=== PATIENT | female | born 1960 | race Caucasian/White ===

== ENCOUNTER 2022-03-27 15:31 | Outpatient (REF) | payer BC, SELFPAY ==
--- NOTE | ~2022-03-27 | XR_ITS ---
EXAMINATION: XR CHEST CLINICAL INFORMATION: Acute bronchitis. COMPARISON: None TECHNIQUE: 2 views of the chest were obtained. FINDINGS: Patchy and dense consolidation suggestive of pneumonia at the right lower lobe. Left lung is normally aerated. There is probably a right pleural effusion. No significant left pleural effusion. No pulmonary vascular congestion. XR/XR chest 2V IMPRESSION: Right lower lobe pneumonia. Probable small right pleural effusion.
== END 2022-03-27 15:32 | disposition home or self-care (01) ==
LOC: HO.HMGCX 15:31
PROVIDERS: PCP Internal Medicine; Visit Provider Internal Medicine
DX: J20.9 Acute bronchitis, unspecified (principal)
CPT/HCPCS: 71046

== ENCOUNTER 2022-03-27 18:14 | Inpatient (IN) | payer BC, SELFPAY ==
--- NOTE | ~2022-03-27 | XR_ITS ---
EXAMINATION: XR CHEST CLINICAL INFORMATION: Chest tube COMPARISON: 03/28/2022 TECHNIQUE: Frontal view of the chest was obtained. FINDINGS: Right-sided chest tube is unchanged. Small right pleural effusion. Similar appearance of the mid to lower lung airspace opacity on the right. The left lung is clear. No pneumothorax. The cardiomediastinal silhouette is unchanged. XR/XR chest 1V IMPRESSION: Right-sided chest tube remains in place with small right pleural effusion. Similar right mid to lower lung airspace opacity.
--- NOTE | ~2022-03-27 | XR_ITS ---
EXAMINATION: XR CHEST CLINICAL INFORMATION: Chest tube insertion. COMPARISON: 03/27/2022 chest radiographs and chest CT scan from today. TECHNIQUE: Frontal view of the chest was obtained. FINDINGS: Support devices: Right chest tube with tip terminating overlying the right upper lobe. Persistent opacification at the right lung base. No overt pneumothorax. The left lung is clear. The heart and mediastinal structures are unremarkable. XR/XR chest 1V IMPRESSION: Persistent right pleural effusion appears similar if not mildly decreased with right chest tube in place. No overt pneumothorax.
--- NOTE | ~2022-03-27 | XR_ITS ---
EXAMINATION: XR CHEST CLINICAL INFORMATION: Hypoxia COMPARISON: 03/29/2022 TECHNIQUE: Frontal view of the chest was obtained. FINDINGS: Right-sided chest tube in place. The lungs are well expanded. Streaky basilar opacities bilaterally. No pleural effusion or pneumothorax. The cardiomediastinal silhouette is within normal limits. XR/XR chest 1V IMPRESSION: Streaky basilar opacities favor atelectasis. No dense consolidation. No pleural effusion or pneumothorax.
--- NOTE | ~2022-03-27 | XR_ITS ---
EXAMINATION: XR CHEST CLINICAL INFORMATION: Postop day 2 status post right VATS pleural decortication COMPARISON: 03/31/2022 TECHNIQUE: Frontal view of the chest was obtained. FINDINGS: Right-sided chest tube extends toward the apex. Decreasing opacification at the right base compared to prior. Persistent left basilar opacity. No definite pneumothorax seen. The cardiomediastinal silhouette is unchanged. XR/XR chest 1V IMPRESSION: Right-sided chest tube in place with no definite pneumothorax seen. Decreasing right basilar opacity. Similar opacity at the left base.
--- NOTE | ~2022-03-27 | XR_ITS ---
EXAMINATION: XR CHEST CLINICAL INFORMATION: Pneumonia. Follow-up. COMPARISON: Chest radiographs 04/02/2022, 04/01/2022, 03/31/2022, 03/30/2022 TECHNIQUE: Portable upright AP view of the chest was obtained. FINDINGS: Patchy airspace opacity right base is stable to decreased when compared with prior exam 04/02/2022. There is resolution airspace opacities left base since 03/30/2022. The vascularity is normal. The visualized cardiac and mediastinal contours and bony structures are stable. XR/XR chest 1V IMPRESSION: -Patchy airspace opacity right base stable to decreased when compared with 04/02/2022. -Resolution left base opacities since 03/30/2022.
--- NOTE | ~2022-03-27 | CT_ITS ---
EXAMINATION: CT CHEST WITHOUT CONTRAST CLINICAL INFORMATION: Pneumonia/sepsis COMPARISON: None TECHNIQUE: Multidetector volumetric CT imaging of the chest was done. Axial MIP volume rendering provided. Sagittal and coronal reformatted images were obtained. This CT examination was performed using dose optimization techniques as appropriate, variously including the following: *Automated exposure control *Adjustment of mA and/or kV according to patient size (this includes techniques or standardized protocols for targeted exams where dose is matched to indication/reason for exam; i.e. extremities or head) *Use of iterative reconstruction technique DLP: 220 mGy-cm FINDINGS: PMP: Inflated lungs with moderate opacity in the right lower lung. LUNGS: There is right lower lobe collapse secondary to large loculated right pleural effusion. The left lung is expanded is platelike atelectasis of the left lung base. Patchy peripheral-based groundglass opacity seen in the lingula left upper lobe, suspicious for infiltrates. There are small pulmonary cysts and bilateral lung apices.. MEDIASTINUM: The thyroid lobes are symmetrical and normal. The central trachea and the bronchi widely patent. Heart size and the great vessels are normal caliber. No pericardial effusion seen. No abnormal size mediastinal or hilar lymph nodes seen. CORONARY ARTERY CALCIFICATION: No calcification seen in the coronary arteries. PLEURA: There is a loculated large right pleural effusion. No pleural calcification or thickening seen. AXILLA: No abnormal size axillary lymph nodes seen. The chest wall is unremarkable. UPPER ABDOMEN: Visualized liver, spleen, pancreas and bilateral adrenal glands unremarkable. OSSEOUS STRUCTURES: No aggressive lytic or sclerotic process seen. There is mild ventral spondylosis mid dorsal spine. CT/CT chest wo IV con IMPRESSION: 1. Large loculated right pleural effusion with right lower lobe collapse. 2. There is platelike atelectasis left lung base. 3. There are patchy peripheral-based groundglass opacity in the lingula and left upper lobe, suspicious for developing infiltrates. 4. No abnormal mediastinal or axillary lymph nodes seen. Fleischner guidelines were followed.
--- NOTE | ~2022-03-27 | XR_ITS ---
EXAMINATION: XR chest 1V CLINICAL INFORMATION: Reason for Exam s/p R VATS decortication. in PACU COMPARISON: Chest radiograph 03/30/2022 TECHNIQUE: One view of the chest FINDINGS: Right-sided thoracostomy tube in place with interval development of a new trace right lateral pneumothorax and new right chest wall subcutaneous emphysema. Slightly increased bibasilar opacities which may reflect worsening atelectasis, aspiration or infection. No pleural effusion. Unchanged cardiomediastinal silhouette. XR/XR chest 1V IMPRESSION: * Right-sided thoracostomy tube in place with interval development of a new trace right lateral pneumothorax and new right chest wall subcutaneous emphysema. * Slightly increased bibasilar opacities which may reflect worsening atelectasis, aspiration or infection. These critical results were discussed with Dr. Kulkarni by telephone at 03/30/2022 10:21 PM and it was ascertained that the content and urgency of the report was understood at the time of direct communication.
--- NOTE | ~2022-03-27 | XR_ITS ---
EXAMINATION: XR CHEST CLINICAL INFORMATION: Postop day 3 status post R VATS decortication. COMPARISON: 04/01/2022 TECHNIQUE: Frontal view of the chest was obtained. FINDINGS: Cardiac leads overlie the chest. Right-sided chest tube in place. Elevated right hemidiaphragm. Airspace opacity of the right base appears increased from prior. No pleural effusion or pneumothorax. The cardiomediastinal silhouette is unchanged. XR/XR chest 1V IMPRESSION: Increased right basilar airspace opacity which could represent atelectasis or pneumonia. Elevated right hemidiaphragm. No pneumothorax.
--- NOTE | ~2022-03-27 | XR_ITS ---
EXAMINATION: XR CHEST CLINICAL INFORMATION: Postop day 1 status post R VATS decortication. COMPARISON: 03/30/2022 TECHNIQUE: Frontal view of the chest was obtained. FINDINGS: Right-sided chest tube remains extending toward the apex. Subcutaneous emphysema of the right chest wall again noted. Cardiac leads overlie the chest. The lungs are well expanded. Improving aeration in the retrocardiac region. Increased small right pleural effusion. Trace right apical pneumothorax is again suspected. The cardiomediastinal silhouette is unchanged. XR/XR chest 1V IMPRESSION: 1. Right-sided chest tube remains in place. Trace right apical pneumothorax is again suspected. 2. Increased small right pleural effusion. 3. Improving aeration at the left base.
--- NOTE | 2022-03-27 18:31 | ED.URI ---
HPI - URI/Sore Throat General Chief Complaint: Dyspnea <TYRA Hinson - Last Filed: 03/27/22 18:41> Stated Complaint: dr sent her in/ pneumonia? <TYRA Hinson - Last Filed: 03/27/22 18:41> Time Seen by Provider: 03/27/22 19:40 <TYRA Hinson - Last Filed: 03/27/22 18:41> Source: patient <Elen Soto MD - Last Filed: 03/27/22 20:47> Mode of arrival: ambulatory <Elen Soto MD - Last Filed: 03/27/22 20:47> Limitations: no limitations <Elen Soto MD - Last Filed: 03/27/22 20:47> History of Present Illness HPI Narrative: Patient comes to the emergency room complaining of shortness of breath for 3 days. Patient states that around [place] time, patient was diagnosed with a URI, slowly started getting better. However, over last 3 days, symptoms got actually worse. Patient states she went to see her primary care physician, a chest x-ray was taken today, patient was diagnosed with pneumonia, patient's oxygen saturation is 91% on room air and drops to the high 80s with minimal exertion. Patient has not been formally diagnosed with COPD, but patient has been a long-time smoker, quit smoking approximately a month ago. Patient is not oxygen dependent. Patient denies nausea vomiting diarrhea abdominal pain. No UTI symptoms. No lower extremity pain or swelling. <Elen Soto MD - Last Filed: 03/27/22 20:47> Related Data Home Medications: Home Medications Medication Instructions Recorded Confirmed flu vac qs 2019(4 yr up)CD(PF) 60 ml IM 02/17/20 02/17/20 mcg(15 mcgx4)/0.5 mL IM syringe pneumococcal 23-juan ps vaccine 25 ml IM 02/17/20 02/17/20 mcg/0.5 mL injection syringe varicella-zoster glycoE [id number] IM 02/17/20 02/17/20 adj(PF) 50 mcg/0.5 mL IM susp, kit Previous Rx's Medication Instructions Recorded buspirone 5 mg tablet 5 mg PO BID #180 tabs 03/18/20 fluoxetine 20 mg tablet 20 mg PO DAILY #90 tabs 06/10/21 <TYRA Hinson - Last Filed: 03/27/22 18:41> Allergies/Adverse Reactions: Allergies Allergy/AdvReac Type Severity Reaction Status Date / Time sulfamethoxazole Allergy Unknown unknown Verified 03/27/22 14:42 <TYRA Hinson - Last Filed: 03/27/22 18:41> Review of Systems Review of Systems: Constitutional : No Weight loss, No Fever, No Chills, No Night Sweats, No Fatigue, No Malaise ENT/Mouth : No Hearing loss, No Ear Pain, No Nasal Congestion, No Sinus Pain, No Hoarseness, No sore throat, No Rhinorrhea, No Swallowing Difficulty Eyes: No Eye Pain, No Swelling, No Redness, No Foreign Body, No Discharge, No Vision Changes Cardiovascular : No Chest Pain, no orthopnea, no edema or palpitations Respiratory : Complaining of cough, a bit of wheezing and shortness of breath worse with exertion. Gastrointestinal : No Nausea, No Vomiting, No Diarrhea, No Constipation, No abdominal Pain, No Hematochezia, No Melena Genitourinary : no irregular bleeding, No Dysuria, No Urinary Frequency, No Hematuria, No Urinary Incontinence, No Urgency, No Flank Pain, No Urinary Flow Changes, No Hesitancy Musculoskeletal : No joint pain, No Myalgias, No Joint Swelling Skin : No Skin Lesions, No rash Neuro : No Weakness, No Numbness, No Paresthesias, No Loss of Consciousness, No Dizziness, No Headache Psych : No Anxiety/Panic, No Depression, No SI/HI/AH/VH, No Social Issues, Heme/Lymph: No Bruising, No Bleeding,No Lymphadenopathy Endocrine : No Polyuria, No Polydipsia, No Temperature Intolerance <Elen Soto MD - Last Filed: 03/27/22 20:47> [facility] Past Medical History Medical History: Medical History Anxiety Basal cell carcinoma Depression DJD (degenerative joint disease) <TYRA Hinson - Last Filed: 03/27/22 18:41> Family History Family History: Family History (Updated 02/11/20 @ 11:06 by Sharon Strange, RMA, [employer]) Father Cancer Mother HTN (hypertension) <TYRA Hinson Last Filed: 03/27/22 18:41> Social History Social History: Social History Advance Directives: No Advance Directives Information Provided: No <TYRA Hinson - Last Filed: 03/27/22 18:41> Physical Exam Vital Signs: Vital Signs: Last Vital Signs Temp 99.4 F 03/27/22 19:42 Pulse 91 03/27/22 19:42 Resp 21 H 03/27/22 19:42 BP 124/68 03/27/22 19:42 Pulse Ox 94 03/27/22 19:42 O2 Del Method 03/27/22 19:42 O2 Flow Rate 3 03/27/22 19:42 BMI result Body Mass Index 25.0 <TYRA Hinson - Last Filed: 03/27/22 18:41> Vital Signs: Last Vital Signs Temp 99.4 F 03/27/22 19:42 Pulse 91 03/27/22 19:42 Resp 21 H 03/27/22 19:42 BP 124/68 03/27/22 19:42 Pulse Ox 94 03/27/22 19:42 O2 Del Method 03/27/22 19:42 O2 Flow Rate 3 03/27/22 19:42 BMI result Body Mass Index 25.0 <Elen Soto MD - Last Filed: 03/27/22 20:47> Const: Other: Appearance: Alert. Oriented X3. No acute distress. Eyes: Pupils equal, round and reactive to light. ENT: Pharynx normal. Neck: Normal inspection. Neck supple. No lymph nodes noted. No crepitus CVS: Normal heart rate and rhythm. Pulses normal. Normal S1 and S2 Respiratory: No respiratory distress. Oxygen saturation drops to 87 % on 2 L while talking or minimal exertion. Patient's oxygen saturation in the mid 90s on 2 L. Abdomen: Soft and nontender. No rigidity. No distention. Skin: Skin warm and dry. Normal skin color. Normal skin turgor. Extremities: No lower extremity edema. No Lacerations. No Rash Neuro: Oriented X 3. No motor deficit. No sensory deficit. Moving all extremities. No slurred speech. CN 2 through 12 grossly intact Psych: calm, cooperative, normal affect <Elen Soto MD - Last Filed: 03/27/22 20:47> Course Course Course Narrative: RUTHIE--62-year-old female with a past medical history of anxiety, basal cell carcinoma, depression, DJD, sent in from Urgent Care for pneumonia appreciated on outpatient x-ray. Patient reports increasing SOB since Sunday. Tachycardic, hypoxic to 91% on RA, diminished lung sounds throughout with expiratory wheeze EKG, labs, lactic/blood cultures, IVF, DuoNeb, Azithromax & Rocephin ordered in triage <TYRA Hinson - Last Filed: 03/27/22 18:41> Medications Administered Discontinued Medications Generic Name Dose Route Start Last Admin Trade Name Freq PRN Reason Stop Dose Admin Albuterol Sulfate 7.5 mg/ 0 mg 03/27/22 18:35 03/27/22 19:18 Ipratropium [place] 0.5 mg INHALE 03/27/22 18:36 7.5 each ONCE ONE Administration Ceftriaxone Sodium 1 gm/ 50 mls @ 100 mls/hr 03/27/22 18:33 03/27/22 20:17 Sodium Chloride IV 03/27/22 19:02 Infused ONCE ONE Infusion Azithromycin 500 mg/ Sodium 250 mls @ 125 mls/hr 03/27/22 18:33 03/27/22 20:17 Chloride IV 03/27/22 20:32 125 mls/hr ONCE ONE Administration Sodium Chloride 500 mls @ 999 mls/hr 03/27/22 18:45 03/27/22 20:17 Ns IV 03/27/22 19:15 Infused .Q31M MARTÍN Infusion <TYRA Hinson - Last Filed: 03/27/22 18:41> Medications Administered Discontinued Medications Generic Name Dose Route Start Last Admin Trade Name Freq PRN Reason Stop Dose Admin Albuterol Sulfate 7.5 mg/ 0 mg 03/27/22 18:35 03/27/22 19:18 Ipratropium [place] 0.5 mg INHALE 03/27/22 18:36 7.5 each ONCE ONE Administration Ceftriaxone Sodium 1 gm/ 50 mls @ 100 mls/hr 03/27/22 18:33 03/27/22 20:17 Sodium Chloride IV 03/27/22 19:02 Infused ONCE ONE Infusion Azithromycin 500 mg/ Sodium 250 mls @ 125 mls/hr 03/27/22 18:33 03/27/22 20:17 Chloride IV 03/27/22 20:32 125 mls/hr ONCE ONE Administration Sodium Chloride 500 mls @ 999 mls/hr 03/27/22 18:45 03/27/22 20:17 Ns IV 03/27/22 19:15 Infused .Q31M MARTÍN Infusion <Elen Soto MD - Last Filed: 03/27/22 20:47> Medical Decision Making Medical Decision Making [facility] Narrative: Patient has a very high white blood cell count, 35.7. Lactic acid within normal limits, normal blood pressure. Sepsis not suspected. Patient has already been started on antibiotics, ceftriaxone azithromycin and IV fluids. Chest x-ray shows pneumonia <Elen Soto MD - Last Filed: 03/27/22 20:47> Differential Diagnosis Differential Diagnoses: The differential diagnosis associated with the presentation includes (Pneumonia, CHF, URI, COVID, influenza) <Elen Soto MD - Last Filed: 03/27/22 20:47> Admission/Observation Consideration of admission/observation: Escalation of care including admission/observation considered (Patient's oxygen saturation dropped to the high 80s even on 2 L of oxygen, patient is not oxygen dependent.) <Elen Soto MD - Last Filed: 03/27/22 20:47> Consult Healthcare Provider Management of the patient was discussed with: Hospitalist (Dr. Kulkarni will admit pt to the inpatient service.) <Elen Soto MD - Last Filed: 03/27/22 20:47> Lab Data [facility] Lab Attestation statement: I reviewed the patient's lab results. <Elen Soto MD - Last Filed: 03/27/22 20:47> Result Diagrams: 03/27/22 18:54 03/27/22 18:54 <TYRA Hinson - Last Filed: 03/27/22 18:41> Labs: Lab Results 03/27/22 03/27/22 03/27/22 Range/Units 18:54 18:54 18:54 WBC 35.7 H* (4.8-10.8) X10*3/uL RBC 4.35 (4.20-5.50) X10*6/uL Hgb 12.1 (12.0-16.0) g/dl Hct 37.4 (37.0-47.0) % MCV 86.0 (80.0-98.0) fL MCH 27.8 (27.0-33.0) pg MCHC 32.4 (31.0-35.0) g/dl RDW 13.1 (11.0-16.0) % Plt Count 653 H (160-400) X10*3/uL MPV 8.9 L (9.4-12.3) fL Immature Gran % (Auto) 0.9 H (0.0-0.4) % Neut % (Auto) 91.3 H (45-73) % Lymph % (Auto) 3.6 L (20-40) % [place] % (Auto) 4.0 (2-11) % Eos % (Auto) 0.0 (0-4) % Baso % (Auto) 0.2 (0-2) % Lymph # (Auto) 1.3 (1.2-4.9) X10*3/uL [place] # (Auto) 1.4 H (0.1-1.2) X10*3/uL Eos # (Auto) 0.0 (0.0-0.4) X10*3/uL Baso # (Auto) 0.1 (0.0-0.2) X10*3/uL Abs Immat Gran (auto) 0.31 H (0.00-0.03) X10*3/uL Absolute Neuts (auto) 32.6 H (2.0-8.3) x10*3/uL Absolute Nucleated RBC 0.000 (0.0-0.012) X10*3/uL Nucleated RBC % (auto) 0.0 (0.0-0.2) /100WBC Smear Tech's Comments VERIFIED PT (10.0-13.1) SEC INR (0.9-1.1) Sodium 133 L (135-145) mmol/L Potassium 3.8 (3.3-5.1) mmol/L Chloride 98 (96-108) mmol/L Carbon Dioxide 22 (22-29) mmol/L Anion Gap 17 (12-20) BUN 17 H (9-16) mg/dL Creatinine 0.69 (0.5-1.4) mg/dL Estim Creat Clear Calc 86.4 Estimated GFR > 60 Random Glucose 188 H (60-115) mg/dL Lactic Acid 1.5 (0.5-2.0) mmol/L Calcium 9.0 (8.4-10.2) mg/dL Magnesium 1.9 (1.6-2.6) mg/dL Total Bilirubin 0.3 (0.0-1.0) mg/dL Direct Bilirubin 0.2 (0.0-0.5) mg/dL AST 7 (5-31) U/L ALT 7 (0-31) U/L Alkaline Phosphatase 132 H (39-117) U/L Troponin I High Sens (<3.5-17.0) ng/L B-Natriuretic Peptide (<100) pg/mL Total Protein 6.7 (6.5-8.0) g/dL Albumin 4.0 (3.5-5.0) g/dL Influenza Type A (PCR) (Negative) Influenza Type B (PCR) (Negative) RSV RNA Qual (PCR) (Negative) SARS-CoV-2 RNA (RT-PCR) (Negative) 03/27/22 03/27/22 03/27/22 Range/Units 18:54 18:54 18:54 WBC (4.8-10.8) X10*3/uL RBC (4.20-5.50) X10*6/uL Hgb (12.0-16.0) g/dl Hct (37.0-47.0) % MCV (80.0-98.0) fL MCH (27.0-33.0) pg MCHC (31.0-35.0) g/dl RDW (11.0-16.0) % Plt Count (160-400) X10*3/uL MPV (9.4-12.3) fL Immature Gran % (Auto) (0.0-0.4) % Neut % (Auto) (45-73) % Lymph % (Auto) (20-40) % [place] % (Auto) (2-11) % Eos % (Auto) (0-4) % Baso % (Auto) (0-2) % Lymph # (Auto) (1.2-4.9) X10*3/uL [place] # (Auto) (0.1-1.2) X10*3/uL Eos # (Auto) (0.0-0.4) X10*3/uL Baso # (Auto) (0.0-0.2) X10*3/uL Abs Immat Gran (auto) (0.00-0.03) X10*3/uL Absolute Neuts (auto) (2.0-8.3) x10*3/uL Absolute Nucleated RBC (0.0-0.012) X10*3/uL Nucleated RBC % (auto) (0.0-0.2) /100WBC Smear Tech's Comments PT 15.9 H (10.0-13.1) SEC INR 1.4 H (0.9-1.1) Sodium (135-145) mmol/L Potassium (3.3-5.1) mmol/L Chloride (96-108) mmol/L Carbon Dioxide (22-29) mmol/L Anion Gap (12-20) BUN (9-16) mg/dL Creatinine (0.5-1.4) mg/dL Estim Creat Clear Calc Estimated GFR Random Glucose (60-115) mg/dL Lactic Acid (0.5-2.0) mmol/L Calcium (8.4-10.2) mg/dL Magnesium (1.6-2.6) mg/dL Total Bilirubin (0.0-1.0) mg/dL Direct Bilirubin (0.0-0.5) mg/dL AST (5-31) U/L ALT (0-31) U/L Alkaline Phosphatase (39-117) U/L Troponin I High Sens < 3.5 (<3.5-17.0) ng/L B-Natriuretic Peptide (<100) pg/mL Total Protein (6.5-8.0) g/dL Albumin (3.5-5.0) g/dL Influenza Type A (PCR) NEGATIVE (Negative) Influenza Type B (PCR) NEGATIVE (Negative) RSV RNA Qual (PCR) NEGATIVE (Negative) SARS-CoV-2 RNA (RT-PCR) NEGATIVE (Negative) 03/27/22 Range/Units 18:54 WBC (4.8-10.8) X10*3/uL RBC (4.20-5.50) X10*6/uL Hgb (12.0-16.0) g/dl Hct (37.0-47.0) % MCV (80.0-98.0) fL MCH (27.0-33.0) pg MCHC (31.0-35.0) g/dl RDW (11.0-16.0) % Plt Count (160-400) X10*3/uL MPV (9.4-12.3) fL Immature Gran % (Auto) (0.0-0.4) % Neut % (Auto) (45-73) % Lymph % (Auto) (20-40) % [place] % (Auto) (2-11) % Eos % (Auto) (0-4) % Baso % (Auto) (0-2) % Lymph # (Auto) (1.2-4.9) X10*3/uL [place] # (Auto) (0.1-1.2) X10*3/uL Eos # (Auto) (0.0-0.4) X10*3/uL Baso # (Auto) (0.0-0.2) X10*3/uL Abs Immat Gran (auto) (0.00-0.03) X10*3/uL Absolute Neuts (auto) (2.0-8.3) x10*3/uL Absolute Nucleated RBC (0.0-0.012) X10*3/uL Nucleated RBC % (auto) (0.0-0.2) /100WBC Smear Tech's Comments PT (10.0-13.1) SEC INR (0.9-1.1) Sodium (135-145) mmol/L Potassium (3.3-5.1) mmol/L Chloride (96-108) mmol/L Carbon Dioxide (22-29) mmol/L Anion Gap (12-20) BUN (9-16) mg/dL Creatinine (0.5-1.4) mg/dL Estim Creat Clear Calc Estimated GFR Random Glucose (60-115) mg/dL Lactic Acid (0.5-2.0) mmol/L Calcium (8.4-10.2) mg/dL Magnesium (1.6-2.6) mg/dL Total Bilirubin (0.0-1.0) mg/dL Direct Bilirubin (0.0-0.5) mg/dL AST (5-31) U/L ALT (0-31) U/L Alkaline Phosphatase (39-117) U/L Troponin I High Sens (<3.5-17.0) ng/L B-Natriuretic Peptide 30 (<100) pg/mL Total Protein (6.5-8.0) g/dL Albumin (3.5-5.0) g/dL Influenza Type A (PCR) (Negative) Influenza Type B (PCR) (Negative) RSV RNA Qual (PCR) (Negative) SARS-CoV-2 RNA (RT-PCR) (Negative) <TYRA Hinson - Last Filed: 03/27/22 18:41> Lab Results 03/27/22 03/27/22 03/27/22 Range/Units 18:54 18:54 18:54 WBC 35.7 H* (4.8-10.8) X10*3/uL RBC 4.35 (4.20-5.50) X10*6/uL Hgb 12.1 (12.0-16.0) g/dl Hct 37.4 (37.0-47.0) % MCV 86.0 (80.0-98.0) fL MCH 27.8 (27.0-33.0) pg MCHC 32.4 (31.0-35.0) g/dl RDW 13.1 (11.0-16.0) % Plt Count 653 H (160-400) X10*3/uL MPV 8.9 L (9.4-12.3) fL Immature Gran % (Auto) 0.9 H (0.0-0.4) % Neut % (Auto) 91.3 H (45-73) % Lymph % (Auto) 3.6 L (20-40) % [place] % (Auto) 4.0 (2-11) % Eos % (Auto) 0.0 (0-4) % Baso % (Auto) 0.2 (0-2) % Lymph # (Auto) 1.3 (1.2-4.9) X10*3/uL [place] # (Auto) 1.4 H (0.1-1.2) X10*3/uL Eos # (Auto) 0.0 (0.0-0.4) X10*3/uL Baso # (Auto) 0.1 (0.0-0.2) X10*3/uL Abs Immat Gran (auto) 0.31 H (0.00-0.03) X10*3/uL Absolute Neuts (auto) 32.6 H (2.0-8.3) x10*3/uL Absolute Nucleated RBC 0.000 (0.0-0.012) X10*3/uL Nucleated RBC % (auto) 0.0 (0.0-0.2) /100WBC Smear Tech's Comments VERIFIED PT (10.0-13.1) SEC INR (0.9-1.1) Sodium 133 L (135-145) mmol/L Potassium 3.8 (3.3-5.1) mmol/L Chloride 98 (96-108) mmol/L Carbon Dioxide 22 (22-29) mmol/L Anion Gap 17 (12-20) BUN 17 H (9-16) mg/dL Creatinine 0.69 (0.5-1.4) mg/dL Estim Creat Clear Calc 86.4 Estimated GFR > 60 Random Glucose 188 H (60-115) mg/dL Lactic Acid 1.5 (0.5-2.0) mmol/L Calcium 9.0 (8.4-10.2) mg/dL Magnesium 1.9 (1.6-2.6) mg/dL Total Bilirubin 0.3 (0.0-1.0) mg/dL Direct Bilirubin 0.2 (0.0-0.5) mg/dL AST 7 (5-31) U/L ALT 7 (0-31) U/L Alkaline Phosphatase 132 H (39-117) U/L Troponin I High Sens (<3.5-17.0) ng/L B-Natriuretic Peptide (<100) pg/mL Total Protein 6.7 (6.5-8.0) g/dL Albumin 4.0 (3.5-5.0) g/dL Influenza Type A (PCR) (Negative) Influenza Type B (PCR) (Negative) RSV RNA Qual (PCR) (Negative) SARS-CoV-2 RNA (RT-PCR) (Negative) 03/27/22 03/27/22 03/27/22 Range/Units 18:54 18:54 18:54 WBC (4.8-10.8) X10*3/uL RBC (4.20-5.50) X10*6/uL Hgb (12.0-16.0) g/dl Hct (37.0-47.0) % MCV (80.0-98.0) fL MCH (27.0-33.0) pg MCHC (31.0-35.0) g/dl RDW (11.0-16.0) % Plt Count (160-400) X10*3/uL MPV (9.4-12.3) fL Immature Gran % (Auto) (0.0-0.4) % Neut % (Auto) (45-73) % Lymph % (Auto) (20-40) % [place] % (Auto) (2-11) % Eos % (Auto) (0-4) % Baso % (Auto) (0-2) % Lymph # (Auto) (1.2-4.9) X10*3/uL [place] # (Auto) (0.1-1.2) X10*3/uL Eos # (Auto) (0.0-0.4) X10*3/uL Baso # (Auto) (0.0-0.2) X10*3/uL Abs Immat Gran (auto) (0.00-0.03) X10*3/uL Absolute Neuts (auto) (2.0-8.3) x10*3/uL Absolute Nucleated RBC (0.0-0.012) X10*3/uL Nucleated RBC % (auto) (0.0-0.2) /100WBC Smear Tech's Comments PT 15.9 H (10.0-13.1) SEC INR 1.4 H (0.9-1.1) Sodium (135-145) mmol/L Potassium (3.3-5.1) mmol/L Chloride (96-108) mmol/L Carbon Dioxide (22-29) mmol/L Anion Gap (12-20) BUN (9-16) mg/dL Creatinine (0.5-1.4) mg/dL Estim Creat Clear Calc Estimated GFR Random Glucose (60-115) mg/dL Lactic Acid (0.5-2.0) mmol/L Calcium (8.4-10.2) mg/dL Magnesium (1.6-2.6) mg/dL Total Bilirubin (0.0-1.0) mg/dL Direct Bilirubin (0.0-0.5) mg/dL AST (5-31) U/L ALT (0-31) U/L Alkaline Phosphatase (39-117) U/L Troponin I High Sens < 3.5 (<3.5-17.0) ng/L B-Natriuretic Peptide (<100) pg/mL Total Protein (6.5-8.0) g/dL Albumin (3.5-5.0) g/dL Influenza Type A (PCR) NEGATIVE (Negative) Influenza Type B (PCR) NEGATIVE (Negative) RSV RNA Qual (PCR) NEGATIVE (Negative) SARS-CoV-2 RNA (RT-PCR) NEGATIVE (Negative) 03/27/22 Range/Units 18:54 WBC (4.8-10.8) X10*3/uL RBC (4.20-5.50) X10*6/uL Hgb (12.0-16.0) g/dl Hct (37.0-47.0) % MCV (80.0-98.0) fL MCH (27.0-33.0) pg MCHC (31.0-35.0) g/dl RDW (11.0-16.0) % Plt Count (160-400) X10*3/uL MPV (9.4-12.3) fL Immature Gran % (Auto) (0.0-0.4) % Neut % (Auto) (45-73) % Lymph % (Auto) (20-40) % [place] % (Auto) (2-11) % Eos % (Auto) (0-4) % Baso % (Auto) (0-2) % Lymph # (Auto) (1.2-4.9) X10*3/uL [place] # (Auto) (0.1-1.2) X10*3/uL Eos # (Auto) (0.0-0.4) X10*3/uL Baso # (Auto) (0.0-0.2) X10*3/uL Abs Immat Gran (auto) (0.00-0.03) X10*3/uL Absolute Neuts (auto) (2.0-8.3) x10*3/uL Absolute Nucleated RBC (0.0-0.012) X10*3/uL Nucleated RBC % (auto) (0.0-0.2) /100WBC Smear Tech's Comments PT (10.0-13.1) SEC INR (0.9-1.1) Sodium (135-145) mmol/L Potassium (3.3-5.1) mmol/L Chloride (96-108) mmol/L Carbon Dioxide (22-29) mmol/L Anion Gap (12-20) BUN (9-16) mg/dL Creatinine (0.5-1.4) mg/dL Estim Creat Clear Calc Estimated GFR Random Glucose (60-115) mg/dL Lactic Acid (0.5-2.0) mmol/L Calcium (8.4-10.2) mg/dL Magnesium (1.6-2.6) mg/dL Total Bilirubin (0.0-1.0) mg/dL Direct Bilirubin (0.0-0.5) mg/dL AST (5-31) U/L ALT (0-31) U/L Alkaline Phosphatase (39-117) U/L Troponin I High Sens (<3.5-17.0) ng/L B-Natriuretic Peptide 30 (<100) pg/mL Total Protein (6.5-8.0) g/dL Albumin (3.5-5.0) g/dL Influenza Type A (PCR) (Negative) Influenza Type B (PCR) (Negative) RSV RNA Qual (PCR) (Negative) SARS-CoV-2 RNA (RT-PCR) (Negative) <Elen Soto MD - Last Filed: 03/27/22 20:47> Independent Interpretation I performed an independent interpretation of an: EKG (EKG my interpretation, sinus rhythm, heart rate 106, nonspecific T-wave inversions in lead 3 and AVF, QTC 425) and Plain X-Ray (My interpretation of chest x-ray: Right pleural effusion versus pneumonia) <Elen Soto MD - Last Filed: 03/27/22 20:47> Radiology Impression Discussion of test interpretation with radiology: I have reviewed the radiologist's reading. <Elen Soto MD - Last Filed: 03/27/22 20:47> Radiologist Impression: FINDINGS: Patchy and dense consolidation suggestive of pneumonia at the right lower lobe. Left lung is normally aerated. There is probably a right pleural effusion. No significant left pleural effusion. No pulmonary vascular congestion. XR/XR chest 2V IMPRESSION: Right lower lobe pneumonia. Probable small right pleural effusion. <Elen Soto MD - Last Filed: 03/27/22 20:47> Critical Care Time Critical Care Time Critical Care Time: Yes <Elen Soto MD - Last Filed: 03/27/22 20:47> Total Critical Care Time: 60 <Elen Soto MD - Last Filed: 03/27/22 20:47> Attestation: I have personally provided critical care time. Time includes review of lab data, radiology results, discussion with consultants, and monitoring for potential decompensation. Intervention performed as documented. <Elen Soto MD - Last Filed: 03/27/22 20:47> Discharge Plan Discharge Clinical Impression: Pneumonia <TYRA Hinson - Last Filed: 03/27/22 18:41> Patient Disposition: Admitted As Inpatient <TYRA Hinson - Last Filed: 03/27/22 18:41> Prescriptions: No Action buspirone 5 mg tablet 5 mg PO BID Qty: 180 6RF fluoxetine 20 mg tablet 20 mg PO DAILY Qty: 90 4RF Flucelvax Quad [id number] (PF) 60 mcg (15 mcg x 4)/0.5 mL syringe IM Shingrix (PF) 50 mcg/0.5 mL suspension for reconstitution IM Pneumovax-23 25 mcg/0.5 mL syringe IM <TYRA Hinson - Last Filed: 03/27/22 18:41>
[2022-03-27 18:32] VITALS: BP 184/86; PULSE 112; RESP 24; TEMP 36.9; O2SAT 91; BMI 25.0
--- NOTE | 2022-03-27 18:33 | ECG_ITS ---
Test Reason : SOB Blood Pressure : / mmHG Vent. Rate : 106 BPM Atrial Rate : 106 BPM P-R Int : 176 ms QRS Dur : 086 ms QT Int : 320 ms P-R-T Axes : 029 000 -24 degrees QTc Int : 425 ms Sinus tachycardia Possible Left atrial enlargement ST & T wave abnormality, consider inferior ischemia Abnormal ECG No previous ECGs available Referred By: Kalani Samuels Electronically Signed By:Dallas Scott
[2022-03-27 19:04] LABS: Basophils Absolute Auto 0.1 X10*3/uL (0.0-0.2); Basophils Percent Auto 0.2 % (0-2); Hematocrit 37.4 % (37.0-47.0); Hemoglobin 12.1 g/dl (12.0-16.0); Imm Gran Abs Auto 0.31 X10*3/uL (0.00-0.03); Imm Gran Pct Auto 0.9 % (0.0-0.4); Lymphocytes Absolute Auto 1.3 X10*3/uL (1.2-4.9); Lymphocytes Percent Auto 3.6 % (20-40); MANUAL DIFF FLAG SCAN; Mean Corpuscular HGB Conc 32.4 g/dl (31.0-35.0); Mean Corpuscular Hemoglobin 27.8 pg (27.0-33.0); Mean Platelet Volume 8.9 fL (9.4-12.3); Monocytes Absolute Auto 1.4 X10*3/uL (0.1-1.2); Neutrophils Absolute Auto 32.6 x10*3/uL (2.0-8.3); Neutrophils Percent Auto 91.3 % (45-73); Platelet Count 653 X10*3/uL (160-400); Red Blood Count 4.35 X10*6/uL (4.20-5.50); Red Cell Distribution Width 13.1 % (11.0-16.0); SCAN SMEAR FLAG 1
[2022-03-27 19:08] LABS: White Blood Count 35.7 X10*3/uL (4.8-10.8)
[2022-03-27 19:10] LABS: INTERNATIONAL NORM RATIO 1.4 (0.9-1.1); Prothrombin Time 15.9 SEC (10.0-13.1)
[2022-03-27 19:16] LABS: Lactic Acid 1.5 mmol/L (0.5-2.0)
[2022-03-27 19:21] VITALS: PULSE 98; RESP 27; O2SAT 96
[2022-03-27 19:21] LABS: Alanine Aminotransferase 7 U/L (0-31); Alkaline Phosphatase 132 U/L (39-117); Anion Gap 17 (12-20); Aspartate Amino Transferase 7 U/L (5-31); Bilirubin Direct 0.2 mg/dL (0.0-0.5); Bilirubin Total 0.3 mg/dL (0.0-1.0); Blood Urea Nitrogen 17 mg/dL (9-16); Carbon Dioxide 22 mmol/L (22-29); Chloride 98 mmol/L (96-108); Creatinine Clr Calc Pharmacy 86.4; Estimated Glomerular Filt Rate > 60; Glucose Random 188 mg/dL (60-115); Magnesium 1.9 mg/dL (1.6-2.6); Potassium 3.8 mmol/L (3.3-5.1); Sodium 133 mmol/L (135-145); Total Protein 6.7 g/dL (6.5-8.0)
[2022-03-27] MEDS: cefTRIAXone sodium 1 GM in 0.9 % Sodium Chloride 50 ML IV (19:25)
[2022-03-27 19:26] LABS: B Type Natriuretic Peptide 30 pg/mL (<100)
[2022-03-27] MEDS: 0.9 % Sodium Chloride 500 ML 999 ML IV (19:26)
[2022-03-27 19:28] LABS: Troponin-I High Sensitivity < 3.5 ng/L (<3.5-17.0)
--- NOTE | 2022-03-27 19:29 | PC.NURSE ---
this rn assumed care of pt at 0. remaining lab work obtained iv placed. pt medicated according to may. RT at bedside. pt resting comfortably on stretcher at this time
[2022-03-27 19:42] VITALS: BP 124/68; PULSE 91; RESP 21; TEMP 37.4; O2SAT 94
[2022-03-27 19:44] LABS: SLIDE REVIEW VERIFIED
[2022-03-27 19:45] LABS: Influenza A PCR NEGATIVE (Negative); Influenza B PCR NEGATIVE (Negative); Resp Syncy Virus RNA Qual PCR NEGATIVE (Negative); SARS COV2 PCR INHOUSE NEGATIVE (Negative)
[2022-03-27] MEDS: Azithromycin 500 MG in 0.9 % Sodium Chloride 250 ML 125 MG IV (20:17)
[2022-03-27 20:30] VITALS: BP 124/75; PULSE 87
[2022-03-27 20:48] VITALS: BP 129/76; PULSE 89; RESP 28; O2SAT 93
--- NOTE | 2022-03-27 20:56 | PHA.MEDREC ---
Pharmacy Consult ? Medication Reconciliation Pharmacy has completed the medication reconciliation. Spoke with patient who knew all home meds. patient did not take any medications today.
--- NOTE | 2022-03-27 21:35 | PC.NURSE ---
this rn asssisted pt in using bedside commode. pt daughter at bedside at this time. pt repositioned back to bed hospitalist at bedside at this time for assessment
[2022-03-27 21:53] VITALS: BP 136/80; PULSE 87; RESP 29; TEMP 36.7; O2SAT 92
--- NOTE | 2022-03-27 22:37 | P.HPHOSP_ITS ---
History of Present Illness Date of Service: 03/27/22 Chief Complaint: fatigue 62-year-old female with past medical history of basal cell carcinoma, depression, anxiety presents to the hospital with complaints of shortness of breath, significant fatigue, cough. Patient reports that her symptoms started in February, slightly improved at the end of the month but reoccurred about 3 days ago. patient reports no fever or chills, reports significant fatigue or she is sleeping most of the time, has cough, significant shortness of breath. patient otherwise denies any chest pain, no abdominal pain nausea or vomiting, she has poor appetite and low oral intake. Denies any urinary symptoms and no lower extremity edema. On arrival to the ED patient found to be hypoxic with minimal movement dropping to 91% at rest. Labs are significant for WBC count of 35.7, viral serology negative Chest x-ray shows right lower lobe pneumonia Review of Systems Review of Systems: Yes all other systems are reviewed and are negative [facility] Medical History Anxiety Basal cell carcinoma Depression DJD (degenerative joint disease) Family History Father Cancer Mother HTN (hypertension) Social History Smoked in Last 30 Days: No Use of substances other than those prescribed or required for medical reasons: No Advance Directives: No Advance Directives Information Provided: No Patient : No Meds Allergies Allergy/AdvReac Type Severity Reaction Status Date / Time sulfamethoxazole Allergy Unknown unknown Verified 03/27/22 14:42 Active Medications: Current Medications Pharmacy Consult (Consult Rx Perform Med Rec) 1 each MISCELLANE ONCE PRN PRN Reason: Consult order Home Medications Medication Instructions Recorded Confirmed Last Taken Type apple cider vinegar 300 mg tablet 300 mg PO DAILY 03/27/22 03/27/22 Unknown History claudia (Zingiber officinalis) 250 250 mg PO DAILY 03/27/22 03/27/22 Unknown History mg capsule (claudia extract) multivitamin 1 tab PO DAILY 03/27/22 03/27/22 Unknown History oxycodone 15 mg tablet 1 tab PO Q6H PRN severe pain 03/27/22 03/27/22 Unknown History pregabalin 225 mg capsule 1 cap PO BID 03/27/22 03/27/22 Unknown History turmeric root extract 500 mg 500 mg PO DAILY 03/27/22 03/27/22 Unknown History capsule Physical Exam Vital Signs and Narrative: Vital Signs: Last Vital Signs Temp 98.1 F 03/27/22 21:53 Pulse 87 03/27/22 21:53 Resp 29 H 03/27/22 21:53 BP 136/80 03/27/22 21:53 Pulse Ox 92 03/27/22 21:53 O2 Del Method 03/27/22 21:53 O2 Flow Rate 2 03/27/22 21:53 BMI result Body Mass Index 25.0 Const: General: cooperative and no acute distress Mauricio entation/consciousness: patient oriented x3 Eyes: General: appearance normal, both eyes and all related structures Resp: Other: right lower lobe crackles Effort & Inspection: normal respiratory effort Cardio: Rate: regular rate Rhythm: regular rhythm GI: Palpation (GI): Soft to palpation Auscultation: normal bowel sounds Skin: General skin exam: no rashes or lesions noted Neuro: General: patient oriented x3 Cognition (Neuro): normal cognition Extrem: General: Yes normal to inspection and Yes no pedal edema Results Labs 03/27/22 18:54 03/27/22 18:54 Labs: Laboratory Results - last 24 hr 03/27/22 03/27/22 03/27/22 18:54 18:54 18:54 MCV 86.0 MCH 27.8 MCHC 32.4 RDW 13.1 Plt Count 653 H MPV 8.9 L Immature Gran % (Auto) 0.9 H Neut % (Auto) 91.3 H Lymph % (Auto) 3.6 L [place] % (Auto) 4.0 Eos % (Auto) 0.0 Baso % (Auto) 0.2 Lymph # (Auto) 1.3 [place] # (Auto) 1.4 H Eos # (Auto) 0.0 Baso # (Auto) 0.1 Abs Immat Gran (auto) 0.31 H Absolute Neuts (auto) 32.6 H Absolute Nucleated RBC 0.000 Nucleated RBC % (auto) 0.0 Smear Tech's Comments VERIFIED PT INR Anion Gap 17 Estim Creat Clear Calc 86.4 Estimated GFR > 60 Random Glucose 188 H Lactic Acid 1.5 Calcium 9.0 Magnesium 1.9 Total Bilirubin 0.3 Direct Bilirubin 0.2 AST 7 ALT 7 Alkaline Phosphatase 132 H Troponin I High Sens B-Natriuretic Peptide Total Protein 6.7 Albumin 4.0 Influenza Type A (PCR) Influenza Type B (PCR) RSV RNA Qual (PCR) SARS-CoV-2 RNA (RT-PCR) 03/27/22 03/27/22 03/27/22 18:54 18:54 18:54 MCV MCH MCHC RDW Plt Count MPV Immature Gran % (Auto) Neut % (Auto) Lymph % (Auto) [place] % (Auto) Eos % (Auto) Baso % (Auto) Lymph # (Auto) Dod[place] # (Auto) Eos # (Auto) Baso # (Auto) Abs Immat Gran (auto) Absolute Neuts (auto) Absolute Nucleated RBC Nucleated RBC % (auto) Smear Tech's Comments PT 15.9 H INR 1.4 H Anion Gap Estim Creat Clear Calc Estimated GFR Random Glucose Lactic Acid Calcium Magnesium Total Bilirubin Direct Bilirubin AST ALT Alkaline Phosphatase Troponin I High Sens < 3.5 B-Natriuretic Peptide Total Protein Albumin Influenza Type A (PCR) NEGATIVE Influenza Type B (PCR) NEGATIVE RSV RNA Qual (PCR) NEGATIVE SARS-CoV-2 RNA (RT-PCR) NEGATIVE 03/27/22 18:54 MCV MCH MCHC RDW Plt Count MPV Immature Gran % (Auto) Neut % (Auto) Lymph % (Auto) [place] % (Auto) Eos % (Auto) Baso % (Auto) Lymph # (Auto) [place] # (Auto) Eos # (Auto) Baso # (Auto) Abs Immat Gran (auto) Absolute Neuts (auto) Absolute Nucleated RBC Nucleated RBC % (auto) Smear Tech's Comments PT INR Anion Gap Estim Creat Clear Calc Estimated GFR Random Glucose Lactic Acid Calcium Magnesium Total Bilirubin Direct Bilirubin AST ALT Alkaline Phosphatase Troponin I High Sens B-Natriuretic Peptide 30 Total Protein Albumin Influenza Type A (PCR) Influenza Type B (PCR) RSV RNA Qual (PCR) SARS-CoV-2 RNA (RT-PCR) Assessment and Plan (1) Pneumonia: Status: Acute (2) Acute bronchitis: Status: Acute (3) Acute respiratory failure with hypoxia: Status: Acute Plan 62-year-old female with past medical history of depression anxiety presents the hospital with acute respiratory failure found to have pneumonia # acute hypoxic respiratory failure - oxygen dropping to 90 at rest, becoming dyspneic on minimal of her knee even when talking - likely secondary to acute pneumonia - which she with IV antibiotics - continue O2, , wean off as tolerated # community-acquired pneumonia - likely superimposed given recent viral infection - with she with IV antibiotics - follow cultures DVT prophylaxis: Lovenox given hypoxia and requirement for oxygen as well as IV antibiotics for pneumonia patient required minimum 2 night inpatient stay for further management Time Spent With Patient Time: Total time managing care of this patient today ____ minutes. Quality Stroke Does the patient have a stroke diagnosis?: No VTE Prior VTE?: No VTE Risk Level:: Medical - moderate - high VTE Device Contraindication: Treatment Not Indicated VTE Drug Contraindication: N/A - Med Ordered
[2022-03-27] MEDS: Pregabalin 75 MG CAPSULE 225 MG PO (23:00)
[2022-03-27] MEDS: Enoxaparin Sodium 40 MG/0.4 ML SYRINGE SUBCUT (23:00)
[2022-03-28] VITALS (16 sets, daily range): BP systolic 124–155; BP diastolic 69–86; PULSE 91–106; RESP 17–31; TEMP 36.6–37.7; O2SAT 90–96
[2022-03-28] MEDS: 0.9 % Sodium Chloride Flush 3 ML SYRINGE IVFLUSH ×4 (00:34→23:59)
[2022-03-28] MEDS: methylPREDNISolone Sod Succ 40 MG/ML VIAL IVPUSH ×2 (00:34→09:01)
[2022-03-28 06:55] LABS: Basophils Absolute Auto 0.1 X10*3/uL (0.0-0.2); Basophils Percent Auto 0.3 % (0-2); Eosinophils Absolute Auto 0.1 X10*3/uL (0.0-0.4); Eosinophils Percent Auto 0.2 % (0-4); Hematocrit 35.8 % (37.0-47.0); Imm Gran Abs Auto 0.71 X10*3/uL (0.00-0.03); Imm Gran Pct Auto 1.8 % (0.0-0.4); Lymphocytes Absolute Auto 0.9 X10*3/uL (1.2-4.9); Lymphocytes Percent Auto 2.3 % (20-40); MANUAL DIFF FLAG SCAN; Mean Corpuscular HGB Conc 33.5 g/dl (31.0-35.0); Mean Corpuscular Volume 86.5 fL (80.0-98.0); Monocytes Percent Auto 2.4 % (2-11); Neutrophils Absolute Auto 36.2 x10*3/uL (2.0-8.3); Platelet Count 596 X10*3/uL (160-400); Red Blood Count 4.14 X10*6/uL (4.20-5.50); Red Cell Distribution Width 13.3 % (11.0-16.0); SCAN SMEAR FLAG 1
[2022-03-28 07:01] LABS: White Blood Count 38.9 X10*3/uL (4.8-10.8)
[2022-03-28 07:20] LABS: SLIDE REVIEW VERIFIED
[2022-03-28 07:22] LABS: Anion Gap 16 (12-20); Blood Urea Nitrogen 13 mg/dL (9-16); Calcium 9.1 mg/dL (8.4-10.2); Carbon Dioxide 25 mmol/L (22-29); Chloride 100 mmol/L (96-108); Creatinine Clr Calc Pharmacy 90.3; Estimated Glomerular Filt Rate > 60; Glucose Random 174 mg/dL (60-115); Potassium 4.5 mmol/L (3.3-5.1); Sodium 136 mmol/L (135-145)
[2022-03-28] MEDS: Pregabalin 75 MG CAPSULE 225 MG PO ×2 (09:01→20:58)
[2022-03-28] MEDS: FLUoxetine HCl 20 MG CAPSULE PO (09:01)
[2022-03-28] MEDS: Multivitamin TABLET 1 TAB PO (09:01)
[2022-03-28] MEDS: oxyCODONE HCl Immed Release 15 MG TABLET PO (09:04)
--- NOTE | 2022-03-28 13:04 | PM.CNPUL ---
History of Present Illness History of Present Illness Consult date: 03/28/22 Chief complaint: Hypoxic resp failure, PNA Narrative: 62-year-old lady, recent approximately 20 pack-year smoker, with underlying history of basal cell carcinoma under dermatology care, anxiety, and depression admitted on 03/27/2022 with approximately 2 week history of dyspnea and fevers that initially started with what appears to have been an upper respiratory viral infection around [place] 2022. Patient with vaccine an waning symptom over the last four days with progressively worsening dyspnea and development of productive cough. On ER evaluation significantly hypoxic now requiring 4 to 6 L of supplemental oxygen to maintain normal oximetry. Started on coverage for or community-acquired pneumonia. CT chest with demonstration of large right-sided loculated pleural effusion. Review of Systems Constitutional: Constitutional: Denies daytime sleepiness, Denies excessive sweating, Denies fatigue, Denies fever(s), Denies lethargy, Reports malaise, Denies night sweats, Denies snoring and Denies weight loss Eyes: Eyes: Denies blurry vision and Denies itchy eyes ENT: Denies nasal congestion, Denies post nasal drip, Denies sinus pain, Denies sinus pressure and Denies other ( Thrush) Cardiovascular: Cardiovascular: Denies chest pain, Denies pedal edema, Reports dyspnea, Denies orthopnea, Denies paroxysmal nocturnal dyspnea and Reports other ( Right-sided chest discomfort) Respiratory: Respiratory: Reports cough, Denies hemoptysis, Reports excessive phlegm production, Reports dyspnea, Denies snoring and Denies wheezing Gastrointestinal: Gastrointestinal: Denies abdominal pain and Denies heartburn Musculoskeletal: Musculoskeletal: Denies myalgias, Denies arthralgias and Denies joint swelling Integumentary/Breasts: Skin/Breast: Denies rash Neurologic: Denies memory loss and Denies seizure-like activity Psychiatric: Psychiatric: Denies abnormal sleep pattern, Denies anxiety and Denies memory loss Endocrine: Endocrine: Denies excessive sweating, Denies fatigue and Denies heat intolerance Hematologic/Lymphatic: Hematologic/Lymphatic: Denies easy bruising Allergic/Immunologic: Allergic/Immunologic: Denies itchy eyes, Denies seasonal rhinorrhea and Denies wheezing PMFSH Past Medical History Medical History Anxiety Basal cell carcinoma Depression DJD (degenerative joint disease) Family History Family History Father Cancer Mother HTN (hypertension) Social History Social History Smoked in Last 30 Days: No Use of substances other than those prescribed or required for medical reasons: No Advance Directives: No Advance Directives Information Provided: No Patient : No Meds Allergies Allergy/AdvReac Type Severity Reaction Status Date / Time sulfamethoxazole Allergy Unknown unknown Verified 03/27/22 14:42 Active Medications: Current Medications Acetaminophen (Acetaminophen 325 Mg Tablet) 650 mg PO Q6H PRN PRN Reason: Pain, Mild (Pain Scale 1-3) Azithromycin (Azithromycin 500 Mg Tablet) 500 mg PO Q24H [facility] Albuterol Sulfate 2.5 mg/ (Ipratropium [place] 0.5 mg) 0 mg INHALE RQ4H WHILE AWAKE [facility] Last Admin: 03/28/22 11:27 Dose: 1 each Albuterol Sulfate 2.5 mg/ (Ipratropium [place] 0.5 mg) 0 mg INHALE Q2H PRN PRN Reason: Shortness of Breath/Wheezing Last Admin: 03/28/22 03:47 Dose: 2.5 each Docusate Sodium (Docusate Sodium 100 Mg Capsule) 100 mg PO DAILY PRN PRN Reason: Constipation Enoxaparin Sodium (Enoxaparin Sodium 40 Mg/0.4 Ml Syringe) 40 mg SUBCUT Q24H [facility] Last Admin: 03/27/22 23:00 Dose: 40 mg Fluoxetine HCl (Fluoxetine Hcl 20 Mg Capsule) 20 mg PO DAILY [facility] Last Admin: 03/28/22 09:01 Dose: 20 mg Methylprednisolone Sodium Succinate (Methylprednisolone Sod Succ 40 Mg/Ml Vial) 40 mg IVPUSH BID [facility] Last Admin: 03/28/22 09:01 Dose: 40 mg Multivitamins/Vitamin C (Multivitamin Tablet) 1 tab PO DAILY [facility] Last Admin: 03/28/22 09:01 Dose: 1 tab Ondansetron HCl (Ondansetron Hcl 4 Mg/2 Ml Vial) 4 mg IVPUSH Q8H PRN PRN Reason: Nausea and Vomiting Oxycodone HCl (Oxycodone Hcl Immed Release 15 Mg Tablet) 15 mg PO Q6H PRN PRN Reason: severe pain Last Admin: 03/28/22 09:04 Dose: 15 mg Pharmacy Consult (Consult Rx Perform Med Rec) 1 each MISCELLANE ONCE PRN PRN Reason: Consult order Pharmacy Consult (Consult Rx Vancomycin Dosing) 1 each MISCELLANE DAILY PRN PRN Reason: Consult order Pregabalin (Pregabalin 75 Mg Capsule) 225 mg PO BID [facility] Last Admin: 03/28/22 09:01 Dose: 225 mg Sodium Chloride (0.9 % Sodium Chloride Flush 3 Ml Syringe) 3 ml IVFLUSH QSHIFT [facility] Last Admin: 03/28/22 08:00 Dose: 3 ml Home Medications Medication Instructions Recorded Confirmed Last Taken Type apple cider vinegar 300 mg tablet 300 mg PO DAILY 03/27/22 03/27/22 Unknown History claudia (Zingiber officinalis) 250 250 mg PO DAILY 03/27/22 03/27/22 Unknown History mg capsule (claudia extract) multivitamin 1 tab PO DAILY 03/27/22 03/27/22 Unknown History oxycodone 15 mg tablet 1 tab PO Q6H PRN severe pain 03/27/22 03/27/22 Unknown History pregabalin 225 mg capsule 1 cap PO BID 03/27/22 03/27/22 Unknown History turmeric root extract 500 mg 500 mg PO DAILY 03/27/22 03/27/22 Unknown History capsule Physical Exam Vital Signs: Vital Signs: Last Vital Signs Temp 97.9 F 03/28/22 09:07 Pulse 95 03/28/22 09:07 Resp 22 H 03/28/22 11:29 BP 124/69 03/28/22 09:07 Pulse Ox 96 03/28/22 09:07 O2 Del Method 03/28/22 09:07 O2 Flow Rate 5 03/28/22 09:07 BMI result Body Mass Index 25.0 Const: General: no acute distress and alert Nutritional Appearance: not obese Orientation/consciousness: Other orientation findings ( oriented) HEENT: Head: Yes atraumatic Mouth: no other ( thrush) Throat: No postnasal drainage Eyes: General: appearance normal, both eyes and all related structures Sclerae: sclerae normal EOM: EOMs intact bilaterally Neck: Neck: Yes supple Lymphatic: no lymphadenopathy noted Resp: Effort & Inspection: normal respiratory effort and no use of accessory muscles Auscultation: other ( crackles and poor air movement on the right) Cardio: Rate: regular rate Rhythm: regular rhythm Heart sounds: no gallops, no murmurs and no rubs GI: Palpation (GI): Soft to palpation and Other GI palpation findings present ( nontender) Skin: General skin exam: other ( warm) Rashes: no rashes Extrem: General: No clubbing, No cyanosis and No edema Results Laboratory Findings 03/28/22 06:30 03/28/22 06:30 ABG, PT/INR, D-dimer: PT/INR, D-dimer PT 15.9 SEC (10.0-13.1) H 03/27/22 18:54 INR 1.4 (0.9-1.1) H 03/27/22 18:54 Abnormal lab findings: Abnormal Labs 03/27/22 03/27/22 03/27/22 18:54 18:54 18:54 WBC 35.7 H* RBC Hct Plt Count 653 H MPV 8.9 L Immature Gran % (Auto) 0.9 H Neut % (Auto) 91.3 H Lymph % (Auto) 3.6 L Lymph # (Auto) Riley # (Auto) 1.4 H Abs Immat Gran (auto) 0.31 H Absolute Neuts (auto) 32.6 H PT 15.9 H INR 1.4 H Sodium 133 L BUN 17 H Random Glucose 188 H Alkaline Phosphatase 132 H 03/28/22 03/28/22 06:30 06:30 WBC 38.9 H* RBC 4.14 L Hct 35.8 L Plt Count 596 H MPV 9.0 L Immature Gran % (Auto) 1.8 H Neut % (Auto) 93.0 H Lymph % (Auto) 2.3 L Lymph # (Auto) 0.9 L Riley # (Auto) Abs Immat Gran (auto) 0.71 H Absolute Neuts (auto) 36.2 H PT INR Sodium BUN Random Glucose 174 H Alkaline Phosphatase Assessment and Plan (1) Loculated pleural effusion: Status: Acute (2) Bacterial pneumonia: Status: Acute Plan Impression: Likely bacterial superinfection of initial viral pneumonia with formation of right-sided loculated pleural effusion. Suspicion for staphylococcal pneumonia. Recommendation: Add vancomycin until cultures are pending, continue ceftriaxone. CT surgery evaluation for decortication (mechanical versus chemical), if unavailable today, placement of right-sided chest tube for chemical decortication by Interventional Radiology. Recommendations discussed with Dr. Goodwin. Time Spent With Patient Time: Total time managing care of this patient today ____ minutes. Procedures Date of Service Date of Service: 03/28/22
--- NOTE | 2022-03-28 13:46 | P.CONGS_ITS ---
History of Present Illness Consult details Consult date: 03/28/22 Reason for consult: other (right pleural effusion) Narrative: Patient is a 62 year old female who presented to the Emergency Department today with complaints of shortness of breath, right sided chest pain, cough, and significant fatigue. Patient states she has also felt feverish and has had soaking sweats at night recently. States she has felt sick for several weeks now beginning towards the end of February which she figured was due to a head cold characterized by cough and congestion. States the she was unable to do much because of her symptoms. Her symptoms continued but did not get worse until this past weekend. States this when she got home from work Sunday night she was extremely fatigued and when she woke up Sunday she was barely able to get out of bed. She experienced increasing shortness of breath and then right sided posterior chest wall pain which led her to seek help at the ER. While in the ER the patient had bloodwork done that showed a leukocytosis of 38 and a thrombocytosis. She has a CT chest done which shows a large loculated r ight pleural effusion with associated atelectasis, as well as some opacities in the left lung indicating an inflammatory condition. Due to these findings Thoracic Surgery was consulted for management. Review of Systems Constitutional: Constitutional: Denies body ache(s), Denies chills, Reports daytime sleepiness, Reports fatigue, Reports fever(s), Reports headache(s), Reports night sweats and Reports weakness Eyes: Eyes: Reports blurry vision and Denies loss of vision ENT: Denies dizziness, Reports headache(s), Reports hoarseness, Reports nasal congestion, Denies neck pain, Denies odynophagia, Denies sore throat, Denies throat swelling and Denies tongue swelling Cardiovascular: Cardiovascular: Denies chest pain, Denies edema, Denies irregular heart rhythm, Denies lightheadedness, Reports palpitations, Reports dyspnea and Reports dyspnea on exertion Respiratory: Respiratory: Reports chest congestion, Reports cough, Denies hemoptysis, Reports pain on inspiration, Reports pain with cough, Reports dyspnea, Reports dyspnea on exertion and Denies wheezing Gastrointestinal: Gastrointestinal: Reports melena, Reports hematochezia, Denies change in bowel habits and Denies odynophagia Genitourinary: Genitourinary: Denies urinary incontinence Musculoskeletal: Musculoskeletal: Reports back pain (chronic low back pain sciatica ), Reports muscle cramps and Denies neck pain Neurologic: Denies dizziness, Reports headache(s), Denies loss of vision and Reports weakness Endocrine: Endocrine: Reports fatigue and Reports palpitations Hematologic/Lymphatic: Hematologic/Lymphatic: Denies easy bleeding and Denies easy bruising Allergic/Immunologic: Allergic/Immunologic: Denies throat swelling, Denies tongue swelling and Denies wheezing PMFSH Past Medical History Medical History (Updated 03/28/22 @ 14:51 by Gen Goodwin MD) Anxiety Basal cell carcinoma Depression DJD (degenerative joint disease) Family History Family History Father Cancer Mother HTN (hypertension) Surgical History Surgical History (Updated 03/28/22 @ 13:47 by Marley Le PA-C) History of basal cell carcinoma excision Social History Social History service: No Current occupational status: employed Narrative Narrative: Quit smoking cigarettes in February 2022, prior to that she averaged 1ppd since age 22 (although started socially smoking age 15). Denies any daily alcohol use, but does have a glass of wine occasionally. Denies illicit drug use - patient states she has a pain contract for chronic opiates with [facility]. Meds Allergies Allergy/AdvReac Type Severity Reaction Status Date / Time sulfamethoxazole Allergy Intermediate Rash Verified 03/28/22 16:52 Active Medications: Current Medications Acetaminophen (Acetaminophen 325 Mg Tablet) 650 mg PO Q6H PRN PRN Reason: Pain, Mild (Pain Scale 1-3) Azithromycin (Azithromycin 500 Mg Tablet) 500 mg PO Q24H [facility] Albuterol Sulfate 2.5 mg/ (Ipratropium [place] 0.5 mg) 0 mg INHALE RQ4H WHILE AWAKE [facility] Last Admin: 03/28/22 11:27 Dose: 1 each Albuterol Sulfate 2.5 mg/ (Ipratropium [place] 0.5 mg) 0 mg INHALE Q2H PRN PRN Reason: Shortness of Breath/Wheezing Last Admin: 03/28/22 03:47 Dose: 2.5 each Docusate Sodium (Docusate Sodium 100 Mg Capsule) 100 mg PO DAILY PRN PRN Reason: Constipation Enoxaparin Sodium (Enoxaparin Sodium 40 Mg/0.4 Ml Syringe) 40 mg SUBCUT Q24H [facility] Last Admin: 03/27/22 23:00 Dose: 40 mg Fluoxetine HCl (Fluoxetine Hcl 20 Mg Capsule) 20 mg PO DAILY [facility] Last Admin: 03/28/22 09:01 Dose: 20 mg Vancomycin HCl 2,000 mg/ (Sodium Chloride) 540 mls @ 270 mls/hr IV ONCE ONE Stop: 03/28/22 15:02 Last Admin: 03/28/22 13:35 Dose: 270 mls/hr Methylprednisolone Sodium Succinate (Methylprednisolone Sod Succ 40 Mg/Ml Vial) 40 mg IVPUSH BID [facility] Last Admin: 03/28/22 09:01 Dose: 40 mg Multivitamins/Vitamin C (Multivitamin Tablet) 1 tab PO DAILY [facility] Last Admin: 03/28/22 09:01 Dose: 1 tab Ondansetron HCl (Ondansetron Hcl 4 Mg/2 Ml Vial) 4 mg IVPUSH Q8H PRN PRN Reason: Nausea and Vomiting Oxycodone HCl (Oxycodone Hcl Immed Release 15 Mg Tablet) 15 mg PO Q6H PRN PRN Reason: severe pain Last Admin: 03/28/22 09:04 Dose: 15 mg Pharmacy Consult (Consult Rx Perform Med Rec) 1 each MISCELLANE ONCE PRN PRN Reason: Consult order Pharmacy Consult (Consult Rx Vancomycin Dosing) 1 each MISCELLANE DAILY PRN PRN Reason: Consult order Pregabalin (Pregabalin 75 Mg Capsule) 225 mg PO BID [facility] Last Admin: 03/28/22 09:01 Dose: 225 mg Sodium Chloride (0.9 % Sodium Chloride Flush 3 Ml Syringe) 3 ml IVFLUSH QSHIFT [facility] Last Admin: 03/28/22 08:00 Dose: 3 ml Home Medications Medication Instructions Recorded Confirmed Last Taken Type apple cider vinegar 300 mg tablet 300 mg PO DAILY 03/27/22 03/27/22 Unknown History claudia (Zingiber officinalis) 250 250 mg PO DAILY 03/27/22 03/27/22 Unknown History mg capsule (claudia extract) multivitamin 1 tab PO DAILY 03/27/22 03/27/22 Unknown History oxycodone 15 mg tablet 1 tab PO Q6H PRN severe pain 03/27/22 03/27/22 Unknown History pregabalin 225 mg capsule 1 cap PO BID 03/27/22 03/27/22 Unknown History turmeric root extract 500 mg 500 mg PO DAILY 03/27/22 03/27/22 Unknown History capsule Physical Exam Vital Signs: Vital Signs: Last Vital Signs Temp 97.9 F 03/28/22 09:07 Pulse 95 03/28/22 09:07 Resp 22 H 03/28/22 11:29 BP 124/69 03/28/22 09:07 Pulse Ox 96 03/28/22 09:07 O2 Del Method 03/28/22 09:07 O2 Flow Rate 5 03/28/22 09:07 BMI result Body Mass Index 25.0 General: No acute distress, resting comfortably in bed, well developed Head: Normocephalic, atraumatic, symmetric Eyes: Sclera anicteric, eyelids without edema or erythema, +EOMS intact ENT: Oral mucosa and tongue are moist Neck: Soft, supple, symmetric, trachea midline, no crepitus, no mass visualized or palpated Cardiovascular: Regular rate and rhythm, no murmur/rubs/gallops, BUE and BLE without edema, no calf tenderness bilaterally Respiratory: Left lung CTA. Right BS absent at base to about mid-chest, then diminished to the apex. Breathing nonlabored, speaking in full sentences, on oxygen via nasal cannula. No use of accessory muscles. No obvious chest wall trauma. Gastrointestinal: Soft, non-tender, non-distended, +normoactive bowel sounds. Skin: Warm and dry throughout, no rashes Lymphatic: no cervical, supraclavicular, infraclavicular lymphadenopathy noted Neurological: Alert and oriented x 3, no focal neurological deficit noted Psychiatric: No agitation, appropriate affect Results Labs 03/28/22 06:30 03/28/22 06:30 Labs: Abnormal lab results 03/27/22 03/27/22 03/27/22 Range/Units 18:54 18:54 18:54 WBC 35.7 H* (4.8-10.8) X10*3/uL RBC (4.20-5.50) X10*6/uL Hct (37.0-47.0) % Plt Count 653 H (160-400) X10*3/uL MPV 8.9 L (9.4-12.3) fL Immature Gran % (Auto) 0.9 H (0.0-0.4) % Neut % (Auto) 91.3 H (45-73) % Lymph % (Auto) 3.6 L (20-40) % Lymph # (Auto) (1.2-4.9) X10*3/uL [place] # (Auto) 1.4 H (0.1-1.2) X10*3/uL Abs Immat Gran (auto) 0.31 H (0.00-0.03) X10*3/uL Absolute Neuts (auto) 32.6 H (2.0-8.3) x10*3/uL PT 15.9 H (10.0-13.1) SEC INR 1.4 H (0.9-1.1) Sodium 133 L (135-145) mmol/L BUN 17 H (9-16) mg/dL Random Glucose 188 H (60-115) mg/dL Alkaline Phosphatase 132 H (39-117) U/L 03/28/22 03/28/22 Range/Units 06:30 06:30 WBC 38.9 H* (4.8-10.8) X10*3/uL RBC 4.14 L (4.20-5.50) X10*6/uL Hct 35.8 L (37.0-47.0) % Plt Count 596 H (160-400) X10*3/uL MPV 9.0 L (9.4-12.3) fL Immature Gran % (Auto) 1.8 H (0.0-0.4) % Neut % (Auto) 93.0 H (45-73) % Lymph % (Auto) 2.3 L (20-40) % Lymph # (Auto) 0.9 L (1.2-4.9) X10*3/uL [place] # (Auto) (0.1-1.2) X10*3/uL Abs Immat Gran (auto) 0.71 H (0.00-0.03) X10*3/uL Absolute Neuts (auto) 36.2 H (2.0-8.3) x10*3/uL PT (10.0-13.1) SEC INR (0.9-1.1) Sodium (135-145) mmol/L BUN (9-16) mg/dL Random Glucose 174 H (60-115) mg/dL Alkaline Phosphatase (39-117) U/L Short CBC 03/27/22 03/28/22 Range/Units 18:54 06:30 WBC 35.7 H* 38.9 H* (4.8-10.8) X10*3/uL Hgb 12.1 12.0 (12.0-16.0) g/dl Hct 37.4 35.8 L (37.0-47.0) % Plt Count 653 H 596 H (160-400) X10*3/uL BMP 03/27/22 03/28/22 18:54 06:30 Sodium 133 L 136 Potassium 3.8 4.5 Chloride 98 100 Carbon Dioxide 22 25 BUN 17 H 13 Creatinine 0.69 0.66 Calcium 9.0 9.1 Liver Function 03/27/22 Range/Units 18:54 Total Bilirubin 0.3 (0.0-1.0) mg/dL Direct Bilirubin 0.2 (0.0-0.5) mg/dL AST 7 (5-31) U/L ALT 7 (0-31) U/L Alkaline Phosphatase 132 H (39-117) U/L Albumin 4.0 (3.5-5.0) g/dL Impressions Chest CT 03/28/22 11:02 IMPRESSION: 1. Large loculated right pleural effusion with right lower lobe collapse. 2. There is platelike atelectasis left lung base. 3. There are patchy peripheral-based groundglass opacity in the lingula and left upper lobe, suspicious for developing infiltrates. 4. No abnormal mediastinal or axillary lymph nodes seen. Fleischner guidelines were followed. Imaging CT scan - chest: report reviewed and image reviewed Assessment and Plan (1) Loculated pleural effusion: Status: Acute Ms. Hyde is a 62 year old female who has had progressively worsening shortness of breath, fatigue, and cough as well as new right posterior chest wall pain after feeling sick for several weeks. CT chest shows large loculated right pleural effusion. * Loculated right pleural effusion in association with her leukocytosis and history is concerning for empyema or complex parapneumonic effusion. * Recommend IR placement of pigtail chest tube today (as large of a tube that they have to facilitate drainage, 14Fr ideal). Once chest tube placed recommend it stay to -20 continuous suction and monitor fluid output overnight. * Send pleural fluid studies for routine studies + culture. * Will reassess patient with CXR tomorrow morning. If no significant improvement after chest tube placement, will plan for surgical decortication. * Patient on OR schedule for tomorrow @ 2:30pm. * Patient should be OOB ambulating at least 3-4 times daily. * Should be OOB to chair for all meals. * Pulmonary toilet: IS, flutter valve, ambulation. * Antibiotics per primary team. Currently on azithromycin and vanco IV. Cultures to be taken and cater to specific organism if possible. Preop checklist: * NPO except meds after MN * Labs as above. INR done. PTT ordered for the morning. * Type and screen ordered for tomorrow morning. * Abx: patient on azithromycin and vanco IV ATC. Will add Ancef 2g IV x 1 OCTOR[address] Case discussed with Dr. Monterroso. Thank you for the consultation. (2) Acute respiratory failure with hypoxia: Status: Acute (3) Pneumonia: Status: Acute (4) Sepsis: Status: Acute Time Spent With Patient Time: Total time managing care of this patient today ____ minutes. Procedures Date of Service Date of Service: 03/28/22
--- NOTE | 2022-03-28 14:24 | MHC.CM.PN ---
Met with patient and daughter, Diana in regards to discharge planning. Patient lives alone, ambulates independently and had no services prior to coming to the hospital. Patient is currently on oxygen at [facility] but not at baseline. PCP verified as Dr Keene. Patient received 4 Pfizer vaccines. Patient denies having a HCP. Information provided. Patient not interested in completing one at this time. No services anticipated to be needed at d/c because patient is not homebound. Diana will transport patient home when medically stable. Continue to monitor for d/c needs.
--- NOTE | 2022-03-28 14:27 | HO.PM.IMPN ---
Subjective Subjective Date of Service: 03/28/22 Interval History: Follow-up for acute hypoxemic respiratory failure secondary to pneumonia, sepsis, loculated pleural effusion. Review of Systems Patient is significantly short of breath with minimal exertion, talking in short sentences Has cough dry mostly. has tachycardia/tachypnea. Denies any nausea vomiting or abdominal pain , low-grade fever. Physical Exam Vital Signs: Vital Signs: Last Vital Signs Temp 98.6 F 03/28/22 14:02 Pulse 99 03/28/22 14:02 Resp 28 H 03/28/22 14:02 BP 155/86 H 03/28/22 14:02 Pulse Ox 93 03/28/22 14:02 O2 Del Method 03/28/22 14:02 O2 Flow Rate 5 03/28/22 14:02 BMI result Body Mass Index 25.0 Appearance: Alert.? Oriented X3.?sob at rest cvs: rrr, [id number] res: air entry diminshed righT>left , few rhonchii abd: no rebound or guarding ,nt, bs present. ext pulses present , no cyanosis. neuro: axo3 , nonfocal. Objective Data Active Medications Acetaminophen (Acetaminophen 325 Mg Tablet) 650 mg PO Q6H PRN PRN Reason: Pain, Mild (Pain Scale 1-3) Azithromycin (Azithromycin 500 Mg Tablet) 500 mg PO Q24H [facility] Albuterol Sulfate 2.5 mg/ (Ipratropium [place] 0.5 mg) 0 mg INHALE RQ4H WHILE AWAKE [facility] Last Admin: 03/28/22 11:27 Dose: 1 each Documented By: NANCIE Albuterol Sulfate 2.5 mg/ (Ipratropium [place] 0.5 mg) 0 mg INHALE Q2H PRN PRN Reason: Shortness of Breath/Wheezing Last Admin: 03/28/22 03:47 Dose: 2.5 each Documented By: ELOINA Docusate Sodium (Docusate Sodium 100 Mg Capsule) 100 mg PO DAILY PRN PRN Reason: Constipation Enoxaparin Sodium (Enoxaparin Sodium 40 Mg/0.4 Ml Syringe) 40 mg SUBCUT Q24H [facility] Last Admin: 03/27/22 23:00 Dose: 40 mg Documented By: CORINNE Fluoxetine HCl (Fluoxetine Hcl 20 Mg Capsule) 20 mg PO DAILY [facility] Last Admin: 03/28/22 09:01 Dose: 20 mg Documented By: ANDREY Vancomycin HCl 2,000 mg/ (Sodium Chloride) 540 mls @ 270 mls/hr IV ONCE ONE Stop: 03/28/22 15:02 Last Admin: 03/28/22 13:35 Dose: 270 mls/hr Documented By: ANDREY Methylprednisolone Sodium Succinate (Methylprednisolone Sod Succ 40 Mg/Ml Vial) 40 mg IVPUSH BID [facility] Last Admin: 03/28/22 09:01 Dose: 40 mg Documented By: ANDREY Multivitamins/Vitamin C (Multivitamin Tablet) 1 tab PO DAILY [facility] Last Admin: 03/28/22 09:01 Dose: 1 tab Documented By: ANDREY Ondansetron HCl (Ondansetron Hcl 4 Mg/2 Ml Vial) 4 mg IVPUSH Q8H PRN PRN Reason: Nausea and Vomiting Oxycodone HCl (Oxycodone Hcl Immed Release 15 Mg Tablet) 15 mg PO Q6H PRN PRN Reason: severe pain Last Admin: 03/28/22 09:04 Dose: 15 mg Documented By: ANDREY Pharmacy Consult (Consult Rx Perform Med Rec) 1 each MISCELLANE ONCE PRN PRN Reason: Consult order Pharmacy Consult (Consult Rx Vancomycin Dosing) 1 each MISCELLANE DAILY PRN PRN Reason: Consult order Pregabalin (Pregabalin 75 Mg Capsule) 225 mg PO BID [facility] Last Admin: 03/28/22 09:01 Dose: 225 mg Documented By: ANDREY Sodium Chloride (0.9 % Sodium Chloride Flush 3 Ml Syringe) 3 ml IVFLUSH QSHIFT [facility] Last Admin: 03/28/22 08:00 Dose: 3 ml Documented By: ANDREY Labs 03/28/22 06:30 03/28/22 06:30 Labs: Laboratory Results - last 24 hr 03/27/22 03/27/22 03/27/22 18:54 18:54 18:54 MCV 86.0 MCH 27.8 MCHC 32.4 RDW 13.1 Plt Count 653 H MPV 8.9 L Immature Gran % (Auto) 0.9 H Neut % (Auto) 91.3 H Lymph % (Auto) 3.6 L [place] % (Auto) 4.0 Eos % (Auto) 0.0 Baso % (Auto) 0.2 Lymph # (Auto) 1.3 [place] # (Auto) 1.4 H Eos # (Auto) 0.0 Baso # (Auto) 0.1 Abs Immat Gran (auto) 0.31 H Absolute Neuts (auto) 32.6 H Absolute Nucleated RBC 0.000 Nucleated RBC % (auto) 0.0 Smear Tech's Comments VERIFIED Smear Path Review SEE NOTE PT INR Anion Gap 17 Estim Creat Clear Calc 86.4 Estimated GFR > 60 Random Glucose 188 H Lactic Acid 1.5 Calcium 9.0 Magnesium 1.9 Total Bilirubin 0.3 Direct Bilirubin 0.2 AST 7 ALT 7 Alkaline Phosphatase 132 H Troponin I High Sens B-Natriuretic Peptide Total Protein 6.7 Albumin 4.0 Influenza Type A (PCR) Influenza Type B (PCR) RSV RNA Qual (PCR) SARS-CoV-2 RNA (RT-PCR) 03/27/22 03/27/22 03/27/22 18:54 18:54 18:54 MCV MCH MCHC RDW Plt Count MPV Immature Gran % (Auto) Neut % (Auto) Lymph % (Auto) [place] % (Auto) Eos % (Auto) Baso % (Auto) Lymph # (Auto) [place] # (Auto) Eos # (Auto) Baso # (Auto) Abs Immat Gran (auto) Absolute Neuts (auto) Absolute Nucleated RBC Nucleated RBC % (auto) Smear Tech's Comments Smear Path Review PT 15.9 H INR 1.4 H Anion Gap Estim Creat Clear Calc Estimated GFR Random Glucose Lactic Acid Calcium Magnesium Total Bilirubin Direct Bilirubin AST ALT Alkaline Phosphatase Troponin I High Sens < 3.5 B-Natriuretic Peptide Total Protein Albumin Influenza Type A (PCR) NEGATIVE Influenza Type B (PCR) NEGATIVE RSV RNA Qual (PCR) NEGATIVE SARS-CoV-2 RNA (RT-PCR) NEGATIVE 03/27/22 03/28/22 03/28/22 18:54 06:30 06:30 MCV 86.5 MCH 29.0 MCHC 33.5 RDW 13.3 Plt Count 596 H MPV 9.0 L Immature Gran % (Auto) 1.8 H Neut % (Auto) 93.0 H Lymph % (Auto) 2.3 L [place] % (Auto) 2.4 Eos % (Auto) 0.2 Baso % (Auto) 0.3 Lymph # (Auto) 0.9 L [place] # (Auto) 1.0 Eos # (Auto) 0.1 Baso # (Auto) 0.1 Abs Immat Gran (auto) 0.71 H Absolute Neuts (auto) 36.2 H Absolute Nucleated RBC 0.000 Nucleated RBC % (auto) 0.0 Smear Tech's Comments VERIFIED Smear Path Review PT INR Anion Gap 16 Estim Creat Clear Calc 90.3 Estimated GFR > 60 Random Glucose 174 H Lactic Acid Calcium 9.1 Magnesium Total Bilirubin Direct Bilirubin AST ALT Alkaline Phosphatase Troponin I High Sens B-Natriuretic Peptide 30 Total Protein Albumin Influenza Type A (PCR) Influenza Type B (PCR) RSV RNA Qual (PCR) SARS-CoV-2 RNA (RT-PCR) Assessment and Plan (1) Loculated pleural effusion: Status: Acute (2) Bacterial pneumonia: Status: Acute (3) Acute respiratory failure with hypoxia: Status: Acute (4) Pneumonia: Status: Acute (5) Personal history of nicotine dependence: Status: Acute (6) Sepsis: Status: Acute Plan 62-year-old female with past medical history of depression anxiety presents the hospital with acute respiratory failure found to have pneumonia # acute? hypoxic respiratory failure sce to sepsis(POA),pneumonia .ct hsows -loculated pleural effusion -? oxygen dropping to 90? at rest, becoming dyspneic on minimal execerion ,even at rest Lactic acid is normal, sepsis exam completed . continue vancomycin,? continue O2, pulm -recommended drainage and chest tube placement Discussed with the says thoracic surgery: Recommended the same through IR guided drainage and chest tube placement. npo #? community-acquired pneumonia -? likely superimposed given recent viral infection -? with she with IV antibiotics -? follow cultures ?DVT prophylaxis: hold Lovenox Inpatient need: Acute hypoxemic respiratory failure secondary to sepsis/pneumonia, loculated effusion need drainage and IV antibiotics, vanco trough monitoring as well as renal function and electrolytes monitoring. ? Time Spent With Patient Time: Total time managing care of this patient today ____ minutes. Quality Stroke Does the patient have a stroke diagnosis?: No VTE Prior VTE?: No VTE Risk Level:: Medical - moderate - high VTE Device Contraindication: Treatment Not Indicated VTE Drug Contraindication: N/A - Med Ordered
--- NOTE | 2022-03-28 14:32 | PHA.PROG ---
Admission Date/Time: March 27, 2022 22:23 Indication: Respiratory Weight in k.843 kg Adjusted body weight in Kg: [place] body weight in Kg: Obesity Dosing Indication % IBW: Serum Creatinine - Last 168 Hours 03/27/22 03/28/22 18:54 06:30 Creatinine 0.69 0.66 Estimated CrCl and GFR - Last 168 Hours 03/27/22 03/28/22 18:54 06:30 Estim Creat Clear Calc 86.4 90.3 Estimated GFR > 60 > 60 Vancomycin Loading Dose: 2000mg X 1 Current Vancomycin Dosing Regimen: 1000mg Q12H Vancomycin Monitoring using AUC goal of 400 - 600 range with trough as surrogate marker: 489mg/L Date and Time for next Vancomycin Level to be drawn: 03/29/22 @2100 Pharmacist Comments on Vancomycin Plan: Vancomycin dosing will take advantage of [employer] as a clinical decision support tool that uses Bayesian modeling to calculate individual patient's pharmacokinetic parameters and forecast the patient's drug concentration time course with the target goal AUC 24 range of 400 - 600 mg/L/hr.
[2022-03-28 14:34] LABS: Lactate Dehydrogenase 186 U/L (122-220); Total Protein 6.7 g/dL (6.5-8.0)
[2022-03-28] MEDS: fentaNYL citrate/PF 100 MCG/2 ML VIAL 25 MCG IVPUSH (16:30)
[2022-03-28] MEDS: fentaNYL citrate/PF 100 MCG/2 ML VIAL 50 MCG IVPUSH ×5 (16:30→23:56)
--- NOTE | 2022-03-28 17:05 | W.PM.CCHP ---
Procedures Date of Service Date of Service: 03/28/22 Chest Tube Chest Tube 1: Progress: After obtaining informed consent and performing time-out, position for the right mid-axillary chest tube was verified with bedside ultrasound and marked. Thereafter 28 Portuguese chest tube placed utilizing Seldinger technique with no immediate complications and with initial drainage of approximately 800 cc of straw-colored fluid. Fluid sample collected and sent for testing. Chest tube position verified with chest x-ray. Patient tolerated procedure well.
--- NOTE | 2022-03-28 17:10 | P.PNCC_ITS ---
Critical Care Event Note Summary Date of Service: 03/28/22 Code activated: No Narrative: Patient seen earlier today in pulmonary consultation and placement of large-bore chest tube for large loculated parapneumonic effusion was recommended. Thoracic surgery and interventional radiology unable to place large-bore chest tube at this time. Patient transferred to intensive care unit for placement of 28 [place] chest tube at the bedside. Patient tolerated procedure well. Fluid sample sent for testing. Patient will be monitored in the intensive care unit overnight. Critical Care Time (minutes): 0
[2022-03-28 18:16] LABS: Lactate Dehydrogenase 256 U/L (122-220); Total Protein 6.4 g/dL (6.5-8.0)
--- NOTE | 2022-03-28 18:47 | PC.NURSE ---
Patient arrived to ICU at 1416. Patient visibly SOB- abdominal breathing with RR 20s-30s, SPO2 88-95% on 6 L oxymask. Patient positioned sitting upright on edge of bed with arms on bedside table. Bedside chest tube placed by MD to right mid-axillary region. 75 mcg fentanyl given during procedure. SBP during procedure up to 190s. 975 cc of serosanguineous fluid removed immediately upon chest tube insertion. Chest tube placement verified by CXR- see report. Pleural fluid collected and sent to lab. Patient c/o pain at chest tube insertion site, but reports decrease in SOB. PRN fenatnyl administered per EMAR. Patient is currently resting quietly in bed. Current VS- BP 143/78, HR 99, Spo2 92% on 3L NC, RR 20.
[2022-03-28 18:56] LABS: MN% 17.7 %; PMN% 82.3 %; RBC Pleural Fluid 0.005 X10*3/uL; WBC Pleural Fluid 0.204 X10*3/uL
[2022-03-28 19:38] LABS: BF Shift QC OK YES; Lymphocytes Pleural Fluid 5 %; Monocytes Pleural Fluid 7 %; Neutrophils Pleural Fluid 86 %
[2022-03-28 19:39] LABS: Basophils Pleural Fluid 1 %; Other Cells Plerual Fl 1 %
[2022-03-28 20:29] LABS: pH Pleural Fluid 7.57
[2022-03-28] MEDS: Enoxaparin Sodium 40 MG/0.4 ML SYRINGE SUBCUT (20:57)
[2022-03-28] MEDS: Azithromycin 500 MG TABLET PO (20:58)
[2022-03-28 21:02] LABS: Albumin Pleural Fluid 3.2 GM/DL; Glucose Pleural Fluid 67 MG/DL; LDH Pleural Fluid 1559 U/L; Total Protein Pleural Fluid 5.4 GM/DL
[2022-03-29] VITALS (23 sets, daily range): BP systolic 97–141; BP diastolic 55–86; PULSE 85–107; RESP 18–31; TEMP 35.7–37.1; O2SAT 90–96; BMI 26.5
[2022-03-29] MEDS: vancomycin HCL 1,000 MG in 0.9 % Sodium Chloride 250 ML 270 MG IV ×2 (00:03→12:43)
[2022-03-29] MEDS: Albuterol Sulfate (0.083%) 2.5 MG/3 ML VIAL.NEB INHALE ×2 (00:11→18:25)
--- NOTE | 2022-03-29 03:53 | PC.NURSE ---
CARE ASSUMED 23;15...PATIENT AWAKE..ALERT..ORIENTED X3...O2 3 L/M...LUNGS WITH EXPIRATORY WHEEZES....HARSH COUGH...RIGHT LATERAL CHEST TUBE TO H20 SEAL/GRAVITY DRAINING SEROUS DRAINAGE....C/O CHEST TUBE SITE PAIN WITH COUGH/INSPIRATION...PRN FENTANYL GIVEN WITH IMPROVEMENT PER PATIENT..PRN UPDRAFTS ORDERED/GIVEN PER ICU FRUIT SHIPPER...OOB 1 ASSIST TO BEDSIDE COMMODE TO VOID....NPO AFTER 12AM FOR ?DECORTICATION IN AM...NSR/S.TACH HR 80'S-100'S..OCCASIONAL PAC'S..
[2022-03-29 04:15] LABS: VBG Base Excess 6.2 mmol/L; VBG HCO3 29 mmol/L (22-26); VBG pCO2 37 mmHg; VBG pO2 68 mmHg
[2022-03-29] MEDS: fentaNYL citrate/PF 100 MCG/2 ML VIAL 50 MCG IVPUSH ×5 (04:23→19:48)
[2022-03-29 04:43] LABS: Basophils Absolute Auto 0.1 X10*3/uL (0.0-0.2); Basophils Percent Auto 0.2 % (0-2); Eosinophils Percent Auto 0.1 % (0-4); Hemoglobin 11.3 g/dl (12.0-16.0); Imm Gran Pct Auto 1.7 % (0.0-0.4); Lymphocytes Absolute Auto 1.7 X10*3/uL (1.2-4.9); Lymphocytes Percent Auto 4.3 % (20-40); MANUAL DIFF FLAG SCAN; Mean Corpuscular HGB Conc 33.2 g/dl (31.0-35.0); Mean Corpuscular Hemoglobin 28.6 pg (27.0-33.0); Mean Corpuscular Volume 86.1 fL (80.0-98.0); Mean Platelet Volume 9.2 fL (9.4-12.3); Monocytes Absolute Auto 2.2 X10*3/uL (0.1-1.2); Monocytes Percent Auto 5.4 % (2-11); Neutrophils Absolute Auto 35.4 x10*3/uL (2.0-8.3); Neutrophils Percent Auto 88.3 % (45-73); Platelet Count 561 X10*3/uL (160-400); Red Blood Count 3.95 X10*6/uL (4.20-5.50); Red Cell Distribution Width 13.2 % (11.0-16.0); SCAN SMEAR FLAG 1
[2022-03-29 05:02] LABS: Albumin Level 3.5 g/dL (3.5-5.0); Anion Gap 15 (12-20); Blood Urea Nitrogen 13 mg/dL (9-16); Calcium 9.3 mg/dL (8.4-10.2); Carbon Dioxide 27 mmol/L (22-29); Chloride 98 mmol/L (96-108); Creatinine Clr Calc Pharmacy 112.5; Estimated Glomerular Filt Rate > 60; Glucose Random 139 mg/dL (60-115); Magnesium 2.2 mg/dL (1.6-2.6); Phosphorus 3.1 mg/dL (2.7-4.5); Potassium 4.1 mmol/L (3.3-5.1); Sodium 136 mmol/L (135-145)
[2022-03-29 05:10] LABS: SLIDE REVIEW VERIFIED
[2022-03-29 05:32] LABS: Partial Thromboplastin Time 29.9 SEC (26.0-36.4)
[2022-03-29] MEDS: cefTRIAXone sodium 1 GM in 0.9 % Sodium Chloride 50 ML IV (08:10)
[2022-03-29] MEDS: Multivitamin TABLET 1 TAB PO (08:11)
[2022-03-29] MEDS: Pregabalin 75 MG CAPSULE 225 MG PO ×2 (08:11→22:00)
[2022-03-29] MEDS: 0.9 % Sodium Chloride Flush 3 ML SYRINGE IVFLUSH ×2 (08:22→17:30)
--- NOTE | 2022-03-29 08:48 | P.PNTS_ITS ---
Subjective Subjective Date of Service: 03/29/22 Interval history: Last night a 28Fr chest tube was placed by Dr. Licea and patient has been in ICU on nasal cannula. Chest tube has put out about 900cc cloudy/serous fluid. Studies sent show an exudative effusion. This morning the patient feels ok, but continues to have a very congested cough that she is able to clear somewhat but not produce to visualize. Denies any increasing shortness of breath overnight. Has some pain around the chest tube insertion site. Denies any lightheadedness, dizziness, chills, abdominal pain/distention, LE swelling/pain. Diagnostics: Short CBC 03/29/22 Range/Units 04:13 WBC 40.0 H* (4.8-10.8) X10*3/uL Hgb 11.3 L (12.0-16.0) g/dl Hct 34.0 L (37.0-47.0) % Plt Count 561 H (160-400) X10*3/uL BMP 03/29/22 04:13 Sodium 136 Potassium 4.1 Chloride 98 Carbon Dioxide 27 BUN 13 Creatinine 0.58 Calcium 9.3 Liver Function 03/28/22 03/29/22 Range/Units 14:11 04:13 Albumin 4.0 3.5 (3.5-5.0) g/dL Impressions Chest CT 03/28/22 11:02 IMPRESSION: 1. Large loculated right pleural effusion with right lower lobe collapse. 2. There is platelike atelectasis left lung base. 3. There are patchy peripheral-based groundglass opacity in the lingula and left upper lobe, suspicious for developing infiltrates. 4. No abnormal mediastinal or axillary lymph nodes seen. Fleischner guidelines were followed. Chest X-Ray 03/28/22 17:04 IMPRESSION: Persistent right pleural effusion appears similar if not mildly decreased with right chest tube in place. No overt pneumothorax. Chest X-Ray 03/29/22 04:50 IMPRESSION: Right-sided chest tube remains in place with small right pleural effusion. Similar right mid to lower lung airspace opacity. Physical Exam Vital Signs: Vital Signs: Last Vital Signs Temp 96.2 F L 03/29/22 08:00 Pulse 86 03/29/22 08:00 Resp 22 H 03/29/22 08:00 BP 129/84 03/29/22 08:00 Pulse Ox 93 03/29/22 08:00 O2 Del Method 03/29/22 08:00 O2 Flow Rate 3 03/29/22 08:00 BMI result Body Mass Index 26.5 General: No acute distress, resting comfortably in bed, well developed Head: Normocephalic, atraumatic, symmetric Eyes: Sclera anicteric, eyelids without edema or erythema, +EOMS intact ENT: Oral mucosa and tongue are moist without lesions or exudates Neck: Soft, supple, symmetric, trachea midline, no crepitus Cardiovascular: Regular rate and rhythm, no murmur/rubs/gallops, BUE and BLE without edema, no calf tenderness bilaterally Respiratory: R lung CTA, L decreased at base. Breathing nonlabored, speaking in full sentences, on oxygen via nasal cannula. Congested cough and breathing on exam. No use of accessory muscles. Right chest tube x 1 to [facility] on -20 suction, 900cc serous/cloudy fluid in [facility], no air leak. Gastrointestinal: Soft, non-tender, non-distended, +normoactive bowel sounds. Skin: Warm and dry throughout, no rashes Neurological: Alert and oriented x 3, no focal neurological deficit noted Psychiatric: No agitation, appropriate affect Procedures Date of Service Date of Service: 03/29/22 Progress Note: A&P Assessment and plan (1) Loculated pleural effusion: Status: Acute Assessment and Plan: Ms. Hyde is a 62 year old female who has had progressively worsening shortness of breath, fatigue, and cough as well as new right posterior chest wall pain after feeling sick for several weeks.? CT chest shows large loculated right pleural effusion. s/p 28Fr chest tube placement by Dr. Licea 03/28/2022 Loculated pleural effusion * Pleural fluid studies indicate exudative process. Likely complicated parapneumonic effusion in setting of pneumonia. * Leukocytosis worsened today, now 40k. Hemodynamically stable and no worsening hypoxia overnight. * Continue chest tube to -20 suction and monitor outputs. * Antibiotics per primary team.? Currently on azithromycin, ceftriaxone, and vanco IV.? * Cultures from pleural fluid pending. Gram stain negative so far. * Unfortunately, an emergent case took her spot in the OR today. Patient may eat and then NPO after MN. OR rescheduled for tomorrow @ 1:30pm. * Patient will get a dose of tPA/DNAse today to aide with evacuation of fluid while waiting for OR. Activity/pulmonary toilet * Patient should be OOB ambulating at least 3-4 times daily. * Should be OOB to chair for all meals. * Pulmonary toilet: IS, flutter valve, ambulation. Pain management * Patient states she is on Oxycodone IR 15mg PO q6h (60mg total per day) at home for chronic low back pain/sciatica. * States she has a pain contract with a provider at [facility]. Preop checklist: * NPO except meds after MN * Labs as above.? Full coags done. * Type and screen done. * Abx: patient on azithromycin, ceftriaxone, and vanco IV ATC.? No additional preop abx needed. (2) Acute respiratory failure with hypoxia: Status: Acute (3) Pneumonia: Status: Acute (4) Sepsis: Status: Acute Time Spent With Patient Time: Total time managing care of this patient today ____ minutes. Quality Stroke Does the patient have a stroke diagnosis?: No VTE Prior VTE?: No VTE Risk Level:: Medical - moderate - high VTE Device Contraindication: Treatment Not Indicated VTE Drug Contraindication: N/A - Med Ordered
[2022-03-29 11:53] LABS: Venous Blood Gas Refer to POC result
[2022-03-29] MEDS: Alteplase Cath Clear 10 MG, Dornase Alfa 5 MG, Lidocaine HCl 2 % MPF 10 ML in 0.9 % Sod... 60 MG INTRAPLEUR ×2 (12:53→21:41)
[2022-03-29] MEDS: ceFAZolin Sodium/Dextrose,Iso 2 GM/50 ML PIGGYBACK IV (14:00)
[2022-03-29] MEDS: fentaNYL citrate/NS 1,000 MCG/100 ML PLAST..BAG 7.5 MCG IVCONT (14:36)
--- NOTE | 2022-03-29 15:43 | P.PNCC_ITS ---
Subjective Subjective Date of Service: 03/29/22 Interval History: 62-year-old lady, recent approximately 20 pack-year smoker, with underlying history of basal cell carcinoma under dermatology care, anxiety, and depression admitted on 03/27/2022 with approximately 2 week history of dyspnea and fevers that initially started with what appears to have been an upper respiratory viral infection around [place] 2021. Patient with vaccine an waning symptom over the last four days with progressively worsening dyspnea and development of productive cough. On ER evaluation significantly hypoxic now requiring 4 to 6 L of supplemental oxygen to maintain normal oximetry. Started on coverage for or community-acquired pneumonia. CT chest with demonstration of large right-sided loculated pleural effusion. Transferred to intensive care on 03/28/2022 for placement of 28 [place] over the wire chest tube with drainage of approximately 900 cc of straw-colored fluid and improvement in oxygenation. Evaluated by thoracic surgery and planned for possible decortication on 03/30/2022, started on intrapleural tPA/DNase. Critical Care Time (minutes): 0 Physical Exam Vital Signs: Vital Signs: Last Vital Signs Temp 98.1 F 03/29/22 12:00 Pulse 96 03/29/22 14:00 Resp 31 H 03/29/22 14:00 BP 129/78 03/29/22 14:00 Pulse Ox 93 03/29/22 14:00 O2 Del Method 03/29/22 14:00 O2 Flow Rate 3 03/29/22 14:00 BMI result Body Mass Index 26.5 Const: General: no acute distress, alert and awake Eyes: Sclerae: sclerae normal EOM: EOMs intact bilaterally Neck: Neck: Yes no lymphadenopathy, Yes trachea midline and Yes supple Resp: Effort & Inspection: normal respiratory effort, no respiratory distress and tachypneic Auscultation: other ( decreased air movement at the right base) Cardio: Rate: regular rate Rhythm: regular rhythm Heart sounds: no gallops, no murmurs and no rubs GI: Palpation (GI): Soft to palpation and Other GI palpation findings present ( Nontender) Auscultation: normal bowel sounds Extrem: General: Yes no pedal edema, No clubbing and No cyanosis Objective Data Labs 03/29/22 04:13 03/29/22 04:13 Labs: Laboratory Results - last 24 hr 03/28/22 03/28/22 03/28/22 17:41 18:29 18:30 WBC RBC Hgb Hct MCV MCH MCHC RDW Plt Count MPV Immature Gran % (Auto) Neut % (Auto) Lymph % (Auto) Dawes % (Auto) Eos % (Auto) Baso % (Auto) Lymph # (Auto) Dawes # (Auto) Eos # (Auto) Baso # (Auto) Abs Immat Gran (auto) Absolute Neuts (auto) Absolute Nucleated RBC Nucleated RBC % (auto) Smear Tech's Comments APTT VBG pH VBG pCO2 VBG pO2 VBG HCO3 VBG O2 Saturation VBG Base Excess Sodium Potassium Chloride Carbon Dioxide Anion Gap BUN Creatinine Estim Creat Clear Calc Estimated GFR Random Glucose Calcium Phosphorus Magnesium Lactate Dehydrogenase 256 H Total Protein 6.4 L Albumin Pleural pH Pleural WBC 0.204 Pleural RBC 0.005 Pleural Neutrophils 86 Pleural Lymphocytes 5 Pleural Monocytes 7 Pleural Basophils 1 Pleural Other Cells 1 Pleural Total Protein 5.4 Pleural Albumin 3.2 Pleural LDH 1559 Pleural Glucose 67 Blood Type Antibody Screen 03/28/22 03/29/22 03/29/22 18:30 04:08 04:13 WBC RBC Hgb Hct MCV MCH MCHC RDW Plt Count MPV Immature Gran % (Auto) Neut % (Auto) Lymph % (Auto) Dawes % (Auto) Eos % (Auto) Baso % (Auto) Lymph # (Auto) Dawes # (Auto) Eos # (Auto) Baso # (Auto) Abs Immat Gran (auto) Absolute Neuts (auto) Absolute Nucleated RBC Nucleated RBC % (auto) Smear Tech's Comments APTT VBG pH 7.50 H VBG pCO2 37 VBG pO2 68 VBG HCO3 29 H VBG O2 Saturation 92.0 VBG Base Excess 6.2 Sodium 136 Potassium 4.1 Chloride 98 Carbon Dioxide 27 Anion Gap 15 BUN 13 Creatinine 0.58 Estim Creat Clear Calc 112.5 Estimated GFR > 60 Random Glucose 139 H Calcium 9.3 Phosphorus 3.1 Magnesium 2.2 Lactate Dehydrogenase Total Protein Albumin 3.5 Pleural pH 7.57 Pleural WBC Pleural RBC Pleural Neutrophils Pleural Lymphocytes Pleural Monocytes Pleural Basophils Pleural Other Cells Pleural Total Protein Pleural Albumin Pleural LDH Pleural Glucose Blood Type Antibody Screen 03/29/22 03/29/22 03/29/22 04:13 04:13 04:13 WBC 40.0 H* RBC 3.95 L Hgb 11.3 L Hct 34.0 L MCV 86.1 MCH 28.6 MCHC 33.2 RDW 13.2 Plt Count 561 H MPV 9.2 L Immature Gran % (Auto) 1.7 H Neut % (Auto) 88.3 H Lymph % (Auto) 4.3 L Dawes % (Auto) 5.4 Eos % (Auto) 0.1 Baso % (Auto) 0.2 Lymph # (Auto) 1.7 Dawes # (Auto) 2.2 H Eos # (Auto) 0.0 Baso # (Auto) 0.1 Abs Immat Gran (auto) 0.70 H Absolute Neuts (auto) 35.4 H Absolute Nucleated RBC 0.000 Nucleated RBC % (auto) 0.0 Smear Tech's Comments VERIFIED APTT 29.9 VBG pH VBG pCO2 VBG pO2 VBG HCO3 VBG O2 Saturation VBG Base Excess Sodium Potassium Chloride Carbon Dioxide Anion Gap BUN Creatinine Estim Creat Clear Calc Estimated GFR Random Glucose Calcium Phosphorus Magnesium Lactate Dehydrogenase Total Protein Albumin Pleural pH Pleural WBC Pleural RBC Pleural Neutrophils Pleural Lymphocytes Pleural Monocytes Pleural Basophils Pleural Other Cells Pleural Total Protein Pleural Albumin Pleural LDH Pleural Glucose Blood Type O Positive Antibody Screen NEGATIVE Microbiology Microbiology Results: Microbiology 03/28/22 18:30 Pleural Fluid Gram Stain - Final 03/28/22 18:30 Pleural Fluid Routine Culture - Preliminary No growth to date. 03/28/22 18:30 Pleural Fluid Anaerobic Culture - Preliminary No growth to date. 03/27/22 19:23 Blood - Venous Blood Culture - Preliminary No growth after 24 hours. 03/27/22 18:54 Blood - Venous Blood Culture - Preliminary No growth after 24 hours. Progress Note: A&P Assessment and plan (1) Loculated pleural effusion: Status: Acute (2) Acute respiratory failure with hypoxia: Status: Acute (3) Bacterial pneumonia: Status: Acute Plan Assessment: 62-year-old lady admitted with acute hypoxic respiratory failure with large right-sided loculated pleural effusion and likely underlying bacterial pneumonia, now status post chest tube with improvement in respiratory status Plan: Neuro: No acute issues. Cardiac: No acute issues. Pulmonary: loculated right-sided pleural effusion, parapneumonic, status post large-bore chest tube or with drainage of approximately 1 L of pleural fluid, started on intrapleural tPA/DNase. Thoracic surgery service care appreciated. Planned for mechanical decortication on 03/30/2022. Renal: No acute issues. Endo: No acute issues. GI: No acute issues. ID: cultures are pending, empirically covered with vancomycin, ceftriaxone, and azithromycin. Heme/Onc: No acute issues. Psych: No acute issues. Miscellaneous: No acute issues. Prophylaxis: Lovenox Diet: regular, NPO at midnight Patient transferred to telemetry chowdhury. Transfer discussed with Dr. Goodwin. Quality Stroke Does the patient have a stroke diagnosis?: No VTE Prior VTE?: No VTE Risk Level:: Medical - moderate - high VTE Device Contraindication: Treatment Not Indicated VTE Drug Contraindication: N/A - Med Ordered
--- NOTE | 2022-03-29 16:15 | PM.EVENT ---
Event Note Date of Service: 03/30/22 Event Note: Patient was downgraded by ICU this afternoon: Patient came to the hospital because of acute hypoxemic respiratory failure secondary to complicated pneumonia with right-sided pleural effusion-requiring IV antibiotics and chest tube placement. Physical exam: Please see ICU note unchanged. Assessment and plan coordinated in ICU note: Blood culture and pleural fluid culture preliminary negative. Continue IV antibiotics, chest tube management and CT surgery following. Time Spent With Patient Time: Total time managing care of this patient today ____ minutes.
[2022-03-29 21:41] LABS: Vancomycin Trough 4.7 mcg/mL (10.0-20.0)
[2022-03-29] MEDS: Azithromycin 500 MG TABLET PO (21:59)
[2022-03-29] MEDS: Enoxaparin Sodium 40 MG/0.4 ML SYRINGE SUBCUT (22:03)
[2022-03-29] MEDS: Acetaminophen 325 MG TABLET 650 MG PO (22:03)
[2022-03-30] VITALS (17 sets, daily range): BP systolic 103–134; BP diastolic 63–84; PULSE 86–97; RESP 18–30; TEMP 36.2–37.5; O2SAT 91–97
[2022-03-30] MEDS: LORazepam 2 MG/ML VIAL 0.5 MG IVPUSH (00:02)
[2022-03-30] MEDS: fentaNYL citrate/PF 100 MCG/2 ML VIAL 50 MCG IVPUSH ×2 (01:28→07:49)
[2022-03-30] MEDS: vancomycin HCL 1,000 MG in 0.9 % Sodium Chloride 250 ML 270 MG IV ×2 (01:36→07:37)
[2022-03-30] MEDS: 0.9 % Sodium Chloride Flush 3 ML SYRINGE IVFLUSH ×2 (01:37→07:37)
[2022-03-30 05:59] LABS: Hematocrit 41.1 % (37.0-47.0); Hemoglobin 13.6 g/dl (12.0-16.0); Mean Corpuscular HGB Conc 33.1 g/dl (31.0-35.0); Mean Corpuscular Hemoglobin 27.8 pg (27.0-33.0); Mean Platelet Volume 9.1 fL (9.4-12.3); Platelet Count 624 X10*3/uL (160-400); Red Blood Count 4.89 X10*6/uL (4.20-5.50); Red Cell Distribution Width 13.2 % (11.0-16.0); Venous Blood Gas Refer to POC result; WBC ABN SCTR FOR CBC 1
[2022-03-30 05:59] LABS: VBG Base Excess 4.1 mmol/L; VBG HCO3 25 mmol/L (22-26); VBG pCO2 28 mmHg; VBG pH 7.55 (7.32-7.43); VBG pO2 166 mmHg
[2022-03-30 06:10] LABS: White Blood Count 37.6 X10*3/uL (4.8-10.8)
[2022-03-30 06:22] LABS: Band Neutrophils Percent 1 % (3-5); Lymphocytes Absolute Manual 1.1 X10*3/uL (1.2-4.9); Lymphocytes Percent Manual 3 % (20-40); Monocytes Absolute Manual 0.8 X10*3/uL (0.1-1.2); Monocytes Percent Manual 2 % (2-11); Neutrophils Absolute Manual 35.7 X10*3/uL (2.0-8.3); Neutrophils Percent Manual 94 % (45-73)
[2022-03-30 06:23] LABS: Platelet Estimate INCREASED (NORMAL); Platelet Morphology Comment NORMAL; RBC Morphology NORMAL
[2022-03-30 06:34] LABS: Anion Gap 14 (12-20); Blood Urea Nitrogen 18 mg/dL (9-16); Calcium 9.3 mg/dL (8.4-10.2); Carbon Dioxide 26 mmol/L (22-29); Chloride 97 mmol/L (96-108); Estimated Glomerular Filt Rate > 60; Glucose Random 174 mg/dL (60-115); Sodium 133 mmol/L (135-145)
[2022-03-30 06:36] LABS: Albumin Level 3.2 g/dL (3.5-5.0); Anion Gap 14 (12-20); Blood Urea Nitrogen 19 mg/dL (9-16); Calcium 9.4 mg/dL (8.4-10.2); Carbon Dioxide 26 mmol/L (22-29); Chloride 98 mmol/L (96-108); Creatinine Clr Calc Pharmacy 105.3; Estimated Glomerular Filt Rate > 60; Glucose Random 172 mg/dL (60-115); Phosphorus 4.7 mg/dL (2.7-4.5); Sodium 134 mmol/L (135-145)
--- NOTE | 2022-03-30 07:21 | PC.NURSE ---
19:28 Notified pt was on continous fentynl pump and pt feels it is not managing her pain , stated IV push was more effective. Md ordered 5 mcg q 1 hr Md stated don't give q 1 hr unless pt requests. orders d/c pump. 23:02 Notified pt suffering from anxiety, ordered IV push ativan. 00:22 Notified Uziel Calabrese Nurse practitioner of pt chest tube dressing saturated and fell off, Porvider changed dressing.
[2022-03-30] MEDS: cefTRIAXone sodium 1 GM in 0.9 % Sodium Chloride 50 ML IV (08:38)
[2022-03-30] MEDS: HYDROmorphone HCl 0.5 MG/0.5 ML SYRINGE IVPUSH ×3 (11:57→23:57)
--- NOTE | 2022-03-30 13:33 | HO.ANESPROP2 ---
HPI - Anesthesia Eval Consult details Narrative: 62 year old female for right VATS PMFSH Active Problems Active Problems: All Active Problems (Updated 03/30/22 @ 11:11 by Marley Le PA-C) Sepsis (Acute) Loculated pleural effusion (Acute) Bacterial pneumonia (Acute) Acute respiratory failure with hypoxia (Acute) Personal history of nicotine dependence (Acute) Anxiety (Acute) Depression (Acute) Past Medical History Medical History (Updated 03/30/22 @ 11:11 by Marley Le PA-C) Anxiety Basal cell carcinoma Depression DJD (degenerative joint disease) Functional capacity: independent ambulation Family History Family History Father Cancer Mother HTN (hypertension) Surgical History Surgical History (Updated 03/30/22 @ 11:09 by Marley eL PA-C) History of basal cell carcinoma excision History of chest tube placement Social History Social History Household Members: None Housing: Apartment Do you presently have visiting nurse or other home services: No Patient Tobacco Use Status: Never used Tobacco Tobacco use type: Cigarette Cigarette Packs Per Day: 1 Cigarettes Per Day: 20.0 e-Cigarette/Vaping Use: Former Use Second Hand Smoke Exposure: No service: No Current occupational status: employed Meds Allergies Allergy/AdvReac Type Severity Reaction Status Date / Time sulfamethoxazole Allergy Intermediate Rash Verified 03/28/22 16:52 Active Medications: Current Medications Acetaminophen (Acetaminophen 325 Mg Tablet) 650 mg PO Q6H PRN PRN Reason: Pain, Mild (Pain Scale 1-3) Last Admin: 03/29/22 22:03 Dose: 650 mg Albuterol Sulfate (Albuterol Sulfate (0.083%) 2.5 Mg/3 Ml Vial.Neb) 2.5 mg INHALE RQ6H PRN PRN Reason: Wheezing Last Admin: 03/29/22 18:25 Dose: 2.5 mg Azithromycin (Azithromycin 500 Mg Tablet) 500 mg PO Q24H MARTÍN Last Admin: 03/29/22 21:59 Dose: 500 mg Docusate Sodium (Docusate Sodium 100 Mg Capsule) 100 mg PO DAILY PRN PRN Reason: Constipation Enoxaparin Sodium (Enoxaparin Sodium 40 Mg/0.4 Ml Syringe) 40 mg SUBCUT Q24H [facility] Last Admin: 03/29/22 22:03 Dose: 40 mg Fentanyl (Fentanyl Citrate/Pf 100 Mcg/2 Ml Vial) 50 mcg IVPUSH Q1H PRN; Protocol PRN Reason: Pain, Moderate (Pain Scale 4-6 Last Admin: 03/30/22 07:49 Dose: 50 mcg Hydromorphone HCl (Hydromorphone Hcl 0.5 Mg/0.5 Ml Syringe) 0.5 mg IVPUSH Q4H PRN; Protocol PRN Reason: Pain, Mild (Pain Scale 1-3) Last Admin: 03/30/22 11:57 Dose: 0.5 mg Ceftriaxone Sodium 1 gm/ (Sodium Chloride) 50 mls @ 100 mls/hr IV Q24H [facility] Last Infusion: 03/30/22 10:23 Dose: Infused Vancomycin HCl 1,000 mg/ (Sodium Chloride) 270 mls @ 270 mls/hr IV Q8H [facility] Last Infusion: 03/30/22 10:23 Dose: Infused Multivitamins/Vitamin C (Multivitamin Tablet) 1 tab PO DAILY [facility] Last Admin: 03/29/22 08:11 Dose: 1 tab Naloxone HCl (Naloxone Hcl 0.4 Mg/Ml Vial) 0.2 mg IVPUSH Q2M PRN PRN Reason: Excessive sedation or RR < 8 Ondansetron HCl (Ondansetron Hcl 4 Mg/2 Ml Vial) 4 mg IVPUSH Q8H PRN PRN Reason: Nausea and Vomiting Pharmacy Consult (Consult Rx Perform Med Rec) 1 each MISCELLANE ONCE PRN PRN Reason: Consult order Pharmacy Consult (Consult Rx Vancomycin Dosing) 1 each MISCELLANE DAILY PRN PRN Reason: Consult order Pregabalin (Pregabalin 75 Mg Capsule) 225 mg PO BID [facility] Last Admin: 03/29/22 22:00 Dose: 225 mg Sodium Chloride (0.9 % Sodium Chloride Flush 3 Ml Syringe) 3 ml IVFLUSH QSHIFT [facility] Last Admin: 03/30/22 07:37 Dose: 3 ml Home Medications Medication Instructions Recorded Confirmed Last Taken Type apple cider vinegar 300 mg tablet 300 mg PO DAILY 03/27/22 03/27/22 Unknown History claudia (Zingiber officinalis) 250 250 mg PO DAILY 03/27/22 03/27/22 Unknown History mg capsule (claudia extract) multivitamin 1 tab PO DAILY 03/27/22 03/27/22 Unknown History oxycodone 15 mg tablet 1 tab PO Q6H PRN severe pain 03/27/22 03/27/22 Unknown History pregabalin 225 mg capsule 1 cap PO BID 03/27/22 03/27/22 Unknown History turmeric root extract 500 mg 500 mg PO DAILY 03/27/22 03/27/22 Unknown History capsule Exam Exam Date and Time: March 30, 2022 1333 Height,Weight and Vital Signs: Height 5 ft 8 in Weight 79.2 kg Last Vital Signs Temp 97.2 F 03/30/22 08:00 Pulse 93 03/30/22 08:00 Resp 23 H 03/30/22 08:00 BP 116/84 03/30/22 08:00 Pulse Ox 93 03/30/22 08:00 O2 Del Method 03/30/22 08:00 O2 Flow Rate 2 03/30/22 08:00 Pertinent Lab Results Pertinent Lab Results: Laboratory Tests 03/27/22 03/27/22 03/27/22 18:54 18:54 18:54 WBC 35.7 H* RBC 4.35 Hgb 12.1 Hct 37.4 MCV 86.0 MCH 27.8 MCHC 32.4 RDW 13.1 Plt Count 653 H MPV 8.9 L Immature Gran % (Auto) 0.9 H Neut % (Auto) 91.3 H Lymph % (Auto) 3.6 L Crowley % (Auto) 4.0 Eos % (Auto) 0.0 Baso % (Auto) 0.2 Lymph # (Auto) 1.3 Crowley # (Auto) 1.4 H Eos # (Auto) 0.0 Baso # (Auto) 0.1 Abs Immat Gran (auto) 0.31 H Absolute Neuts (auto) 32.6 H Absolute Nucleated RBC 0.000 Nucleated RBC % (auto) 0.0 Neutrophils % (Manual) Band Neutrophils % Lymphocytes % (Manual) Monocytes % (Manual) Abs Neuts (Manual) Lymphocytes # (Manual) Monocytes # (Manual) Platelet Estimate Plt Morphology Comment RBC Morphology Smear Tech's Comments VERIFIED Smear Path Review SEE NOTE PT INR APTT VBG pH VBG pCO2 VBG pO2 VBG HCO3 VBG O2 Saturation VBG Base Excess Sodium 133 L Potassium 3.8 Chloride 98 Carbon Dioxide 22 Anion Gap 17 BUN 17 H Creatinine 0.69 Estim Creat Clear Calc 86.4 Estimated GFR > 60 Random Glucose 188 H Lactic Acid 1.5 Calcium 9.0 Phosphorus Magnesium 1.9 Total Bilirubin 0.3 Direct Bilirubin 0.2 AST 7 ALT 7 Alkaline Phosphatase 132 H Lactate Dehydrogenase Troponin I High Sens B-Natriuretic Peptide Total Protein 6.7 Albumin 4.0 Pleural pH Pleural WBC Pleural RBC Pleural Neutrophils Pleural Lymphocytes Pleural Monocytes Pleural Basophils Pleural Other Cells Pleural Total Protein Pleural Albumin Pleural LDH Pleural Glucose Vancomycin Trough Influenza Type A (PCR) Influenza Type B (PCR) RSV RNA Qual (PCR) SARS-CoV-2 RNA (RT-PCR) Blood Type Antibody Screen 03/27/22 03/27/22 03/27/22 18:54 18:54 18:54 WBC RBC Hgb Hct MCV MCH MCHC RDW Plt Count MPV Immature Gran % (Auto) Neut % (Auto) Lymph % (Auto) Crowley % (Auto) Eos % (Auto) Baso % (Auto) Lymph # (Auto) Crowley # (Auto) Eos # (Auto) Baso # (Auto) Abs Immat Gran (auto) Absolute Neuts (auto) Absolute Nucleated RBC Nucleated RBC % (auto) Neutrophils % (Manual) Band Neutrophils % Lymphocytes % (Manual) Monocytes % (Manual) Abs Neuts (Manual) Lymphocytes # (Manual) Monocytes # (Manual) Platelet Estimate Plt Morphology Comment RBC Morphology Smear Tech's Comments Smear Path Review PT 15.9 H INR 1.4 H APTT VBG pH VBG pCO2 VBG pO2 VBG HCO3 VBG O2 Saturation VBG Base Excess Sodium Potassium Chloride Carbon Dioxide Anion Gap BUN Creatinine Estim Creat Clear Calc Estimated GFR Random Glucose Lactic Acid Calcium Phosphorus Magnesium Total Bilirubin Direct Bilirubin AST ALT Alkaline Phosphatase Lactate Dehydrogenase Troponin I High Sens < 3.5 B-Natriuretic Peptide Total Protein Albumin Pleural pH Pleural WBC Pleural RBC Pleural Neutrophils Pleural Lymphocytes Pleural Monocytes Pleural Basophils Pleural Other Cells Pleural Total Protein Pleural Albumin Pleural LDH Pleural Glucose Vancomycin Trough Influenza Type A (PCR) NEGATIVE Influenza Type B (PCR) NEGATIVE RSV RNA Qual (PCR) NEGATIVE SARS-CoV-2 RNA (RT-PCR) NEGATIVE Blood Type Antibody Screen 03/27/22 03/28/22 03/28/22 18:54 06:30 06:30 WBC 38.9 H* RBC 4.14 L Hgb 12.0 Hct 35.8 L MCV 86.5 MCH 29.0 MCHC 33.5 RDW 13.3 Plt Count 596 H MPV 9.0 L Immature Gran % (Auto) 1.8 H Neut % (Auto) 93.0 H Lymph % (Auto) 2.3 L Crowley % (Auto) 2.4 Eos % (Auto) 0.2 Baso % (Auto) 0.3 Lymph # (Auto) 0.9 L Crowley # (Auto) 1.0 Eos # (Auto) 0.1 Baso # (Auto) 0.1 Abs Immat Gran (auto) 0.71 H Absolute Neuts (auto) 36.2 H Absolute Nucleated RBC 0.000 Nucleated RBC % (auto) 0.0 Neutrophils % (Manual) Band Neutrophils % Lymphocytes % (Manual) Monocytes % (Manual) Abs Neuts (Manual) Lymphocytes # (Manual) Monocytes # (Manual) Platelet Estimate Plt Morphology Comment RBC Morphology Smear Tech's Comments VERIFIED Smear Path Review PT INR APTT VBG pH VBG pCO2 VBG pO2 VBG HCO3 VBG O2 Saturation VBG Base Excess Sodium 136 Potassium 4.5 Chloride 100 Carbon Dioxide 25 Anion Gap 16 BUN 13 Creatinine 0.66 Estim Creat Clear Calc 90.3 Estimated GFR > 60 Random Glucose 174 H Lactic Acid Calcium 9.1 Phosphorus Magnesium Total Bilirubin Direct Bilirubin AST ALT Alkaline Phosphatase Lactate Dehydrogenase Troponin I High Sens B-Natriuretic Peptide 30 Total Protein Albumin Pleural pH Pleural WBC Pleural RBC Pleural Neutrophils Pleural Lymphocytes Pleural Monocytes Pleural Basophils Pleural Other Cells Pleural Total Protein Pleural Albumin Pleural LDH Pleural Glucose Vancomycin Trough Influenza Type A (PCR) Influenza Type B (PCR) RSV RNA Qual (PCR) SARS-CoV-2 RNA (RT-PCR) Blood Type Antibody Screen 03/28/22 03/28/22 03/28/22 14:11 17:41 18:29 WBC RBC Hgb Hct MCV MCH MCHC RDW Plt Count MPV Immature Gran % (Auto) Neut % (Auto) Lymph % (Auto) Crowley % (Auto) Eos % (Auto) Baso % (Auto) Lymph # (Auto) Crowley # (Auto) Eos # (Auto) Baso # (Auto) Abs Immat Gran (auto) Absolute Neuts (auto) Absolute Nucleated RBC Nucleated RBC % (auto) Neutrophils % (Manual) Band Neutrophils % Lymphocytes % (Manual) Monocytes % (Manual) Abs Neuts (Manual) Lymphocytes # (Manual) Monocytes # (Manual) Platelet Estimate Plt Morphology Comment RBC Morphology Smear Tech's Comments Smear Path Review PT INR APTT VBG pH VBG pCO2 VBG pO2 VBG HCO3 VBG O2 Saturation VBG Base Excess Sodium Potassium Chloride Carbon Dioxide Anion Gap BUN Creatinine Estim Creat Clear Calc Estimated GFR Random Glucose Lactic Acid Calcium Phosphorus Magnesium Total Bilirubin Direct Bilirubin AST ALT Alkaline Phosphatase Lactate Dehydrogenase 186 256 H Troponin I High Sens B-Natriuretic Peptide Total Protein 6.7 6.4 L Albumin 4.0 Pleural pH Pleural WBC 0.204 Pleural RBC 0.005 Pleural Neutrophils 86 Pleural Lymphocytes 5 Pleural Monocytes 7 Pleural Basophils 1 Pleural Other Cells 1 Pleural Total Protein Pleural Albumin Pleural LDH Pleural Glucose Vancomycin Trough Influenza Type A (PCR) Influenza Type B (PCR) RSV RNA Qual (PCR) SARS-CoV-2 RNA (RT-PCR) Blood Type Antibody Screen 03/28/22 03/28/22 03/29/22 18:30 18:30 04:08 WBC RBC Hgb Hct MCV MCH MCHC RDW Plt Count MPV Immature Gran % (Auto) Neut % (Auto) Lymph % (Auto) Crowley % (Auto) Eos % (Auto) Baso % (Auto) Lymph # (Auto) Crowley # (Auto) Eos # (Auto) Baso # (Auto) Abs Immat Gran (auto) Absolute Neuts (auto) Absolute Nucleated RBC Nucleated RBC % (auto) Neutrophils % (Manual) Band Neutrophils % Lymphocytes % (Manual) Monocytes % (Manual) Abs Neuts (Manual) Lymphocytes # (Manual) Monocytes # (Manual) Platelet Estimate Plt Morphology Comment RBC Morphology Smear Tech's Comments Smear Path Review PT INR APTT VBG pH 7.50 H VBG pCO2 37 VBG pO2 68 VBG HCO3 29 H VBG O2 Saturation 92.0 VBG Base Excess 6.2 Sodium Potassium Chloride Carbon Dioxide Anion Gap BUN Creatinine Estim Creat Clear Calc Estimated GFR Random Glucose Lactic Acid Calcium Phosphorus Magnesium Total Bilirubin Direct Bilirubin AST ALT Alkaline Phosphatase Lactate Dehydrogenase Troponin I High Sens B-Natriuretic Peptide Total Protein Albumin Pleural pH 7.57 Pleural WBC Pleural RBC Pleural Neutrophils Pleural Lymphocytes Pleural Monocytes Pleural Basophils Pleural Other Cells Pleural Total Protein 5.4 Pleural Albumin 3.2 Pleural LDH 1559 Pleural Glucose 67 Vancomycin Trough Influenza Type A (PCR) Influenza Type B (PCR) RSV RNA Qual (PCR) SARS-CoV-2 RNA (RT-PCR) Blood Type Antibody Screen 03/29/22 03/29/22 03/29/22 04:13 04:13 04:13 WBC RBC Hgb Hct MCV MCH MCHC RDW Plt Count MPV Immature Gran % (Auto) Neut % (Auto) Lymph % (Auto) Crowley % (Auto) Eos % (Auto) Baso % (Auto) Lymph # (Auto) Crowley # (Auto) Eos # (Auto) Baso # (Auto) Abs Immat Gran (auto) Absolute Neuts (auto) Absolute Nucleated RBC Nucleated RBC % (auto) Neutrophils % (Manual) Band Neutrophils % Lymphocytes % (Manual) Monocytes % (Manual) Abs Neuts (Manual) Lymphocytes # (Manual) Monocytes # (Manual) Platelet Estimate Plt Morphology Comment RBC Morphology Smear Tech's Comments Smear Path Review PT INR APTT 29.9 VBG pH VBG pCO2 VBG pO2 VBG HCO3 VBG O2 Saturation VBG Base Excess Sodium 136 Potassium 4.1 Chloride 98 Carbon Dioxide 27 Anion Gap 15 BUN 13 Creatinine 0.58 Estim Creat Clear Calc 112.5 Estimated GFR > 60 Random Glucose 139 H Lactic Acid Calcium 9.3 Phosphorus 3.1 Magnesium 2.2 Total Bilirubin Direct Bilirubin AST ALT Alkaline Phosphatase Lactate Dehydrogenase Troponin I High Sens B-Natriuretic Peptide Total Protein Albumin 3.5 Pleural pH Pleural WBC Pleural RBC Pleural Neutrophils Pleural Lymphocytes Pleural Monocytes Pleural Basophils Pleural Other Cells Pleural Total Protein Pleural Albumin Pleural LDH Pleural Glucose Vancomycin Trough Influenza Type A (PCR) Influenza Type B (PCR) RSV RNA Qual (PCR) SARS-CoV-2 RNA (RT-PCR) Blood Type O Positive Antibody Screen NEGATIVE 03/29/22 03/29/22 03/30/22 04:13 21:14 05:46 WBC 40.0 H* 37.6 H* RBC 3.95 L 4.89 D Hgb 11.3 L 13.6 D Hct 34.0 L 41.1 D MCV 86.1 84.0 MCH 28.6 27.8 MCHC 33.2 33.1 RDW 13.2 13.2 Plt Count 561 H 624 H MPV 9.2 L 9.1 L Immature Gran % (Auto) 1.7 H Cancelled Neut % (Auto) 88.3 H Cancelled Lymph % (Auto) 4.3 L Cancelled Crowley % (Auto) 5.4 Cancelled Eos % (Auto) 0.1 Cancelled Baso % (Auto) 0.2 Cancelled Lymph # (Auto) 1.7 Cancelled Crowley # (Auto) 2.2 H Cancelled Eos # (Auto) 0.0 Cancelled Baso # (Auto) 0.1 Cancelled Abs Immat Gran (auto) 0.70 H Cancelled Absolute Neuts (auto) 35.4 H Cancelled Absolute Nucleated RBC 0.000 0.000 Nucleated RBC % (auto) 0.0 0.0 Neutrophils % (Manual) 94 H Band Neutrophils % 1 L Lymphocytes % (Manual) 3 L Monocytes % (Manual) 2 Abs Neuts (Manual) 35.7 H Lymphocytes # (Manual) 1.1 L Monocytes # (Manual) 0.8 Platelet Estimate INCREASED Plt Morphology Comment NORMAL RBC Morphology NORMAL Smear Tech's Comments VERIFIED Smear Path Review PT INR APTT VBG pH VBG pCO2 VBG pO2 VBG HCO3 VBG O2 Saturation VBG Base Excess Sodium Potassium Chloride Carbon Dioxide Anion Gap BUN Creatinine Estim Creat Clear Calc Estimated GFR Random Glucose Lactic Acid Calcium Phosphorus Magnesium Total Bilirubin Direct Bilirubin AST ALT Alkaline Phosphatase Lactate Dehydrogenase Troponin I High Sens B-Natriuretic Peptide Total Protein Albumin Pleural pH Pleural WBC Pleural RBC Pleural Neutrophils Pleural Lymphocytes Pleural Monocytes Pleural Basophils Pleural Other Cells Pleural Total Protein Pleural Albumin Pleural LDH Pleural Glucose Vancomycin Trough 4.7 L Influenza Type A (PCR) Influenza Type B (PCR) RSV RNA Qual (PCR) SARS-CoV-2 RNA (RT-PCR) Blood Type Antibody Screen 03/30/22 03/30/22 03/30/22 05:46 05:47 05:52 WBC RBC Hgb Hct MCV MCH MCHC RDW Plt Count MPV Immature Gran % (Auto) Neut % (Auto) Lymph % (Auto) Crowley % (Auto) Eos % (Auto) Baso % (Auto) Lymph # (Auto) Crowley # (Auto) Eos # (Auto) Baso # (Auto) Abs Immat Gran (auto) Absolute Neuts (auto) Absolute Nucleated RBC Nucleated RBC % (auto) Neutrophils % (Manual) Band Neutrophils % Lymphocytes % (Manual) Monocytes % (Manual) Abs Neuts (Manual) Lymphocytes # (Manual) Monocytes # (Manual) Platelet Estimate Plt Morphology Comment RBC Morphology Smear Tech's Comments Smear Path Review PT INR APTT VBG pH 7.55 H VBG pCO2 28 VBG pO2 166 VBG HCO3 25 VBG O2 Saturation 100.0 VBG Base Excess 4.1 Sodium 133 L 134 L Potassium 4.0 4.0 Chloride 97 98 Carbon Dioxide 26 26 Anion Gap 14 14 BUN 18 H 19 H Creatinine 0.61 0.62 Estim Creat Clear Calc 107.0 105.3 Estimated GFR > 60 > 60 Random Glucose 174 H 172 H Lactic Acid Calcium 9.3 9.4 Phosphorus 4.7 H Magnesium 2.0 Total Bilirubin Direct Bilirubin AST ALT Alkaline Phosphatase Lactate Dehydrogenase Troponin I High Sens B-Natriuretic Peptide Total Protein Albumin 3.2 L Pleural pH Pleural WBC Pleural RBC Pleural Neutrophils Pleural Lymphocytes Pleural Monocytes Pleural Basophils Pleural Other Cells Pleural Total Protein Pleural Albumin Pleural LDH Pleural Glucose Vancomycin Trough Influenza Type A (PCR) Influenza Type B (PCR) RSV RNA Qual (PCR) SARS-CoV-2 RNA (RT-PCR) Blood Type Antibody Screen Airway Mallampati Class: III Neck ROM: Full Partial: Upper and Lower Heart: rrr Lungs: diminished breath sds on right upper partial plate on airway exam Assessment and Plan Assessment Anesthesia Assessment: Anesthesia Plan Discussed and Chart Reviewed Final Anesthetic Review NPO: Yes ASA Class: IV Final Preanesthetic Review: No Changes in Pt Med Stat, Meds/Allgs Chart Reviewed, Consent Obtained/Reviewed and Anes Risks/Benef Reviewed Patient Risk: High Procedure Risk: High Anesthetic Plan Anesthetic Plan: GA and Agree w/ Assess. and Plan Disposition: Extended PACU
--- NOTE | 2022-03-30 13:47 | P.CONAN_ITS ---
FORM[facility]LY [facility], LATER [facility] Active Problems Active Problems: All Active Problems (Updated 03/30/22 @ 11:11 by Marley Le PA-C) Sepsis (Acute) Loculated pleural effusion (Acute) Bacterial pneumonia (Acute) Acute respiratory failure with hypoxia (Acute) Personal history of nicotine dependence (Acute) Anxiety (Acute) Depression (Acute) Past Medical History Medical History (Updated 03/30/22 @ 11:11 by Marley Le PA-C) Anxiety Basal cell carcinoma Depression DJD (degenerative joint disease) Functional capacity: independent ambulation Family History Family History Father Cancer Mother HTN (hypertension) Surgical History Surgical History (Updated 03/30/22 @ 11:09 by Marley Le PA-C) History of basal cell carcinoma excision History of chest tube placement Social History Social History Household Members: None Housing: Apartment Do you presently have visiting nurse or other home services: No Patient Tobacco Use Status: Never used Tobacco Tobacco use type: Cigarette Cigarette Packs Per Day: 1 Cigarettes Per Day: 20.0 e-Cigarette/Vaping Use: Former Use Second Hand Smoke Exposure: No service: No Current occupational status: employed Meds Allergies Allergy/AdvReac Type Severity Reaction Status Date / Time sulfamethoxazole Allergy Intermediate Rash Verified 03/28/22 16:52 Active Medications: Current Medications Acetaminophen (Acetaminophen 325 Mg Tablet) 650 mg PO Q6H PRN PRN Reason: Pain, Mild (Pain Scale 1-3) Last Admin: 03/29/22 22:03 Dose: 650 mg Albuterol Sulfate (Albuterol Sulfate (0.083%) 2.5 Mg/3 Ml Vial.Neb) 2.5 mg INHALE RQ6H PRN PRN Reason: Wheezing Last Admin: 03/29/22 18:25 Dose: 2.5 mg Azithromycin (Azithromycin 500 Mg Tablet) 500 mg PO Q24H MARTÍN Last Admin: 03/29/22 21:59 Dose: 500 mg Docusate Sodium (Docusate Sodium 100 Mg Capsule) 100 mg PO DAILY PRN PRN Reason: Constipation Enoxaparin Sodium (Enoxaparin Sodium 40 Mg/0.4 Ml Syringe) 40 mg SUBCUT Q24H MARTÍN Last Admin: 03/29/22 22:03 Dose: 40 mg Fentanyl (Fentanyl Citrate/Pf 100 Mcg/2 Ml Vial) 50 mcg IVPUSH Q1H PRN; Protocol PRN Reason: Pain, Moderate (Pain Scale 4-6 Last Admin: 03/30/22 07:49 Dose: 50 mcg Hydromorphone HCl (Hydromorphone Hcl 0.5 Mg/0.5 Ml Syringe) 0.5 mg IVPUSH Q4H PRN; Protocol PRN Reason: Pain, Mild (Pain Scale 1-3) Last Admin: 03/30/22 11:57 Dose: 0.5 mg Ceftriaxone Sodium 1 gm/ (Sodium Chloride) 50 mls @ 100 mls/hr IV Q24H [facility] Last Infusion: 03/30/22 10:23 Dose: Infused Vancomycin HCl 1,000 mg/ (Sodium Chloride) 270 mls @ 270 mls/hr IV Q8H [facility] Last Infusion: 03/30/22 10:23 Dose: Infused Multivitamins/Vitamin C (Multivitamin Tablet) 1 tab PO DAILY [facility] Last Admin: 03/29/22 08:11 Dose: 1 tab Naloxone HCl (Naloxone Hcl 0.4 Mg/Ml Vial) 0.2 mg IVPUSH Q2M PRN PRN Reason: Excessive sedation or RR < 8 Ondansetron HCl (Ondansetron Hcl 4 Mg/2 Ml Vial) 4 mg IVPUSH Q8H PRN PRN Reason: Nausea and Vomiting Pharmacy Consult (Consult Rx Perform Med Rec) 1 each MISCELLANE ONCE PRN PRN Reason: Consult order Pharmacy Consult (Consult Rx Vancomycin Dosing) 1 each MISCELLANE DAILY PRN PRN Reason: Consult order Pregabalin (Pregabalin 75 Mg Capsule) 225 mg PO BID [facility] Last Admin: 03/29/22 22:00 Dose: 225 mg Sodium Chloride (0.9 % Sodium Chloride Flush 3 Ml Syringe) 3 ml IVFLUSH QSHIFT [facility] Last Admin: 03/30/22 07:37 Dose: 3 ml Home Medications Medication Instructions Recorded Confirmed Last Taken Type apple cider vinegar 300 mg tablet 300 mg PO DAILY 03/27/22 03/27/22 Unknown History claudia (Zingiber officinalis) 250 250 mg PO DAILY 03/27/22 03/27/22 Unknown History mg capsule (claudia extract) multivitamin 1 tab PO DAILY 03/27/22 03/27/22 Unknown History oxycodone 15 mg tablet 1 tab PO Q6H PRN severe pain 03/27/22 03/27/22 Unknown History pregabalin 225 mg capsule 1 cap PO BID 03/27/22 03/27/22 Unknown History turmeric root extract 500 mg 500 mg PO DAILY 03/27/22 03/27/22 Unknown History capsule Exam Exam Date and Time: March 30, 2022 1347 Height,Weight and Vital Signs: Height 5 ft 8 in Weight 79.2 kg Last Vital Signs Temp 97.2 F 03/30/22 08:00 Pulse 93 03/30/22 08:00 Resp 23 H 03/30/22 08:00 BP 116/84 03/30/22 08:00 Pulse Ox 93 03/30/22 08:00 O2 Del Method 03/30/22 08:00 O2 Flow Rate 2 03/30/22 08:00 Pertinent Lab Results Pertinent Lab Results: Laboratory Tests 03/27/22 03/27/22 03/27/22 18:54 18:54 18:54 WBC 35.7 H* RBC 4.35 Hgb 12.1 Hct 37.4 MCV 86.0 MCH 27.8 MCHC 32.4 RDW 13.1 Plt Count 653 H MPV 8.9 L Immature Gran % (Auto) 0.9 H Neut % (Auto) 91.3 H Lymph % (Auto) 3.6 L Pettis % (Auto) 4.0 Eos % (Auto) 0.0 Baso % (Auto) 0.2 Lymph # (Auto) 1.3 Pettis # (Auto) 1.4 H Eos # (Auto) 0.0 Baso # (Auto) 0.1 Abs Immat Gran (auto) 0.31 H Absolute Neuts (auto) 32.6 H Absolute Nucleated RBC 0.000 Nucleated RBC % (auto) 0.0 Neutrophils % (Manual) Band Neutrophils % Lymphocytes % (Manual) Monocytes % (Manual) Abs Neuts (Manual) Lymphocytes # (Manual) Monocytes # (Manual) Platelet Estimate Plt Morphology Comment RBC Morphology Smear Tech's Comments VERIFIED Smear Path Review SEE NOTE PT INR APTT VBG pH VBG pCO2 VBG pO2 VBG HCO3 VBG O2 Saturation VBG Base Excess Sodium 133 L Potassium 3.8 Chloride 98 Carbon Dioxide 22 Anion Gap 17 BUN 17 H Creatinine 0.69 Estim Creat Clear Calc 86.4 Estimated GFR > 60 Random Glucose 188 H Lactic Acid 1.5 Calcium 9.0 Phosphorus Magnesium 1.9 Total Bilirubin 0.3 Direct Bilirubin 0.2 AST 7 ALT 7 Alkaline Phosphatase 132 H Lactate Dehydrogenase Troponin I High Sens B-Natriuretic Peptide Total Protein 6.7 Albumin 4.0 Pleural pH Pleural WBC Pleural RBC Pleural Neutrophils Pleural Lymphocytes Pleural Monocytes Pleural Basophils Pleural Other Cells Pleural Total Protein Pleural Albumin Pleural LDH Pleural Glucose Vancomycin Trough Influenza Type A (PCR) Influenza Type B (PCR) RSV RNA Qual (PCR) SARS-CoV-2 RNA (RT-PCR) Blood Type Antibody Screen 03/27/22 03/27/22 03/27/22 18:54 18:54 18:54 WBC RBC Hgb Hct MCV MCH MCHC RDW Plt Count MPV Immature Gran % (Auto) Neut % (Auto) Lymph % (Auto) Pettis % (Auto) Eos % (Auto) Baso % (Auto) Lymph # (Auto) Pettis # (Auto) Eos # (Auto) Baso # (Auto) Abs Immat Gran (auto) Absolute Neuts (auto) Absolute Nucleated RBC Nucleated RBC % (auto) Neutrophils % (Manual) Band Neutrophils % Lymphocytes % (Manual) Monocytes % (Manual) Abs Neuts (Manual) Lymphocytes # (Manual) Monocytes # (Manual) Platelet Estimate Plt Morphology Comment RBC Morphology Smear Tech's Comments Smear Path Review PT 15.9 H INR 1.4 H APTT VBG pH VBG pCO2 VBG pO2 VBG HCO3 VBG O2 Saturation VBG Base Excess Sodium Potassium Chloride Carbon Dioxide Anion Gap BUN Creatinine Estim Creat Clear Calc Estimated GFR Random Glucose Lactic Acid Calcium Phosphorus Magnesium Total Bilirubin Direct Bilirubin AST ALT Alkaline Phosphatase Lactate Dehydrogenase Troponin I High Sens < 3.5 B-Natriuretic Peptide Total Protein Albumin Pleural pH Pleural WBC Pleural RBC Pleural Neutrophils Pleural Lymphocytes Pleural Monocytes Pleural Basophils Pleural Other Cells Pleural Total Protein Pleural Albumin Pleural LDH Pleural Glucose Vancomycin Trough Influenza Type A (PCR) NEGATIVE Influenza Type B (PCR) NEGATIVE RSV RNA Qual (PCR) NEGATIVE SARS-CoV-2 RNA (RT-PCR) NEGATIVE Blood Type Antibody Screen 03/27/22 03/28/22 03/28/22 18:54 06:30 06:30 WBC 38.9 H* RBC 4.14 L Hgb 12.0 Hct 35.8 L MCV 86.5 MCH 29.0 MCHC 33.5 RDW 13.3 Plt Count 596 H MPV 9.0 L Immature Gran % (Auto) 1.8 H Neut % (Auto) 93.0 H Lymph % (Auto) 2.3 L Pettis % (Auto) 2.4 Eos % (Auto) 0.2 Baso % (Auto) 0.3 Lymph # (Auto) 0.9 L Pettis # (Auto) 1.0 Eos # (Auto) 0.1 Baso # (Auto) 0.1 Abs Immat Gran (auto) 0.71 H Absolute Neuts (auto) 36.2 H Absolute Nucleated RBC 0.000 Nucleated RBC % (auto) 0.0 Neutrophils % (Manual) Band Neutrophils % Lymphocytes % (Manual) Monocytes % (Manual) Abs Neuts (Manual) Lymphocytes # (Manual) Monocytes # (Manual) Platelet Estimate Plt Morphology Comment RBC Morphology Smear Tech's Comments VERIFIED Smear Path Review PT INR APTT VBG pH VBG pCO2 VBG pO2 VBG HCO3 VBG O2 Saturation VBG Base Excess Sodium 136 Potassium 4.5 Chloride 100 Carbon Dioxide 25 Anion Gap 16 BUN 13 Creatinine 0.66 Estim Creat Clear Calc 90.3 Estimated GFR > 60 Random Glucose 174 H Lactic Acid Calcium 9.1 Phosphorus Magnesium Total Bilirubin Direct Bilirubin AST ALT Alkaline Phosphatase Lactate Dehydrogenase Troponin I High Sens B-Natriuretic Peptide 30 Total Protein Albumin Pleural pH Pleural WBC Pleural RBC Pleural Neutrophils Pleural Lymphocytes Pleural Monocytes Pleural Basophils Pleural Other Cells Pleural Total Protein Pleural Albumin Pleural LDH Pleural Glucose Vancomycin Trough Influenza Type A (PCR) Influenza Type B (PCR) RSV RNA Qual (PCR) SARS-CoV-2 RNA (RT-PCR) Blood Type Antibody Screen 03/28/22 03/28/22 03/28/22 14:11 17:41 18:29 WBC RBC Hgb Hct MCV MCH MCHC RDW Plt Count MPV Immature Gran % (Auto) Neut % (Auto) Lymph % (Auto) Pettis % (Auto) Eos % (Auto) Baso % (Auto) Lymph # (Auto) Pettis # (Auto) Eos # (Auto) Baso # (Auto) Abs Immat Gran (auto) Absolute Neuts (auto) Absolute Nucleated RBC Nucleated RBC % (auto) Neutrophils % (Manual) Band Neutrophils % Lymphocytes % (Manual) Monocytes % (Manual) Abs Neuts (Manual) Lymphocytes # (Manual) Monocytes # (Manual) Platelet Estimate Plt Morphology Comment RBC Morphology Smear Tech's Comments Smear Path Review PT INR APTT VBG pH VBG pCO2 VBG pO2 VBG HCO3 VBG O2 Saturation VBG Base Excess Sodium Potassium Chloride Carbon Dioxide Anion Gap BUN Creatinine Estim Creat Clear Calc Estimated GFR Random Glucose Lactic Acid Calcium Phosphorus Magnesium Total Bilirubin Direct Bilirubin AST ALT Alkaline Phosphatase Lactate Dehydrogenase 186 256 H Troponin I High Sens B-Natriuretic Peptide Total Protein 6.7 6.4 L Albumin 4.0 Pleural pH Pleural WBC 0.204 Pleural RBC 0.005 Pleural Neutrophils 86 Pleural Lymphocytes 5 Pleural Monocytes 7 Pleural Basophils 1 Pleural Other Cells 1 Pleural Total Protein Pleural Albumin Pleural LDH Pleural Glucose Vancomycin Trough Influenza Type A (PCR) Influenza Type B (PCR) RSV RNA Qual (PCR) SARS-CoV-2 RNA (RT-PCR) Blood Type Antibody Screen 03/28/22 03/28/22 03/29/22 18:30 18:30 04:08 WBC RBC Hgb Hct MCV MCH MCHC RDW Plt Count MPV Immature Gran % (Auto) Neut % (Auto) Lymph % (Auto) Pettis % (Auto) Eos % (Auto) Baso % (Auto) Lymph # (Auto) Pettis # (Auto) Eos # (Auto) Baso # (Auto) Abs Immat Gran (auto) Absolute Neuts (auto) Absolute Nucleated RBC Nucleated RBC % (auto) Neutrophils % (Manual) Band Neutrophils % Lymphocytes % (Manual) Monocytes % (Manual) Abs Neuts (Manual) Lymphocytes # (Manual) Monocytes # (Manual) Platelet Estimate Plt Morphology Comment RBC Morphology Smear Tech's Comments Smear Path Review PT INR APTT VBG pH 7.50 H VBG pCO2 37 VBG pO2 68 VBG HCO3 29 H VBG O2 Saturation 92.0 VBG Base Excess 6.2 Sodium Potassium Chloride Carbon Dioxide Anion Gap BUN Creatinine Estim Creat Clear Calc Estimated GFR Random Glucose Lactic Acid Calcium Phosphorus Magnesium Total Bilirubin Direct Bilirubin AST ALT Alkaline Phosphatase Lactate Dehydrogenase Troponin I High Sens B-Natriuretic Peptide Total Protein Albumin Pleural pH 7.57 Pleural WBC Pleural RBC Pleural Neutrophils Pleural Lymphocytes Pleural Monocytes Pleural Basophils Pleural Other Cells Pleural Total Protein 5.4 Pleural Albumin 3.2 Pleural LDH 1559 Pleural Glucose 67 Vancomycin Trough Influenza Type A (PCR) Influenza Type B (PCR) RSV RNA Qual (PCR) SARS-CoV-2 RNA (RT-PCR) Blood Type Antibody Screen 03/29/22 03/29/22 03/29/22 04:13 04:13 04:13 WBC RBC Hgb Hct MCV MCH MCHC RDW Plt Count MPV Immature Gran % (Auto) Neut % (Auto) Lymph % (Auto) Pettis % (Auto) Eos % (Auto) Baso % (Auto) Lymph # (Auto) Pettis # (Auto) Eos # (Auto) Baso # (Auto) Abs Immat Gran (auto) Absolute Neuts (auto) Absolute Nucleated RBC Nucleated RBC % (auto) Neutrophils % (Manual) Band Neutrophils % Lymphocytes % (Manual) Monocytes % (Manual) Abs Neuts (Manual) Lymphocytes # (Manual) Monocytes # (Manual) Platelet Estimate Plt Morphology Comment RBC Morphology Smear Tech's Comments Smear Path Review PT INR APTT 29.9 VBG pH VBG pCO2 VBG pO2 VBG HCO3 VBG O2 Saturation VBG Base Excess Sodium 136 Potassium 4.1 Chloride 98 Carbon Dioxide 27 Anion Gap 15 BUN 13 Creatinine 0.58 Estim Creat Clear Calc 112.5 Estimated GFR > 60 Random Glucose 139 H Lactic Acid Calcium 9.3 Phosphorus 3.1 Magnesium 2.2 Total Bilirubin Direct Bilirubin AST ALT Alkaline Phosphatase Lactate Dehydrogenase Troponin I High Sens B-Natriuretic Peptide Total Protein Albumin 3.5 Pleural pH Pleural WBC Pleural RBC Pleural Neutrophils Pleural Lymphocytes Pleural Monocytes Pleural Basophils Pleural Other Cells Pleural Total Protein Pleural Albumin Pleural LDH Pleural Glucose Vancomycin Trough Influenza Type A (PCR) Influenza Type B (PCR) RSV RNA Qual (PCR) SARS-CoV-2 RNA (RT-PCR) Blood Type O Positive Antibody Screen NEGATIVE 03/29/22 03/29/22 03/30/22 04:13 21:14 05:46 WBC 40.0 H* 37.6 H* RBC 3.95 L 4.89 D Hgb 11.3 L 13.6 D Hct 34.0 L 41.1 D MCV 86.1 84.0 MCH 28.6 27.8 MCHC 33.2 33.1 RDW 13.2 13.2 Plt Count 561 H 624 H MPV 9.2 L 9.1 L Immature Gran % (Auto) 1.7 H Cancelled Neut % (Auto) 88.3 H Cancelled Lymph % (Auto) 4.3 L Cancelled Pettis % (Auto) 5.4 Cancelled Eos % (Auto) 0.1 Cancelled Baso % (Auto) 0.2 Cancelled Lymph # (Auto) 1.7 Cancelled Pettis # (Auto) 2.2 H Cancelled Eos # (Auto) 0.0 Cancelled Baso # (Auto) 0.1 Cancelled Abs Immat Gran (auto) 0.70 H Cancelled Absolute Neuts (auto) 35.4 H Cancelled Absolute Nucleated RBC 0.000 0.000 Nucleated RBC % (auto) 0.0 0.0 Neutrophils % (Manual) 94 H Band Neutrophils % 1 L Lymphocytes % (Manual) 3 L Monocytes % (Manual) 2 Abs Neuts (Manual) 35.7 H Lymphocytes # (Manual) 1.1 L Monocytes # (Manual) 0.8 Platelet Estimate INCREASED Plt Morphology Comment NORMAL RBC Morphology NORMAL Smear Tech's Comments VERIFIED Smear Path Review PT INR APTT VBG pH VBG pCO2 VBG pO2 VBG HCO3 VBG O2 Saturation VBG Base Excess Sodium Potassium Chloride Carbon Dioxide Anion Gap BUN Creatinine Estim Creat Clear Calc Estimated GFR Random Glucose Lactic Acid Calcium Phosphorus Magnesium Total Bilirubin Direct Bilirubin AST ALT Alkaline Phosphatase Lactate Dehydrogenase Troponin I High Sens B-Natriuretic Peptide Total Protein Albumin Pleural pH Pleural WBC Pleural RBC Pleural Neutrophils Pleural Lymphocytes Pleural Monocytes Pleural Basophils Pleural Other Cells Pleural Total Protein Pleural Albumin Pleural LDH Pleural Glucose Vancomycin Trough 4.7 L Influenza Type A (PCR) Influenza Type B (PCR) RSV RNA Qual (PCR) SARS-CoV-2 RNA (RT-PCR) Blood Type Antibody Screen 03/30/22 03/30/22 03/30/22 05:46 05:47 05:52 WBC RBC Hgb Hct MCV MCH MCHC RDW Plt Count MPV Immature Gran % (Auto) Neut % (Auto) Lymph % (Auto) Pettis % (Auto) Eos % (Auto) Baso % (Auto) Lymph # (Auto) Pettis # (Auto) Eos # (Auto) Baso # (Auto) Abs Immat Gran (auto) Absolute Neuts (auto) Absolute Nucleated RBC Nucleated RBC % (auto) Neutrophils % (Manual) Band Neutrophils % Lymphocytes % (Manual) Monocytes % (Manual) Abs Neuts (Manual) Lymphocytes # (Manual) Monocytes # (Manual) Platelet Estimate Plt Morphology Comment RBC Morphology Smear Tech's Comments Smear Path Review PT INR APTT VBG pH 7.55 H VBG pCO2 28 VBG pO2 166 VBG HCO3 25 VBG O2 Saturation 100.0 VBG Base Excess 4.1 Sodium 133 L 134 L Potassium 4.0 4.0 Chloride 97 98 Carbon Dioxide 26 26 Anion Gap 14 14 BUN 18 H 19 H Creatinine 0.61 0.62 Estim Creat Clear Calc 107.0 105.3 Estimated GFR > 60 > 60 Random Glucose 174 H 172 H Lactic Acid Calcium 9.3 9.4 Phosphorus 4.7 H Magnesium 2.0 Total Bilirubin Direct Bilirubin AST ALT Alkaline Phosphatase Lactate Dehydrogenase Troponin I High Sens B-Natriuretic Peptide Total Protein Albumin 3.2 L Pleural pH Pleural WBC Pleural RBC Pleural Neutrophils Pleural Lymphocytes Pleural Monocytes Pleural Basophils Pleural Other Cells Pleural Total Protein Pleural Albumin Pleural LDH Pleural Glucose Vancomycin Trough Influenza Type A (PCR) Influenza Type B (PCR) RSV RNA Qual (PCR) SARS-CoV-2 RNA (RT-PCR) Blood Type Antibody Screen Airway Heart: rrr Lungs: diminished breath sounds on right Other: [id number] 89 on 4 liters asa class 4 airway 2 high risk Assessment and Plan Assessment Anesthesia Assessment: Anesthesia Plan Discussed
--- NOTE | 2022-03-30 13:58 | MHC.SHP ---
Pre-Procedural Eval Section A Date of Service: 03/30/22 The patient is an INPATIENT: Yes Section B Chief Complaint: Hypoxic resp failure, PNA Allergies: Allergies Allergy/AdvReac Type Severity Reaction Status Date / Time sulfamethoxazole Allergy Intermediate Rash Verified 03/28/22 16:52 Plan I have reviewed the history and physical and performed a pertinent physical examination on my patient. No changes have occurred unless specified. Time Spent With Patient Time: Total time managing care of this patient today ____ minutes.
--- NOTE | 2022-03-30 15:36 | P.PNIM_ITS ---
Subjective Subjective Date of Service: 03/30/22 Interval History: Acute hypoxemic respiratory failure secondary to complicated pneumonia with right-sided pleural effusion status post chest tube, possible need of decortication. Review of Systems Patient says that breathing is somewhat better than yesterday but she is very sore at that due to chest tube. Chest tube is still draining. has few pvc's on tele. Denies any chest pain or abdominal pain or nausea or vomiting Physical Exam Vital Signs: Vital Signs: Last Vital Signs Temp 97.3 F 03/30/22 13:29 Pulse 97 03/30/22 13:29 Resp 30 H 03/30/22 13:29 BP 113/75 03/30/22 13:29 Pulse Ox 91 L 03/30/22 13:29 O2 Del Method 03/30/22 13:29 O2 Flow Rate 2 03/30/22 08:00 BMI result Body Mass Index 26.5 ?Appearance: Alert.? Oriented X3.?sob and has chest tube area soarness. cvs: [id number], [id number] res: air entry fair ,slightly diminshed at bases. abd: no rebound or guarding ,nt, bs present. ext pulses present , no cyanosis. neuro: axo3 , nonfocal. Objective Data Active Medications Acetaminophen (Acetaminophen 325 Mg Tablet) 650 mg PO Q6H PRN PRN Reason: Pain, Mild (Pain Scale 1-3) Last Admin: 03/29/22 22:03 Dose: 650 mg Documented By: ANTOINETTE Albuterol Sulfate (Albuterol Sulfate (0.083%) 2.5 Mg/3 Ml Vial.Neb) 2.5 mg INHALE RQ6H PRN PRN Reason: Wheezing Last Admin: 03/29/22 18:25 Dose: 2.5 mg Documented By: ANASTASIA Azithromycin (Azithromycin 500 Mg Tablet) 500 mg PO Q24H [facility] Last Admin: 03/29/22 21:59 Dose: 500 mg Documented By: ANTOINETTE Docusate Sodium (Docusate Sodium 100 Mg Capsule) 100 mg PO DAILY PRN PRN Reason: Constipation Enoxaparin Sodium (Enoxaparin Sodium 40 Mg/0.4 Ml Syringe) 40 mg SUBCUT Q24H [facility] Last Admin: 03/29/22 22:03 Dose: 40 mg Documented By: ANTOINETTE Fentanyl (Fentanyl Citrate/Pf 100 Mcg/2 Ml Vial) 50 mcg IVPUSH Q1H PRN; Protocol PRN Reason: Pain, Moderate (Pain Scale 4-6 Last Admin: 03/30/22 07:49 Dose: 50 mcg Documented By: CAITLYN Hydromorphone HCl (Hydromorphone Hcl 0.5 Mg/0.5 Ml Syringe) 0.5 mg IVPUSH Q4H PRN; Protocol PRN Reason: Pain, Mild (Pain Scale 1-3) Last Admin: 03/30/22 11:57 Dose: 0.5 mg Documented By: CAITLYN Ceftriaxone Sodium 1 gm/ (Sodium Chloride) 50 mls @ 100 mls/hr IV Q24H [facility] Last Infusion: 03/30/22 10:23 Dose: 0 mls/hr Documented By: CAITLYN Vancomycin HCl 1,000 mg/ (Sodium Chloride) 270 mls @ 270 mls/hr IV Q8H [facility] Last Infusion: 03/30/22 10:23 Dose: 0 mls/hr Documented By: CAITLYN Multivitamins/Vitamin C (Multivitamin Tablet) 1 tab PO DAILY [facility] Last Admin: 03/29/22 08:11 Dose: 1 tab Documented By: AIDEN Naloxone HCl (Naloxone Hcl 0.4 Mg/Ml Vial) 0.2 mg IVPUSH Q2M PRN PRN Reason: Excessive sedation or RR < 8 Ondansetron HCl (Ondansetron Hcl 4 Mg/2 Ml Vial) 4 mg IVPUSH Q8H PRN PRN Reason: Nausea and Vomiting Pharmacy Consult (Consult Rx Perform Med Rec) 1 each MISCELLANE ONCE PRN PRN Reason: Consult order Pharmacy Consult (Consult Rx Vancomycin Dosing) 1 each MISCELLANE DAILY PRN PRN Reason: Consult order Pregabalin (Pregabalin 75 Mg Capsule) 225 mg PO BID [facility] Last Admin: 03/29/22 22:00 Dose: 225 mg Documented By: ANTOINETTE Sodium Chloride (0.9 % Sodium Chloride Flush 3 Ml Syringe) 3 ml IVFLUSH QSHIFT [facility] Last Admin: 03/30/22 07:37 Dose: 3 ml Documented By: CAITLYN Labs 03/30/22 05:46 03/30/22 05:47 Labs: Laboratory Results - last 24 hr 03/29/22 03/30/22 03/30/22 21:14 05:46 05:46 MCV 84.0 MCH 27.8 MCHC 33.1 RDW 13.2 Plt Count 624 H MPV 9.1 L Immature Gran % (Auto) Cancelled Neut % (Auto) Cancelled Lymph % (Auto) Cancelled [place] % (Auto) Cancelled Eos % (Auto) Cancelled Baso % (Auto) Cancelled Lymph # (Auto) Cancelled [place] # (Auto) Cancelled Eos # (Auto) Cancelled Baso # (Auto) Cancelled Abs Immat Gran (auto) Cancelled Absolute Neuts (auto) Cancelled Absolute Nucleated RBC 0.000 Nucleated RBC % (auto) 0.0 Neutrophils % (Manual) 94 H Band Neutrophils % 1 L Lymphocytes % (Manual) 3 L Monocytes % (Manual) 2 Abs Neuts (Manual) 35.7 H Lymphocytes # (Manual) 1.1 L Monocytes # (Manual) 0.8 Platelet Estimate INCREASED Plt Morphology Comment NORMAL RBC Morphology NORMAL VBG pH VBG pCO2 VBG pO2 VBG HCO3 VBG O2 Saturation VBG Base Excess Anion Gap 14 Estim Creat Clear Calc 107.0 Estimated GFR > 60 Random Glucose 174 H Calcium 9.3 Phosphorus Magnesium Albumin Vancomycin Trough 4.7 L 03/30/22 03/30/22 05:47 05:52 MCV MCH MCHC RDW Plt Count MPV Immature Gran % (Auto) Neut % (Auto) Lymph % (Auto) [place] % (Auto) Eos % (Auto) Baso % (Auto) Lymph # (Auto) [place] # (Auto) Eos # (Auto) Baso # (Auto) Abs Immat Gran (auto) Absolute Neuts (auto) Absolute Nucleated RBC Nucleated RBC % (auto) Neutrophils % (Manual) Band Neutrophils % Lymphocytes % (Manual) Monocytes % (Manual) Abs Neuts (Manual) Lymphocytes # (Manual) Monocytes # (Manual) Platelet Estimate Plt Morphology Comment RBC Morphology VBG pH 7.55 H VBG pCO2 28 VBG pO2 166 VBG HCO3 25 VBG O2 Saturation 100.0 VBG Base Excess 4.1 Anion Gap 14 Estim Creat Clear Calc 105.3 Estimated GFR > 60 Random Glucose 172 H Calcium 9.4 Phosphorus 4.7 H Magnesium 2.0 Albumin 3.2 L Vancomycin Trough Microbiology Microbiology Results: Microbiology 01/10/23 18:30 Gram Stain - Final Pleural Fluid Routine Culture - Preliminary No growth to date. Anaerobic Culture - Preliminary No growth to date. 03/27/22 19:23 Blood Culture - Preliminary Blood - Venous No growth after 48 hours. 03/27/22 18:54 Blood Culture - Preliminary Blood - Venous No growth after 48 hours. Assessment and Plan (1) Sepsis: Status: Acute (2) Loculated pleural effusion: Status: Acute (3) Bacterial pneumonia: Status: Acute (4) Acute respiratory failure with hypoxia: Status: Acute Plan 62-year-old female with past medical history of depression anxiety presents the hospital with acute respiratory failure found to have pneumonia # acute? hypoxic respiratory failure sec to sepsis(POA),pneumonia complicated with loculated pleural effusion Cultures from pleural fluid pending.blood cultures neg@48hrs Patient was initially started on IV antibiotics-on vanco/ceftriaxone/azithro ,s/p chest tube placement (03/28 by pulm) drained aroun 1liter fluid,still draining, continue pain management with IV pain medications, oxygen support for supportive care. moniter vanco trough Ct surgery plan for possible decortication ?DVT prophylaxis: hold Lovenox going for surgery ,[facility] Inpatient need:? Acute hypoxemic respiratory failure secondary to sepsis/pneum onia, loculated effusion need drainage and IV antibiotics,iv pain meds , vanco trough monitoring as well as renal function and electrolytes monitoring. Time Spent With Patient Time: Total time managing care of this patient today ____ minutes. Quality Stroke Does the patient have a stroke diagnosis?: No VTE Prior VTE?: No VTE Risk Level:: Medical - moderate - high VTE Device Contraindication: Treatment Not Indicated VTE Drug Contraindication: N/A - Med Ordered
--- NOTE | 2022-03-30 16:05 | P.OP_ITS ---
Operative Note Operative Note Date of Service: 03/30/22 Narrative: Preoperative diagnosis: Empyema Postoperative diagnosis: Same Operation: RightVATS decortication Surgeon: Yeison Monterroso MD Telegraphic Typewriter Repairer: Tim Chang Specimens: Pleural rind and pleural fluid for pathology/cytology and microbiology EBL: 100 cc Anesthesia: General Operation in detail: The patient was brought to the operating room, placed supinethe operative table, anesthesia monitoring devices were placed, and the patient was intubated with a double-lumen endotracheal tube. The tube was confirmed with a pediatric bronchoscope and a bronchoscopy was done with no endobronchial lesions and minimal secretions. The patient was then turned with the right chest up And chest was prepped and draped in the standard sterile fashion. A time-out was performed confirming the correct patient, site, and procedure. After injection of local anesthetic, a 1 cm incision was made the 7th intercostal space posterior axillary line and the chest was entered. With blunt dissection we of the clear some space around this and there was clearly adhesions within the chest. A 2nd incision was then made more superiorly and anteriorly over the 5th intercostal space about 3 cm in size after injection of local anesthetic chest was entered. We then were able to connect these 2 spaces with blunt dissection and get a 5 mm 45 degree scope into the 1st incision to visualize the space. After sometime within had enough space where we could free up the diaphragmatic surface with blunt dissection, anterior surface, posterior surface, and apex. Once this was done, the rind on the lung was then removed with a combination of blunt and sharp dissection decorticating the entire lung. 3 L of Pulsavac saline with vancomycin and it was then used to irrigate and wash out the chest. Once this was done, a 28 Armenian chest tube was placed with extra holes in it to lie posteriorly and up towards the apex with the more inferior holes over the diaphragm. The chest tube was secured in place with an 0 Vicryl suture and the remaining incisions were closed with a deep 0 Vicryl suture followed by running 3-0 Vicryl suture and Dermabond glue. Patient tolerated the procedure well as brought to the cover room in stable condition.
[2022-03-30] MEDS: vancomycin HCL 1,000 MG in 0.9 % Sodium Chloride 250 ML 250 MG IV ×2 (17:41→22:48)
--- NOTE | 2022-03-30 17:59 | PM.CCN ---
Critical Care Event Note Summary Date of Service: 03/30/22 Code activated: No Narrative: Evaluated in PACU after decortication. Initially, briefly required BiPAP. Now comfortable on high-flow 30% with normal oximetry. Alert and oriented. Normal hemodynamics. At this time can return to telemetry chowdhury. Please notify for re-evaluation, if patient's condition changes. Critical Care Time (minutes): 0
[2022-03-30] MEDS: oxyCODONE HCl Immed Release 5 MG TABLET 10 MG PO (18:06)
--- NOTE | 2022-03-30 18:21 | PC.NURSE ---
DR. MARQUEZ UPDATED PATIENT CLEARED TO TRANSFER TO [facility]MC ON HIGH FLOW 02 REMAINS STABLE. NO SP02 DESATURATIONS RR 20-22
--- NOTE | 2022-03-30 22:03 | HE.PHANOTE ---
VANCO DOSE ADJUSTMENT BASED ON TROUGH OF 14 DOSE CONTINUED AT 1000 8H. NEXT TROUGH 03/31 @ 2100
[2022-03-30] MEDS: Pregabalin 75 MG CAPSULE 225 MG PO (22:44)
[2022-03-30] MEDS: Acetaminophen 325 MG TABLET 975 MG PO (22:46)
[2022-03-30] MEDS: Azithromycin 500 MG TABLET PO (22:47)
[2022-03-31] VITALS (12 sets, daily range): BP systolic 107–118; BP diastolic 59–68; PULSE 82–89; RESP 16–22; TEMP 36.2–37; O2SAT 93–98
[2022-03-31] MEDS: 0.9 % Sodium Chloride Flush 3 ML SYRINGE IVFLUSH ×5 (00:06→22:51)
[2022-03-31] MEDS: Ketorolac Tromethamine 15 MG/ML VIAL IVPUSH ×2 (00:32→08:50)
--- NOTE | 2022-03-31 05:38 | PC.RT ---
HFNC 40L 35%. Pt roz well
[2022-03-31] MEDS: HYDROmorphone HCl 0.5 MG/0.5 ML SYRINGE IVPUSH ×3 (06:10→20:38)
[2022-03-31 06:35] LABS: Hemoglobin 11.4 g/dl (12.0-16.0); Mean Corpuscular HGB Conc 33.5 g/dl (31.0-35.0); Mean Corpuscular Hemoglobin 28.7 pg (27.0-33.0); Mean Corpuscular Volume 85.6 fL (80.0-98.0); Mean Platelet Volume 9.5 fL (9.4-12.3); Platelet Count 547 X10*3/uL (160-400); Red Blood Count 3.97 X10*6/uL (4.20-5.50); Red Cell Distribution Width 13.5 % (11.0-16.0); White Blood Count 25.2 X10*3/uL (4.8-10.8)
[2022-03-31] MEDS: vancomycin HCL 1,000 MG in 0.9 % Sodium Chloride 250 ML 250 MG IV (06:38)
[2022-03-31 06:55] LABS: Anion Gap 16 (12-20); Blood Urea Nitrogen 24 mg/dL (9-16); Carbon Dioxide 25 mmol/L (22-29); Chloride 101 mmol/L (96-108); Creatinine Clr Calc Pharmacy 81.6; Estimated Glomerular Filt Rate > 60; Glucose Random 117 mg/dL (60-115); Potassium 4.6 mmol/L (3.3-5.1); Sodium 137 mmol/L (135-145)
[2022-03-31] MEDS: Albuterol Sulfate (0.083%) 2.5 MG/3 ML VIAL.NEB INHALE ×2 (07:44→22:17)
--- NOTE | 2022-03-31 08:17 | HO.POSTANES ---
Post Anesthesia Evaluation Post Anesthesia Evaluation Vital Signs: Vital Signs Temp Pulse Resp BP Pulse Ox O2 Del Method O2 Flow Rate 03/31/22 07:52 98.0 F 82 16 108/64 96 High Flow Nasal Cannula 30 03/31/22 07:47 22 H 03/31/22 07:46 86 22 H 03/31/22 04:00 83 18 High Flow Nasal Cannula 30 03/30/22 23:26 97.6 F 91 18 131/76 94 High Flow Nasal Cannula 30 FiO2 03/31/22 07:52 45 03/31/22 07:47 03/31/22 07:46 03/31/22 04:00 45 03/30/22 23:26 45 Anesthesia: General Endotracheal-GETA (double lumen tube) Mental Status: Awake Pain Control: Satisfactory Nausea/Vomiting: None Hydration: Adequate Anesthesia-Related Issues: No Anes. Related Issues
[2022-03-31] MEDS: Acetaminophen 325 MG TABLET 975 MG PO ×3 (08:49→22:49)
[2022-03-31] MEDS: cefTRIAXone sodium 1 GM in 0.9 % Sodium Chloride 50 ML IV (08:49)
[2022-03-31] MEDS: Heparin Sodium,Porcine 5,000 UNIT/ML VIAL 5000 UNIT SUBCUT ×2 (08:50→18:23)
[2022-03-31] MEDS: Pregabalin 75 MG CAPSULE 225 MG PO ×2 (08:51→19:31)
[2022-03-31] MEDS: Multivitamin TABLET 1 TAB PO (08:51)
--- NOTE | 2022-03-31 09:21 | PC.RT ---
02/28/2023 @0844 pt. currently on HFNC, tolerating well. PRN albuterol administered. informed to enter HFNC order
--- NOTE | 2022-03-31 12:15 | P.PNIM_ITS ---
Subjective Subjective Date of Service: 04/01/22 Interval History: Acute hypoxemic respiratory failure secondary to complicated pneumonia has chest tube, status post decortication yesterday. High-flow follow oxygen. Review of Systems Patient is still in significant pain and sore. Breathing fair but has soreness with breathing Denies any nausea or vomiting or abdominal pain or fever or chills. Physical Exam Vital Signs: Vital Signs: Last Vital Signs Temp 97.2 F 03/31/22 11:20 Pulse 84 03/31/22 11:20 Resp 20 03/31/22 11:20 BP 107/59 L 03/31/22 11:20 Pulse Ox 94 03/31/22 11:20 O2 Del Method 03/31/22 11:20 O2 Flow Rate 30 03/31/22 11:20 FiO2 45 03/31/22 11:20 BMI result Body Mass Index 26.5 ?Appearance: Alert.? Oriented X3.? cvs: rrr, [id number] res: air entry fair ,slightly diminshed at bases.has soreness s/p decortication abd: no rebound or guarding ,nt, bs present. ext pulses present , no cyanosis. neuro: axo3 , nonfocal. Objective Data Active Medications Acetaminophen (Acetaminophen 325 Mg Tablet) 975 mg PO Q6H [facility] Last Admin: 03/31/22 08:49 Dose: 975 mg Documented By: JANE Albuterol Sulfate (Albuterol Sulfate (0.083%) 2.5 Mg/3 Ml Vial.Neb) 2.5 mg INHALE RQ6H PRN PRN Reason: Wheezing Last Admin: 03/31/22 07:44 Dose: 2.5 mg Documented By: ANASTASIA Azithromycin (Azithromycin 500 Mg Tablet) 500 mg PO Q24H [facility] Last Admin: 03/30/22 22:47 Dose: 500 mg Documented By: ANTOINETTE Docusate Sodium (Docusate Sodium 100 Mg Capsule) 100 mg PO DAILY PRN PRN Reason: Constipation Heparin Sodium (Porcine) (Heparin Sodium,Porcine 5,000 Unit/Ml Vial) 5,000 unit SUBCUT Q8H [facility] Last Admin: 03/31/22 08:50 Dose: 5,000 unit Documented By: JANE Hydromorphone HCl (Hydromorphone Hcl 0.5 Mg/0.5 Ml Syringe) 0.5 mg IVPUSH Q3H PRN; Protocol PRN Reason: severe breakthrough pain Last Admin: 03/31/22 06:10 Dose: 0.5 mg Documented By: ANTOINETTE Ceftriaxone Sodium 1 gm/ (Sodium Chloride) 50 mls @ 100 mls/hr IV Q24H [facility] Last Infusion: 03/31/22 09:51 Dose: 0 mls/hr Documented By: JANE Vancomycin HCl 1,000 mg/ (Sodium Chloride) 270 mls @ 270 mls/hr IV Q8H [facility] Last Infusion: 03/31/22 08:07 Dose: 0 mls/hr Documented By: JANE Ketorolac Tromethamine (Ketorolac Tromethamine 15 Mg/Ml Vial) 15 mg IVPUSH Q8H [facility] Last Admin: 03/31/22 08:50 Dose: 15 mg Documented By: JANE Multivitamins/Vitamin C (Multivitamin Tablet) 1 tab PO DAILY [facility] Last Admin: 03/31/22 08:51 Dose: 1 tab Documented By: JANE Naloxone HCl (Naloxone Hcl 0.4 Mg/Ml Vial) 0.2 mg IVPUSH Q2M PRN PRN Reason: Excessive sedation or RR < 8 Ondansetron HCl (Ondansetron Hcl 4 Mg/2 Ml Vial) 4 mg IVPUSH Q8H PRN PRN Reason: Nausea and Vomiting Oxycodone HCl (Oxycodone Hcl Immed Release 5 Mg Tablet) 10 mg PO Q4H PRN PRN Reason: Pain, Moderate (Pain Scale 4-6 Last Admin: 03/30/22 18:06 Dose: 10 mg Documented By: AUSTEN Oxycodone HCl (Oxycodone Hcl Immed Release 15 Mg Tablet) 15 mg PO Q4H PRN PRN Reason: Pain, Severe (Pain Scale 7-10) Pharmacy Consult (Consult Rx Perform Med Rec) 1 each MISCELLANE ONCE PRN PRN Reason: Consult order Pharmacy Consult (Consult Rx Vancomycin Dosing) 1 each MISCELLANE DAILY PRN PRN Reason: Consult order Pregabalin (Pregabalin 75 Mg Capsule) 225 mg PO BID [facility] Last Admin: 03/31/22 08:51 Dose: 225 mg Documented By: JANE Sodium Chloride (0.9 % Sodium Chloride Flush 3 Ml Syringe) 3 ml IVFLUSH QSHIFT [facility] Last Admin: 03/31/22 08:51 Dose: 3 ml Documented By: JANE Sodium Chloride (0.9 % Sodium Chloride Flush 3 Ml Syringe) 3 ml IVFLUSH QSHIFT [facility] Last Admin: 03/31/22 08:51 Dose: Not Given Documented By: JANE Non-Admin Reason: Duplicate Order Labs 03/31/22 05:56 03/31/22 05:56 Labs: Laboratory Results - last 24 hr 03/30/22 03/31/22 03/31/22 20:53 05:56 05:56 MCV 85.6 MCH 28.7 MCHC 33.5 RDW 13.5 Plt Count 547 H MPV 9.5 Absolute Nucleated RBC 0.000 Nucleated RBC % (auto) 0.0 Anion Gap 16 Estim Creat Clear Calc 81.6 Estimated GFR > 60 Random Glucose 117 H Calcium 8.0 L D Random Vancomycin 14.0 L Microbiology Microbiology Results: Microbiology 03/30/22 14:55 Gram Stain - Final Pleural Fluid Routine Culture - Preliminary No growth to date. Anaerobic Culture - Preliminary No growth to date. 03/30/22 14:55 Gram Stain - Final Lung - Pleura,Rt Lung Routine Culture - Preliminary No growth to date. Anaerobic Culture - Preliminary No growth to date. 03/28/22 18:30 Gram Stain - Final Pleural Fluid Routine Culture - Preliminary Culture in progress. Anaerobic Culture - Preliminary Culture in progress. Assessment and Plan (1) Sepsis: Status: Acute (2) Loculated pleural effusion: Status: Acute (3) Bacterial pneumonia: Status: Acute (4) Acute respiratory failure with hypoxia: Status: Acute Plan 62-year-old female with past medical history of depression anxiety presents the hospital with acute respiratory failure found to have pneumonia # acute? hypoxic respiratory failure sec to sepsis(POA),pneumonia complicated with loculated pleural effusion Cultures from pleural fluid pending.blood cultures neg@48hrs vanco troph: 14 pleural culture -gram positive cocci ? Patient was initially started on IV antibiotics-on vanco/ceftriaxone/azithro ,s/p chest tube placement (03/28 by pulm) and decortication , continue pain management with IV pain medications, oxygen support for supportive care. moniter vanco trough Ct surgery followin ?DVT prophylaxis: s/c heparin Inpatient need:? Acute hypoxemic respiratory failure secondary to sepsis/pn eum[place], loculated effusion need drainage and IV antibiotics,iv pain meds , vanco trough monitoring as well as renal function and electrolytes monitoring. Time Spent With Patient Time: Total time managing care of this patient today ____ minutes. Quality Stroke Does the patient have a stroke diagnosis?: No VTE Prior VTE?: No VTE Risk Level:: Medical - moderate - high VTE Device Contraindication: Treatment Not Indicated VTE Drug Contraindication: N/A - Med Ordered
--- NOTE | 2022-03-31 14:01 | P.PNTS_ITS ---
Subjective Subjective Date of Service: 03/31/22 Interval history: Patient was seen and examined this morning.Remains on 30% nasal high flow denies any concerning symptoms such as shortness of breath at rest, hemoptysis, fever or chills. Her urinary catheter was not removed overnight and patient has not yet ambulated. Nursing was instructed to remove her urinary catheter and to ensure patient ambulates in the hallway minimum 3-4 times per day in hallway with nursing assistance. Her right-sided chest tube remains on -20 low wall suction with approximately 180 cc of serosanguineous fluid output. Her leukocytosis has been trending downward today 25 previously 37 Review of Systems Constitutional: Denies: Chills, Fatigue, Fever Eyes: Denies: Blurred Vision, Diplopia Head and Neck: Denies: Headache Cardiovascular: Denies: Chest Pain, Edema, Palpitations Respiratory: Denies: Cough, SOB or Hemoptysis Gastrointestinal: Denies: Abdominal Distention, Abdominal Pain, Constipation, Diarrhea Genitourinary: Dewey catheter indwelling Neurological: Denies: Focal Weakness, Numbness, Paresthesia Physical Exam Vital Signs: Vital Signs: Last Vital Signs Temp 97.2 F 03/31/22 11:20 Pulse 84 03/31/22 11:20 Resp 16 03/31/22 13:35 BP 107/59 L 03/31/22 11:20 Pulse Ox 94 03/31/22 11:20 O2 Del Method 03/31/22 11:20 O2 Flow Rate 30 03/31/22 11:20 FiO2 45 03/31/22 11:20 BMI result Body Mass Index 26.5 General: Awake, alert and oriented x 3, Head : normocephalic with no signs of trauma. Eyes: PERRL, extra ocular movements intact. Ears: Normal shape and symmetry with no signs of trauma. Nose: Neg for epistaxis and non traumatic Throat: Trachea midline with no subcutaneous air present. Cardiac: RRR with normal S1 S2 and no rubs murmurs or gallops Thoracic: Right-sidedchest tube remains in place with dressing in place which is clean dry and intact, remained -20 LWS overnight with approximately 180 cc of serous sanguinous fluid output, no air leak detected at rest or with cough,laparoscopic surgical incisions intact, clean dry without erythema or edema. No subcutaneous air appreciated along anterior, lateral or posterior chest wall. Respiratory: Breath sounds clear with equal chest rise, no adventitious sounds such as wheezes or rhonchi. GI: abdomen non distended, soft and non-tender, Musculoskeletal: neg muscle weakness, or peripheral edema . Lymphatic: Neg cervical or clavicular lymphadenopathy. Procedures Date of Service Date of Service: 03/31/22 Progress Note: A&P Assessment and plan (1) Loculated pleural effusion: Status: Acute Assessment and Plan: Ms. Hyde is a 62 year old female who has had progressively worsening shortness of breath, fatigue, and cough as well as new right posterior chest wall pain after feeling sick for several weeks.? CT chest shows large loculated right pleural effusion. POD#1 s/p Right VATS decortication. CXR this am showed trace apical pneumothorax with right lower lobe consolidation Keep chest tube to -20Continuous low wall suction at this time 180cc of sanguinous drainage in chest tube atrium. There is no air leak noted with forceful exhalation or cough. Nursing to record output of chest tube q8 hr. Marvin on atrium and I/O's Repeat CXR in am Ambulate 3-4 times daily in hallways, up to recliner chair with all meals Pulmonary toileting, incentive spirometer, cough and deep breathe, acapella Q4 hours Pain management: Continue PRN pain meds as ordered. Oxycodone PRN Tylenol scheduled Dewey catheter should be removed today. Constipation: Bowel regimen as ordered DVT prophylaxis: Heparin SQ, pneumatic compression stockings Pain management * Patient states she is on Oxycodone IR 15mg PO q6h (60mg total per day) at home for chronic low back pain/sciatica. * States she has a pain contract with a provider at [facility]. . (2) Acute respiratory failure with hypoxia: Status: Acute (3) Pneumonia: Status: Inactive (4) Sepsis: Status: Acute Time Spent With Patient Time: Total time managing care of this patient today ____ minutes. Quality Stroke Does the patient have a stroke diagnosis?: No VTE Prior VTE?: No VTE Risk Level:: Medical - moderate - high VTE Device Contraindication: Treatment Not Indicated VTE Drug Contraindication: N/A - Med Ordered
[2022-03-31] MEDS: oxyCODONE HCl Immed Release 5 MG TABLET 10 MG PO (15:27)
[2022-03-31] MEDS: vancomycin HCL 1,000 MG in 0.9 % Sodium Chloride 250 ML 270 MG IV (15:27)
[2022-03-31] MEDS: Azithromycin 500 MG TABLET PO (19:31)
[2022-03-31 21:32] LABS: Vancomycin Random 17.4 mcg/mL (15-20)
[2022-03-31] MEDS: vancomycin HCL 750 MG in 0.9 % Sodium Chloride 250 ML 265 MG IV (22:50)
[2022-04-01] VITALS (8 sets, daily range): BP systolic 95–152; BP diastolic 51–91; PULSE 57–86; RESP 18–20; TEMP 36–37.1; O2SAT 95–98
[2022-04-01] MEDS: Ketorolac Tromethamine 15 MG/ML VIAL IVPUSH ×5 (00:03→23:47)
[2022-04-01] MEDS: Heparin Sodium,Porcine 5,000 UNIT/ML VIAL 5000 UNIT SUBCUT ×4 (00:04→23:46)
[2022-04-01] MEDS: vancomycin HCL 750 MG in 0.9 % Sodium Chloride 250 ML 265 MG IV ×3 (06:32→22:21)
[2022-04-01] MEDS: HYDROmorphone HCl 0.5 MG/0.5 ML SYRINGE IVPUSH ×3 (06:35→22:18)
[2022-04-01 09:57] LABS: Estimated Glomerular Filt Rate > 60
[2022-04-01] MEDS: Pregabalin 75 MG CAPSULE 225 MG PO ×2 (10:00→22:19)
[2022-04-01] MEDS: Acetaminophen 325 MG TABLET 975 MG PO ×3 (10:01→22:20)
[2022-04-01] MEDS: Multivitamin TABLET 1 TAB PO (10:01)
[2022-04-01] MEDS: cefTRIAXone sodium 1 GM in 0.9 % Sodium Chloride 50 ML IV (10:02)
[2022-04-01] MEDS: 0.9 % Sodium Chloride Flush 3 ML SYRINGE IVFLUSH ×3 (10:02→22:21)
[2022-04-01] MEDS: oxyCODONE HCl Immed Release 15 MG TABLET PO (13:48)
--- NOTE | 2022-04-01 14:02 | P.PNTS_ITS ---
Subjective Subjective Date of Service: 04/01/22 Interval history: Patient states she feels better today. States this is the first time she has been able to cough up sputum which has been light yellow in color. States she still has a congested cough but it is looser. Pain has been relatively well controlled, with her main complaint of pain around her chest tube site/incisions. Has been getting OOB to chair and to commode, but has not been ambulating distances in the hallway. Has been using IS and flutter valve. Tolerating PO. WBC was down to 25 yesterday, no repeat this morning. ROS: Denies fever, chills, chest pressure, SOB, lightheadedness, dizziness, difficulty urinating, abdominal pain/distention, nausea. Diagnostics: BMP 04/01/22 09:09 Creatinine 0.64 Impressions Chest X-Ray 04/01/22 06:05 IMPRESSION: Right-sided chest tube in place with no definite pneumothorax seen. Decreasing right basilar opacity. Similar opacity at the left base. Physical Exam Vital Signs: Vital Signs: Last Vital Signs Temp 98.7 F 04/01/22 12:00 Pulse 79 04/01/22 12:00 Resp 20 04/01/22 12:00 BP 117/69 04/01/22 12:00 Pulse Ox 95 04/01/22 12:00 O2 Del Method 04/01/22 12:00 O2 Flow Rate 2 04/01/22 12:00 FiO2 45 03/31/22 16:00 BMI result Body Mass Index 26.5 General: No acute distress, resting comfortably sitting up in recliner chair, well developed. Family member at bedside. Head: Normocephalic, atraumatic, symmetric Eyes: Sclera anicteric, eyelids without edema or erythema, +EOMS intact ENT: Oral mucosa and tongue are moist without lesions or exudates Neck: Soft, supple, symmetric, trachea midline, no crepitus Cardiovascular: Regular rate and rhythm, no murmur/rubs/gallops, BUE and BLE without edema, no calf tenderness bilaterally Respiratory: Lungs CTA B, breathing nonlabored, speaking in full sentences, on oxygen via nasal cannula. No use of accessory muscles. Multiple right sided chest incisions are C/D/I without erythema/drainage/open areas, no crepitus. Right chest tube x 1 to [facility] on -20 suction, ~100cc serosang drainage in last 24 hr, no air leak. Gastrointestinal: Soft, non-tender, non-distended, +normoactive bowel sounds. Skin: Warm and dry throughout, no rashes Neurological: Alert and oriented x 3, no focal neurological deficit noted Psychiatric: no agitation, *appropriate affect Procedures Date of Service Date of Service: 04/01/22 Progress Note: A&P Assessment and plan (1) Loculated pleural effusion: Status: Acute Assessment and Plan: POD# 2 s/p R VATS decortication s/p 1 dose chemical decortication on 03/29/2022 Complicated parapneumonic effusion / pneumonia * Micro from 03/28/2022 positive for GPC (speciation pending). * Micro from surgery on 03/30/2022 negative so far. * Specimens also send for cytology/pathology from OR - pending. * WBC trended down yesterday, not repeated today. Morning labs ordered. Hemodynamically stable and afebrile. * Continue antibiotics: currently on azithromycin, ceftriaxone, vancomycin. * ?ID consult for abx recommendation/duration Chest tube management * 100cc serosang drainage since yesterday. No airleak. * Decreasing opacity and no PTX on CXR. * Will change chest tube to water seal. * Check morning CXR. * Possible removal tomorrow. * Monitor fluid output and for air leak. Monitor for increasing SQ air. Pulmonary toilet * IS * Flutter valve * Early ambulation * Added Mucinex 1200mg PO BID x 5 days to aide with expectoration Activity * Educated patient that she NEEDS to be OOB ambulating in the hallways at least 3-4 times each day. * Educated on the importance of ambulation as adjunct treatment for her severe pneumonia and postoperative recovery. * Patient should be OOB to chair for all meals and throughtout majority of the day. Pain management * On chronic opiate: oxycodone 15mg PO q6h * Doing well on her current inpatient regimen. * Continue Tylenol ATC, Toradol IV ATC, Oxycodone IR 10-15mg PO q4h prn pain scale (2) Sepsis: Status: Acute (3) Acute respiratory failure with hypoxia: Status: Acute (4) Bacterial pneumonia: Status: Acute Time Spent With Patient Time: Total time managing care of this patient today ____ minutes. Quality Stroke Does the patient have a stroke diagnosis?: No VTE Prior VTE?: No VTE Risk Level:: Medical - moderate - high VTE Device Contraindication: Treatment Not Indicated VTE Drug Contraindication: N/A - Med Ordered
[2022-04-01] MEDS: guaiFENesin LA 600 MG TAB.ER.12H 1200 MG PO ×2 (15:31→22:20)
--- NOTE | 2022-04-01 15:39 | HO.PM.IMPN ---
Subjective Subjective Date of Service: 04/01/22 Interval History: Acute hypoxemic respiratory failure secondary to complicated pneumonia has chest tube, status post decortication yesterday. High-flow follow oxygen. Review of Systems Patient is still in significant pain and sore, breathing with less effort Denies any nausea or vomiting or abdominal pain or fever or chills. Physical Exam Vital Signs: Vital Signs: Last Vital Signs Temp 98.7 F 04/01/22 12:00 Pulse 79 04/01/22 12:00 Resp 20 04/01/22 12:00 BP 117/69 04/01/22 12:00 Pulse Ox 95 04/01/22 12:00 O2 Del Method 04/01/22 12:00 O2 Flow Rate 2 04/01/22 12:00 FiO2 45 03/31/22 16:00 BMI result Body Mass Index 26.5 Appearance: Alert.? Oriented X3.? cvs: [id number], [id number] res: air entry fair ,slightly diminshed at bases.has soreness s/p decortication abd: no rebound or guarding ,nt, bs present. ext pulses present , no cyanosis. neuro: axo3 , nonfocal. Objective Data Active Medications Acetaminophen (Acetaminophen 325 Mg Tablet) 975 mg PO Q6H [facility] Last Admin: 04/01/22 10:01 Dose: 975 mg Documented By: VIDYA Albuterol Sulfate (Albuterol Sulfate (0.083%) 2.5 Mg/3 Ml Vial.Neb) 2.5 mg INHALE RQ6H PRN PRN Reason: Wheezing Last Admin: 03/31/22 22:17 Dose: 2.5 mg Documented By: GONZALES Azithromycin (Azithromycin 500 Mg Tablet) 500 mg PO Q24H [facility] Last Admin: 03/31/22 19:31 Dose: 500 mg Documented By: CASTILM Docusate Sodium (Docusate Sodium 100 Mg Capsule) 100 mg PO DAILY PRN PRN Reason: Constipation Guaifenesin (Guaifenesin La 600 Mg Tab.Er.12h) 1,200 mg PO BID [facility] Stop: 04/06/22 14:14 Heparin Sodium (Porcine) (Heparin Sodium,Porcine 5,000 Unit/Ml Vial) 5,000 unit SUBCUT Q8H [facility] Last Admin: 04/01/22 10:01 Dose: 5,000 unit Documented By: VIDYA Hydromorphone HCl (Hydromorphone Hcl 0.5 Mg/0.5 Ml Syringe) 0.5 mg IVPUSH Q3H PRN; Protocol PRN Reason: severe breakthrough pain Last Admin: 04/01/22 06:35 Dose: 0.5 mg Documented By: SCAR Ceftriaxone Sodium 1 gm/ (Sodium Chloride) 50 mls @ 100 mls/hr IV Q24H [facility] Last Infusion: 04/01/22 12:17 Dose: 0 mls/hr Documented By: VIDYA Vancomycin HCl 750 mg/ Sodium (Chloride) 265 mls @ 265 mls/hr IV Q8H [facility] Last Infusion: 04/01/22 10:18 Dose: 0 mls/hr Documented By: VIDYA Ketorolac Tromethamine (Ketorolac Tromethamine 15 Mg/Ml Vial) 15 mg IVPUSH Q8H [facility] Last Admin: 04/01/22 10:08 Dose: 15 mg Documented By: VIDYA Multivitamins/Vitamin C (Multivitamin Tablet) 1 tab PO DAILY [facility] Last Admin: 04/01/22 10:01 Dose: 1 tab Documented By: VIDYA Naloxone HCl (Naloxone Hcl 0.4 Mg/Ml Vial) 0.2 mg IVPUSH Q2M PRN PRN Reason: Excessive sedation or RR < 8 Ondansetron HCl (Ondansetron Hcl 4 Mg/2 Ml Vial) 4 mg IVPUSH Q8H PRN PRN Reason: Nausea and Vomiting Oxycodone HCl (Oxycodone Hcl Immed Release 5 Mg Tablet) 10 mg PO Q4H PRN PRN Reason: Pain, Moderate (Pain Scale 4-6 Last Admin: 03/31/22 15:27 Dose: 10 mg Documented By: FOSTEKSandy Oxycodone HCl (Oxycodone Hcl Immed Release 15 Mg Tablet) 15 mg PO Q4H PRN PRN Reason: Pain, Severe (Pain Scale 7-10) Last Admin: 04/01/22 13:48 Dose: 15 mg Documented By: VIDYA Pharmacy Consult (Consult Rx Perform Med Rec) 1 each MISCELLANE ONCE PRN PRN Reason: Consult order Pharmacy Consult (Consult Rx Vancomycin Dosing) 1 each MISCELLANE DAILY PRN PRN Reason: Consult order Pregabalin (Pregabalin 75 Mg Capsule) 225 mg PO BID [facility] Last Admin: 04/01/22 10:00 Dose: 225 mg Documented By: VIDYA Sodium Chloride (0.9 % Sodium Chloride Flush 3 Ml Syringe) 3 ml IVFLUSH QSHIFT [facility] Last Admin: 04/01/22 10:02 Dose: 3 ml Documented By: VIDYA Sodium Chloride (0.9 % Sodium Chloride Flush 3 Ml Syringe) [facility] Last Admin: 04/01/22 10:02 Dose: Not Given Documented By: VIDYA Non-Admin Reason: Duplicate Order Labs 03/31/22 05:56 04/01/22 09:09 Labs: Laboratory Results - last 24 hr 03/31/22 04/01/22 20:56 09:09 Estim Creat Clear Calc 102.0 Estimated GFR > 60 Random Vancomycin 17.4 Microbiology Microbiology Results: Microbiology 03/30/22 14:55 Gram Stain - Final Pleural Fluid Routine Culture - Preliminary No growth to date. Anaerobic Culture - Preliminary No growth to date. 03/30/22 14:55 Gram Stain - Final Lung - Pleura,Rt Lung Routine Culture - Preliminary No growth to date. Anaerobic Culture - Preliminary No growth to date. 03/28/22 18:30 Gram Stain - Final Pleural Fluid Routine Culture - Preliminary Gram positive cocci Anaerobic Culture - Preliminary Culture in progress. Assessment and Plan (1) Sepsis: Status: Acute (2) Bacterial pneumonia: Status: Acute (3) Acute respiratory failure with hypoxia: Status: Acute Plan 62-year-old female with past medical history of depression anxiety presents the hospital with acute respiratory failure found to have pneumonia # acute? hypoxic respiratory failure sec to sepsis(POA),pneumonia complicated with loculated pleural effusion Cultures from pleural fluid pending.blood cultures neg@48hrs moniter vanco trough 17.4 pleural culture -gram positive cocci ? Patient was initially started on IV antibiotics-on vanco ,s/p chest tube placement (03/28 by pulm) and decortication , continue pain management with IV pain medications, oxygen support for supportive care. Taper oxygen. Ct surgery followin-encouraged to walk, chest x-ray repeat in the morning,? Plan to remove chest tube in a.m.. Id evaluation for for antibiotic management. ?DVT prophylaxis: s/c heparin Inpatient need:? Acute hypoxemic respiratory failure secondary to sepsis/pneumonia, loculated effusion need drainage and IV antibiotics,iv pain meds , vanco trough monitoring as well as renal function and electrolytes monitoring. Time Spent With Patient Time: Total time managing care of this patient today ____ minutes. Quality Stroke Does the patient have a stroke diagnosis?: No VTE Prior VTE?: No VTE Risk Level:: Medical - moderate - high VTE Device Contraindication: Treatment Not Indicated VTE Drug Contraindication: N/A - Med Ordered
[2022-04-01 21:46] LABS: Vancomycin Random 14.1 mcg/mL (15-20)
[2022-04-01] MEDS: oxyCODONE HCl Immed Release 5 MG TABLET 10 MG PO (23:47)
[2022-04-02] VITALS (8 sets, daily range): BP systolic 131–159; BP diastolic 68–90; PULSE 67–94; RESP 16–20; TEMP 36.6–37.1; O2SAT 94–98
[2022-04-02] MEDS: HYDROmorphone HCl 0.5 MG/0.5 ML SYRINGE IVPUSH ×4 (01:54→23:13)
[2022-04-02 06:41] LABS: Hematocrit 28.8 % (37.0-47.0); Hemoglobin 9.2 g/dl (12.0-16.0); Mean Corpuscular HGB Conc 31.9 g/dl (31.0-35.0); Mean Corpuscular Volume 87.8 fL (80.0-98.0); Mean Platelet Volume 9.4 fL (9.4-12.3); Platelet Count 583 X10*3/uL (160-400); Red Blood Count 3.28 X10*6/uL (4.20-5.50); Red Cell Distribution Width 13.9 % (11.0-16.0); White Blood Count 18.2 X10*3/uL (4.8-10.8)
[2022-04-02 07:20] LABS: Anion Gap 11 (12-20); Blood Urea Nitrogen 8 mg/dL (9-16); Calcium 8.2 mg/dL (8.4-10.2); Carbon Dioxide 29 mmol/L (22-29); Chloride 104 mmol/L (96-108); Estimated Glomerular Filt Rate > 60; Glucose Random 113 mg/dL (60-115); Sodium 140 mmol/L (135-145)
[2022-04-02 07:29] LABS: Creatinine Clr Calc Pharmacy 108.8; Estimated Glomerular Filt Rate > 60
[2022-04-02] MEDS: Ketorolac Tromethamine 15 MG/ML VIAL IVPUSH ×2 (08:38→16:06)
[2022-04-02] MEDS: Pregabalin 75 MG CAPSULE 225 MG PO ×2 (08:38→19:51)
[2022-04-02] MEDS: guaiFENesin LA 600 MG TAB.ER.12H 1200 MG PO ×2 (08:39→19:51)
[2022-04-02] MEDS: Multivitamin TABLET 1 TAB PO (08:39)
[2022-04-02] MEDS: vancomycin HCL 750 MG in 0.9 % Sodium Chloride 250 ML 265 MG IV ×2 (08:39→16:06)
[2022-04-02] MEDS: 0.9 % Sodium Chloride Flush 3 ML SYRINGE IVFLUSH ×5 (08:40→23:13)
[2022-04-02] MEDS: Heparin Sodium,Porcine 5,000 UNIT/ML VIAL 5000 UNIT SUBCUT ×2 (08:45→16:06)
[2022-04-02] MEDS: Acetaminophen 325 MG TABLET 975 MG PO ×2 (11:02→23:10)
[2022-04-02] MEDS: oxyCODONE HCl Immed Release 15 MG TABLET PO ×2 (11:02→19:57)
--- NOTE | 2022-04-02 12:52 | P.PNIM_ITS ---
Subjective Subjective Date of Service: 04/02/22 Interval History: Acute hypoxemic respiratory failure secondary to complicated pneumonia has chest tube, status post decortication yesterday. Review of Systems still feels sob ,tired ,cough,soarness Denies any nausea or vomiting or abdominal pain or fever or chills. Physical Exam Vital Signs: Vital Signs: Last Vital Signs Temp 97.8 F 04/02/22 11:16 Pulse 83 04/02/22 11:16 Resp 20 04/02/22 11:16 BP 153/78 H 04/02/22 11:16 Pulse Ox 94 04/02/22 11:16 O2 Del Method 04/02/22 11:16 O2 Flow Rate 2 04/02/22 11:16 FiO2 45 03/31/22 16:00 BMI result Body Mass Index 26.5 Appearance: Alert.? Oriented X3.? cvs: [id number], [id number] res: air entry fair ,slightly diminshed at bases.has soreness s/p decortication abd: no rebound or guarding ,nt, bs present. ext pulses present , no cyanosis. neuro: axo3 , nonfocal. Objective Data Active Medications Acetaminophen (Acetaminophen 325 Mg Tablet) 975 mg PO Q6H [facility] Last Admin: 04/02/22 11:02 Dose: 975 mg Documented By: NITESH Albuterol Sulfate (Albuterol Sulfate (0.083%) 2.5 Mg/3 Ml Vial.Neb) 2.5 mg INHALE RQ6H PRN PRN Reason: Wheezing Last Admin: 03/31/22 22:17 Dose: 2.5 mg Documented By: GONZALES Docusate Sodium (Docusate Sodium 100 Mg Capsule) 100 mg PO DAILY PRN PRN Reason: Constipation Guaifenesin (Guaifenesin La 600 Mg Tab.Er.12h) 1,200 mg PO BID [facility] Stop: 04/06/22 14:14 Last Admin: 04/02/22 08:39 Dose: 1,200 mg Documented By: LARA Heparin Sodium (Porcine) (Heparin Sodium,Porcine 5,000 Unit/Ml Vial) 5,000 unit SUBCUT Q8H [facility] Last Admin: 04/02/22 08:45 Dose: 5,000 unit Documented By: LARA Hydromorphone HCl (Hydromorphone Hcl 0.5 Mg/0.5 Ml Syringe) 0.5 mg IVPUSH Q3H PRN; Protocol PRN Reason: severe breakthrough pain Last Admin: 04/02/22 05:24 Dose: 0.5 mg Documented By: BRINA Vancomycin HCl 750 mg/ Sodium (Chloride) 265 mls @ 265 mls/hr IV Q8H [facility] Last Infusion: 04/02/22 10:11 Dose: 0 mls/hr Documented By: LARA Ketorolac Tromethamine (Ketorolac Tromethamine 15 Mg/Ml Vial) 15 mg IVPUSH Q8H [facility] Last Admin: 04/02/22 08:38 Dose: 15 mg Documented By: LARA Multivitamins/Vitamin C (Multivitamin Tablet) 1 tab PO DAILY [facility] Last Admin: 04/02/22 08:39 Dose: 1 tab Documented By: LARA Naloxone HCl (Naloxone Hcl 0.4 Mg/Ml Vial) 0.2 mg IVPUSH Q2M PRN PRN Reason: Excessive sedation or RR < 8 Ondansetron HCl (Ondansetron Hcl 4 Mg/2 Ml Vial) 4 mg IVPUSH Q8H PRN PRN Reason: Nausea and Vomiting Oxycodone HCl (Oxycodone Hcl Immed Release 5 Mg Tablet) 10 mg PO Q4H PRN PRN Reason: Pain, Moderate (Pain Scale 4-6 Last Admin: 04/01/22 23:47 Dose: 10 mg Documented By: BRINA Oxycodone HCl (Oxycodone Hcl Immed Release 15 Mg Tablet) 15 mg PO Q4H PRN PRN Reason: Pain, Severe (Pain Scale 7-10) Last Admin: 04/02/22 11:02 Dose: 15 mg Documented By: INTESH Pharmacy Consult (Consult Rx Perform Med Rec) 1 each MISCELLANE ONCE PRN PRN Reason: Consult order Pharmacy Consult (Consult Rx Vancomycin Dosing) 1 each MISCELLANE DAILY PRN PRN Reason: Consult order Pregabalin (Pregabalin 75 Mg Capsule) 225 mg PO BID [facility] Last Admin: 04/02/22 08:38 Dose: 225 mg Documented By: LARA Sodium Chloride (0.9 % Sodium Chloride Flush 3 Ml Syringe) 3 ml IVFLUSH QSHIFT [facility] Last Admin: 04/02/22 08:40 Dose: 3 ml Documented By: LARA Sodium Chloride (0.9 % Sodium Chloride Flush 3 Ml Syringe) 3 ml IVFLUSH QSHIFT [facility] Last Admin: 04/02/22 08:40 Dose: Not Given Documented By: LARA Non-Admin Reason: Previously Administered Labs 04/02/22 06:05 04/02/22 06:05 Labs: Laboratory Results - last 24 hr 04/01/22 04/02/22 04/02/22 20:50 06:05 06:05 MCV 87.8 MCH 28.0 MCHC 31.9 RDW 13.9 Plt Count 583 H MPV 9.4 Absolute Nucleated RBC 0.000 Nucleated RBC % (auto) 0.0 Anion Gap 11 L Estim Creat Clear Calc 107.0 Estimated GFR > 60 Random Glucose 113 Calcium 8.2 L Random Vancomycin 14.1 L 04/02/22 06:05 MCV MCH MCHC RDW Plt Count MPV Absolute Nucleated RBC Nucleated RBC % (auto) Anion Gap Estim Creat Clear Calc 108.8 Estimated GFR > 60 Random Glucose Calcium Random Vancomycin Microbiology Microbiology Results: Microbiology 03/28/22 18:30 Gram Stain - Final Pleural Fluid Routine Culture - Preliminary Gram positive cocci Anaerobic Culture - Final 03/30/22 14:55 Gram Stain - Final Lung - Pleura,Rt Lung Routine Culture - Final No growth after 2 days Anaerobic Culture - Preliminary No growth to date. 03/30/22 14:55 Gram Stain - Final Pleural Fluid Routine Culture - Final No growth after 2 days Anaerobic Culture - Preliminary No growth to date. 03/27/22 19:23 Blood Culture - Final Blood - Venous No growth after 5 days. 03/27/22 18:54 Blood Culture - Final Blood - Venous No growth after 5 days. Assessment and Plan (1) Loculated pleural effusion: Status: Acute (2) Bacterial pneumonia: Status: Acute (3) Acute respiratory failure with hypoxia: Status: Acute Plan 62-year-old female with past medical history of depression anxiety presents the hospital with acute respiratory failure found to have pneumonia # acute? hypoxic respiratory failure sec to sepsis(POA),pneumonia complicated with loculated pleural effusion ,s/p chest tube placement (03/28 by pulm) and decortication sepsis resolved ,cxr-mild increase opacity right side pleural culture -gram positive cocci ?,blood cultures neg@48hrs moniter vanco trough 14.1 continue IV antibiotics-on vanco?continue pain management with IV pain medications, oxygen support for supportive care.? Taper oxygen. Ct surgery followin-encouraged to walk, chest x-ray repeat -mild increase right side opacity Id evaluation for for antibiotic management. thoracic surgery follow up ?DVT prophylaxis: s/c heparin Inpatient need:? Acute hypoxemic respiratory failure secondary to sepsis/pneumonia, loculated effusion need drainage and IV antibiotics,iv pain meds , vanco trough monitoring as well as renal function thoracic surgery -for chest tube/decortication and electrolytes monitoring. Time Spent With Patient Time: Total time managing care of this patient today ____ minutes. Quality Stroke Does the patient have a stroke diagnosis?: No VTE Prior VTE?: No VTE Risk Level:: Medical - moderate - high VTE Device Contraindication: Treatment Not Indicated VTE Drug Contraindication: N/A - Med Ordered
--- NOTE | 2022-04-02 13:49 | P.PNTS_ITS ---
Subjective Subjective Date of Service: 04/02/22 Interval history: Patient did not sleep much last night, so she feels tired today. Otherwise her pain has been fairly well controlled on current regimen. Continues to have a cough and is bringing up phlegm. Has been tolerating a diet, ambulating to the bathroom, and voiding. She has been unable to wean off of the oxygen yet. States she ambulated herself to the bathroom earlier without the oxygen and did get fairly SOB when she got back to bed. Denies any fever, chills, lightheadedness, dizziness, chest pain/pressure, SOB @ rest. Diagnostics: Short CBC 04/02/22 Range/Units 06:05 WBC 18.2 H (4.8-10.8) X10*3/uL Hgb 9.2 L (12.0-16.0) g/dl Hct 28.8 L (37.0-47.0) % Plt Count 583 H (160-400) X10*3/uL BMP 04/02/22 04/02/22 06:05 06:05 Sodium 140 Potassium 4.0 Chloride 104 Carbon Dioxide 29 BUN 8 L Creatinine 0.61 0.60 Calcium 8.2 L Impressions Chest X-Ray 04/02/22 06:28 IMPRESSION: Increased right basilar airspace opacity which could represent atelectasis or pneumonia. Elevated right hemidiaphragm. No pneumothorax. Name: Sheela Hyde Age/Sex: 62/F : 1960 Unit#: [id number] Attend Dr: Gen Goodwin MD Re03/27/22 Status: ADM IN Location: [facility] [id number] Disch: N Specimen: [id number] Collected: 03/28/22 Status: RES Req#: [id number] Received: 03/28/22 Source: Pleural Fl Sp Desc: Subm Dr: Gen Goodwin MD Ordered: Anaerobic Cult, Routine Cult GS Procedure Result Verified Site Gram stain Final 03/29/22 Gram stain results: 2+ polys 4+ red blood cells No organisms seen Routine Culture Preliminary 04/01/22 Organism 1 Gram positive cocci Quantity 1+ Results of GRAM POSITIVE COCCI IN PLEURAL FLUID called to and read back by on 03/31/22 at 1238 by ALEXIS. Anaerobic Culture Final 04/02/22-933 Report No anaerobes isolated. Physical Exam Vital Signs: Vital Signs: Last Vital Signs Temp 97.8 F 04/02/22 11:16 Pulse 83 04/02/22 11:16 Resp 20 04/02/22 11:16 BP 153/78 H 04/02/22 11:16 Pulse Ox 94 04/02/22 11:16 O2 Del Method 04/02/22 11:16 O2 Flow Rate 2 04/02/22 11:16 FiO2 45 03/31/22 16:00 BMI result Body Mass Index 26.5 General: No acute distress, resting comfortably in bed, well developed. Family member at bedside. Head: Normocephalic, atraumatic, symmetric Eyes: Sclera anicteric, eyelids without edema or erythema ENT: Oral mucosa and tongue are moist without lesions or exudates Neck: Soft, supple, symmetric, trachea midline, no crepitus Cardiovascular: Regular rate and rhythm, no murmur/rubs/gallops, BUE and BLE without edema, no calf tenderness bilaterally Respiratory: Lungs CTA B, breathing nonlabored, speaking in full sentences, on oxygen via nasal cannula. No use of accessory muscles. Multiple right sided chest incisions are C/D/I without erythema/drainage/open areas, no crepitus. Right chest tube x 1 to [facility] on water seal, ~50cc serosang drainage in last 24 hr, no air leak. Gastrointestinal: Soft, non-tender, non-distended, +normoactive bowel sounds. Skin: Warm and dry throughout, no rashes Neurological: Alert and oriented x 3, no focal neurological deficit noted Psychiatric: no agitation, appropriate affect Procedures Date of Service Date of Service: 04/02/22 Progress Note: A&P Assessment and plan (1) Loculated pleural effusion: Status: Acute Assessment and Plan: POD#3 s/p R VATS decortication s/p 1 dose chemical decortication on 03/29/2022 Complicated parapneumonic effusion / pneumonia * Micro from 03/28/2022 positive for GPC (speciation pending). * Micro from surgery on 03/30/2022 negative so far. * Specimens also send for cytology/pathology from OR (pleural fluid and pleural peel) - pending. * Leukocytosis improved further today, now 18. * Continue antibiotics: currently on vancomycin. Azithromycin/ceftriaxone sto pped. * ID consult pending for abx recommendation/duration Chest tube management * Only 50cc of serosang drainage since yesterday. CXR today shows some slight increased opacities, however likely intraparenchymal and not effusion. * Right chest tube removed in its entirety without difficulty. Occlusive dressing placed over the site and should remain in place untouched x 48 hours. May be removed on 04/04/22 around lunch time and then left open to air. * No need for further chest imaging after chest tube removal unless clinically indicated. Pulmonary toilet * IS * Flutter valve * Early ambulation * Continue Mucinex 1200mg PO BID x 5 days to aide with expectoration Activity * Educated patient that she NEEDS to be OOB ambulating in the hallways at least 3-4 times each day. * Educated on the importance of ambulation as adjunct treatment for her severe pneumonia and postoperative recovery. * Patient should be OOB to chair for all meals and throughtout majority of the day. Pain management * On chronic opiate: oxycodone 15mg PO q6h * Doing well on her current inpatient regimen. * Continue Tylenol ATC and Oxycodone IR 10-15mg PO q4h prn pain scale. * Toradol IV will stop tonight - 3 days. Thoracic surgery will sign off at this time. Please call us back with any questions or concerns. Discharge instructions placed within discharge tab and a postop appt in the office for 2 weeks will be made tomorrow once the office staff returns. Case discussed with Dr. Monterroso. (2) Sepsis: Status: Acute (3) Acute respiratory failure with hypoxia: Status: Acute (4) Bacterial pneumonia: Status: Acute Time Spent With Patient Time: Total time managing care of this patient today ____ minutes. Quality Stroke Does the patient have a stroke diagnosis?: No VTE Prior VTE?: No VTE Risk Level:: Medical - moderate - high VTE Device Contraindication: Treatment Not Indicated VTE Drug Contraindication: N/A - Med Ordered
[2022-04-02] MEDS: Benzonatate 100 MG CAPSULE 200 MG PO (23:10)
[2022-04-02] MEDS: vancomycin HCL 1,000 MG in 0.9 % Sodium Chloride 250 ML 270 MG IV (23:11)
[2022-04-03] VITALS (7 sets, daily range): BP systolic 149–188; BP diastolic 79–92; PULSE 82–92; RESP 20–22; TEMP 36.7–37.3; O2SAT 92–98
[2022-04-03] MEDS: Heparin Sodium,Porcine 5,000 UNIT/ML VIAL 5000 UNIT SUBCUT ×4 (00:20→23:12)
[2022-04-03] MEDS: Acetaminophen 325 MG TABLET 975 MG PO ×3 (03:53→23:10)
[2022-04-03] MEDS: oxyCODONE HCl Immed Release 5 MG TABLET 10 MG PO ×3 (03:54→18:39)
[2022-04-03] MEDS: vancomycin HCL 1,000 MG in 0.9 % Sodium Chloride 250 ML 270 MG IV (06:31)
[2022-04-03] MEDS: HYDROmorphone HCl 0.5 MG/0.5 ML SYRINGE IVPUSH ×4 (06:33→20:15)
[2022-04-03 07:12] LABS: Creatinine Clr Calc Pharmacy 120.9; Estimated Glomerular Filt Rate > 60
--- NOTE | 2022-04-03 08:58 | P.PNIM_ITS ---
Subjective Subjective Date of Service: 04/03/22 Interval History: Acute hypoxemic respiratory failure secondary to complicated pneumonia has chest tube, status post decortication-s/p chest tube removal yesterday Review of Systems Denies any nausea or vomiting or abdominal pain or fever or chills. Physical Exam Vital Signs: Vital Signs: Last Vital Signs Temp 98.1 F 04/03/22 07:54 Pulse 82 04/03/22 07:54 Resp 20 04/03/22 07:54 BP 149/88 H 04/03/22 07:54 Pulse Ox 96 04/03/22 07:54 O2 Del Method 04/03/22 07:54 O2 Flow Rate 2 04/03/22 07:54 FiO2 45 03/31/22 16:00 BMI result Body Mass Index 26.5 Appearance: Alert.? Oriented X3.? cvs: rrr, [id number] res: air entry fair ,slightly diminshed at bases.has soreness s/p decortication abd: no rebound or guarding ,nt, bs present. ext pulses present , no cyanosis. neuro: axo3 , nonfocal. Objective Data Active Medications Acetaminophen (Acetaminophen 325 Mg Tablet) 975 mg PO Q6H [facility] Last Admin: 04/03/22 03:53 Dose: 975 mg Documented By: DAKOTAH Albuterol Sulfate (Albuterol Sulfate (0.083%) 2.5 Mg/3 Ml Vial.Neb) 2.5 mg INHALE RQ6H PRN PRN Reason: Wheezing Last Admin: 03/31/22 22:17 Dose: 2.5 mg Documented By: MATOSLU Benzonatate (Benzonatate 100 Mg Capsule) 200 mg PO TID PRN PRN Reason: Cough Last Admin: 04/02/22 23:10 Dose: 200 mg Documented By: DAKOTAH Docusate Sodium (Docusate Sodium 100 Mg Capsule) 100 mg PO DAILY PRN PRN Reason: Constipation Guaifenesin (Guaifenesin La 600 Mg Tab.Er.12h) 1,200 mg PO BID [facility] Stop: 04/06/22 14:14 Last Admin: 04/02/22 19:51 Dose: 1,200 mg Documented By: DAKOTAH Heparin Sodium (Porcine) (Heparin Sodium,Porcine 5,000 Unit/Ml Vial) 5,000 unit SUBCUT Q8H [facility] Last Admin: 04/03/22 00:20 Dose: 5,000 unit Documented By: DAKOTAH Hydromorphone HCl (Hydromorphone Hcl 0.5 Mg/0.5 Ml Syringe) 0.5 mg IVPUSH Q3H PRN; Protocol PRN Reason: severe breakthrough pain Last Admin: 04/03/22 06:33 Dose: 0.5 mg Documented By: DAKOTAH Vancomycin HCl 1,000 mg/ (Sodium Chloride) 270 mls @ 270 mls/hr IV Q8H [facility] Last Admin: 04/03/22 06:31 Dose: 270 mls/hr Documented By: DAKOTAH Multivitamins/Vitamin C (Multivitamin Tablet) 1 tab PO DAILY [facility] Last Admin: 04/02/22 08:39 Dose: 1 tab Documented By: LARA Naloxone HCl (Naloxone Hcl 0.4 Mg/Ml Vial) 0.2 mg IVPUSH Q2M PRN PRN Reason: Excessive sedation or RR < 8 Ondansetron HCl (Ondansetron Hcl 4 Mg/2 Ml Vial) 4 mg IVPUSH Q8H PRN PRN Reason: Nausea and Vomiting Oxycodone HCl (Oxycodone Hcl Immed Release 5 Mg Tablet) 10 mg PO Q4H PRN PRN Reason: Pain, Moderate (Pain Scale 4-6 Last Admin: 04/03/22 03:54 Dose: 10 mg Documented By: DAKOTAH Oxycodone HCl (Oxycodone Hcl Immed Release 15 Mg Tablet) 15 mg PO Q4H PRN PRN Reason: Pain, Severe (Pain Scale 7-10) Last Admin: 04/02/22 19:57 Dose: 15 mg Documented By: DAKOTAH Pharmacy Consult (Consult Rx Perform Med Rec) 1 each MISCELLANE ONCE PRN PRN Reason: Consult order Pharmacy Consult (Consult Rx Vancomycin Dosing) 1 each MISCELLANE DAILY PRN PRN Reason: Consult order Pregabalin (Pregabalin 75 Mg Capsule) 225 mg PO BID [facility] Last Admin: 04/02/22 19:51 Dose: 225 mg Documented By: DAKOTAH Sodium Chloride (0.9 % Sodium Chloride Flush 3 Ml Syringe) 3 ml IVFLUSH QSHIFT [facility] Last Admin: 04/02/22 23:13 Dose: 3 ml Documented By: DAKOTAH Sodium Chloride (0.9 % Sodium Chloride Flush 3 Ml Syringe) 3 ml IVFLUSH QSHIFT [facility] Last Admin: 04/02/22 23:13 Dose: 3 ml Documented By: DAKOTAH Labs 04/02/22 06:05 04/03/22 06:05 Labs: Laboratory Results - last 24 hr 04/02/22 04/03/22 21:27 06:05 Estim Creat Clear Calc 120.9 Estimated GFR > 60 Random Vancomycin 13.0 L Microbiology Microbiology Results: Microbiology 03/30/22 14:55 Gram Stain - Final Lung - Pleura,Rt Lung Routine Culture - Final No growth after 2 days Anaerobic Culture - Preliminary No growth to date. 03/30/22 14:55 Gram Stain - Final Pleural Fluid Routine Culture - Final No growth after 2 days Anaerobic Culture - Preliminary No growth to date. 03/28/22 18:30 Gram Stain - Final Pleural Fluid Routine Culture - Final Streptococcus intermedius Anaerobic Culture - Final Assessment and Plan (1) Loculated pleural effusion: Status: Acute (2) Bacterial pneumonia: Status: Acute (3) Acute respiratory failure with hypoxia: Status: Acute Plan 62-year-old female with past medical history of depression anxiety presents the hospital with acute respiratory failure found to have pneumonia # acute? hypoxic respiratory failure sec to sepsis(POA),pneumonia complicated with loculated pleural effusion ,s/p chest tube placement (03/28 by pulm) and decortication sepsis resolved ,cxr-mild increase opacity right side pleural culture -strep intermedius senstive to ceftriaxone ,blood cultures neg@48hrs moniter vanco trough 13 yesterday continue IV antibiotics-dc vanco ,since strep intermedius senstive to ceftriaxone( switched to ceftriaxone ,dc vanco) ,?continue pain management with IV pain medications, oxygen support for supportive care.? Taper oxygen. Ct surgery followin-encouraged to walk, chest x-ray repeat -mild increase right side opacity yesterday,chest tube removed . Id evaluation for for antibiotic management, added cxr for mornin. thoracic surgery -instruction added to plannin ?DVT prophylaxis: s/c heparin Inpatient need:? Acute hypoxemic respiratory failure secondary to sepsis/pneumonia, loculated effusion need drainage and IV antibiotics,iv pain meds , vanco trough monitoring as well as renal function thoracic surgery -for chest tube/decortication and electrolytes monitoring. Time Spent With Patient Time: Total time managing care of this patient today ____ minutes. Quality Stroke Does the patient have a stroke diagnosis?: No VTE Prior VTE?: No VTE Risk Level:: Medical - moderate - high VTE Device Contraindication: Treatment Not Indicated VTE Drug Contraindication: N/A - Med Ordered
[2022-04-03] MEDS: Pregabalin 75 MG CAPSULE 225 MG PO ×2 (09:32→20:15)
[2022-04-03] MEDS: guaiFENesin LA 600 MG TAB.ER.12H 1200 MG PO ×2 (09:32→20:15)
[2022-04-03] MEDS: Multivitamin TABLET 1 TAB PO (09:32)
[2022-04-03] MEDS: cefTRIAXone sodium 2 GM in 0.9 % Sodium Chloride 50 ML IV (09:33)
[2022-04-03] MEDS: 0.9 % Sodium Chloride Flush 3 ML SYRINGE IVFLUSH ×4 (09:36→23:12)
--- NOTE | 2022-04-03 13:14 | MHC.CM.PN ---
per rounds per rounds pt to have chest tube out may need a picc line ,cm will continue to follow
--- NOTE | 2022-04-03 14:00 | CA_ITS ---
Transthoracic Echocardiogram Patient (Last, First, Middle): Sheela Hyde, Gender: Female Date of : 1960 Age: 62 Procedure Date: 04/03/2022 Procedure Type: Transthoracic Echocardiogram [place] [facility] [place] Height: 172.72 cm Weight: 78.93 kg BSA: 1.93 m2 Heart Rate: bpm BP: 159 / 89 mmHg Nurse Assessor: Referring MD: Gen Goodwin MD Zig Zag Stitcher: Marquis Carrillo MD Symptoms: bacteremia Study Quality: Fair ECG Rhythm: Sinus Conclusions: - 1. Normal LV systolic and diastolic function 2. Normal cardiac valvular Doppler 3. Normal RV systolic pressure 4. No gross pericardial effusion 5. No obvious vegetations seen on this study Findings Left Ventricle Normal left ventricular size, thickness, and systolic function. The visually estimated ejection fraction is between 60-65%. Spectral Doppler is indicative of a normal filling pattern. Right Ventricle Normal right ventricular cavity size and systolic function. Atria The left atrium is normal in size. Interatrial shunt cannot be excluded. The right atrium is normal in size. Aortic Valve The aortic valve structure and function is likely normal. There is no aortic valve stenosis. There is no aortic valve regurgitation. Mitral Valve Likely normal mitral valve structure and function. There is no mitral valve regurgitation. There is no mitral valve stenosis. Pulmonic Valve The pulmonic valve was not well visualized. Tricuspid Valve The tricuspid valve was not well visualized. There is trace tricuspid valve regurgitation. The right ventricular systolic pressure is normal. Normal right atrial pressure. There is no evidence of pulmonary hypertension. Great Vessels All visible segments of the aorta are normal in size. The pulmonary artery was not well visualized. Venous The inferior vena cava is normal in size and collapses greater than 50% with inspiration. Pericardium/Pleural The pericardium was not well visualized. Prior Study Comparison No prior study available for comparison. Recommendations, Care & Conclusions Consider a ASHLEY if clinically appropriate. Measurements 2D Linear Measurements IVSd: 1.23 0.6-0.9/0.6-1.0 cm LVIDd: 5.22 3.9-5.3/4.2-5.9 cm LVIDd Index: 2.70 2.4-3.2/2.2-3.1 cm/m2 LVIDs: 2.87 2.0-3.6 cm LVPWd: 1.21 0.7-1.1 cm Ao Root: 3.60 2.1-3.5 cm LA Diam: 4.00 2.7-3.8/3.0-4.0 cm LAIDs Index: 2.07 1.5-2.3 cm/m2 LV Mass: 319.51 67-162/88-224 g LV Mass Index: 165.55 43-95/49-115 g/m2 LVOT Diam: 2.40 3.0+(-)1.3 cm Mitral Valve MV Pk E: 0.80 MV PK A: 0.73 MV Decel Time: 123.00 E/A: 1.10 E'Lateral: 14.80 E'Medial: 7.07 E/E' Med: 11.30 E/E' Lat: 5.40 PHT: 36.00 MVA PHT: 6.11 Decel Milam: 6.46 Aortic Valve AoV Pk Myke: 2.10 AoV Mn Myke: 1.31 AoV VTI: 0.45 AoV Pk Grad: 18.00 Aov Mn Grad: 8.00 CHASE Cont.VTI: 3.34 LVOT LVOT Pk Myke: 1.67 LVOT Mn Myke: 1.03 LVOT VTI: 0.33 LVOT Pk Grad: 11.00 LVOT Mn Grad: 5.00 LVOT Diam: 2.40 LVOT Area: 4.52 Diastolic Function MV Pk E: 0.80 MV Pk A: 0.73 E/A: 1.10 E'Medial: 7.07 E/E' Med: 11.30 E' Laterial: 14.80 E/E' Lat: 5.40 Right Ventricle TAPSE (mm): 38.00 TVS' Myke: 19.00 Tricuspid Valve TR Pk Myke: 2.10 TR Pk Grad: 18.00 RA Press: 3.00 RVSP: 21.00 Great Vessels Aorta Ao Root-2D: 3.60 2.0-3.7 cm Ao Asc: 3.50 2.1-3.4 cm Pulmonary Valve PV Pk Myke: 1.41 Peak PV Grad: 8.00 Updated in Other Vendor System with Status of Final Marquis Carrillo MD electronically signed on 04/03/2022 4:29:08 PM with status of Final
[2022-04-03] MEDS: Benzonatate 100 MG CAPSULE 200 MG PO (15:52)
--- NOTE | 2022-04-03 16:07 | P.CNID_ITS ---
History of Present Illness Data of Consult Service Date: 04/03/22 Requesting physician: eGn Goodwin Primary Care Provider: Demetrice Keene MD HPI Reason for consult: strep intermedius pleural fluid,shortness of breath She presents to hospital with shortness of breath and cough worsening fo last three days. She was ill around [place] and got worse and then better. She had pleural effusion strep intermedius. She is not using oxygen at this time Review of Systems Review of Systems: Yes all other systems are reviewed and are negative [facility] Past Medical History Medical History Anxiety Basal cell carcinoma Depression DJD (degenerative joint disease) Functional capacity: independent ambulation Family History Family History Father Cancer Mother HTN (hypertension) Family history: reviewed and not pertinent Surgical History Surgical History History of basal cell carcinoma excision History of chest tube placement History of lung surgery Social History Social History Household Members: None Housing: Apartment Do you presently have visiting nurse or other home services: No Patient Tobacco Use Status: Never used Tobacco Tobacco use type: Cigarette Cigarette Packs Per Day: 1 Cigarettes Per Day: 20.0 e-Cigarette/Vaping Use: Former Use Second Hand Smoke Exposure: No service: No Current occupational status: employed Meds Allergies Allergy/AdvReac Type Severity Reaction Status Date / Time sulfamethoxazole Allergy Intermediate Rash Verified 03/28/22 16:52 Active Medications: Current Medications Acetaminophen (Acetaminophen 325 Mg Tablet) 975 mg PO Q6H [facility] Last Admin: 04/03/22 15:48 Dose: Not Given Albuterol Sulfate (Albuterol Sulfate (0.083%) 2.5 Mg/3 Ml Vial.Neb) 2.5 mg INHALE RQ6H PRN PRN Reason: Wheezing Last Admin: 03/31/22 22:17 Dose: 2.5 mg Benzonatate (Benzonatate 100 Mg Capsule) 200 mg PO TID PRN PRN Reason: Cough Last Admin: 04/03/22 15:52 Dose: 200 mg Docusate Sodium (Docusate Sodium 100 Mg Capsule) 100 mg PO DAILY PRN PRN Reason: Constipation Guaifenesin (Guaifenesin La 600 Mg Tab.Er.12h) 1,200 mg PO BID [facility] Stop: 04/06/22 14:14 Last Admin: 04/03/22 09:32 Dose: 1,200 mg Heparin Sodium (Porcine) (Heparin Sodium,Porcine 5,000 Unit/Ml Vial) 5,000 unit SUBCUT Q8H [facility] Last Admin: 04/03/22 15:54 Dose: 5,000 unit Hydromorphone HCl (Hydromorphone Hcl 0.5 Mg/0.5 Ml Syringe) 0.5 mg IVPUSH Q3H PRN; Protocol PRN Reason: severe breakthrough pain Last Admin: 04/03/22 15:53 Dose: 0.5 mg Ceftriaxone Sodium 2 gm/ (Sodium Chloride) 50 mls @ 100 mls/hr IV Q24H [facility] Last Infusion: 04/03/22 10:32 Dose: Infused Multivitamins/Vitamin C (Multivitamin Tablet) 1 tab PO DAILY [facility] Last Admin: 04/03/22 09:32 Dose: 1 tab Naloxone HCl (Naloxone Hcl 0.4 Mg/Ml Vial) 0.2 mg IVPUSH Q2M PRN PRN Reason: Excessive sedation or RR < 8 Ondansetron HCl (Ondansetron Hcl 4 Mg/2 Ml Vial) 4 mg IVPUSH Q8H PRN PRN Reason: Nausea and Vomiting Oxycodone HCl (Oxycodone Hcl Immed Release 5 Mg Tablet) 10 mg PO Q4H PRN PRN Reason: Pain, Moderate (Pain Scale 4-6 Last Admin: 04/03/22 12:09 Dose: 10 mg Oxycodone HCl (Oxycodone Hcl Immed Release 15 Mg Tablet) 15 mg PO Q4H PRN PRN Reason: Pain, Severe (Pain Scale 7-10) Last Admin: 04/02/22 19:57 Dose: 15 mg Pharmacy Consult (Consult Rx Perform Med Rec) 1 each MISCELLANE ONCE PRN PRN Reason: Consult order Pharmacy Consult (Consult Rx Vancomycin Dosing) 1 each MISCELLANE DAILY PRN PRN Reason: Consult order Pregabalin (Pregabalin 75 Mg Capsule) 225 mg PO BID [facility] Last Admin: 04/03/22 09:32 Dose: 225 mg Sodium Chloride (0.9 % Sodium Chloride Flush 3 Ml Syringe) 3 ml IVFLUSH [facility] Last Admin: 04/03/22 15:55 Dose: 3 ml Sodium Chloride (0.9 % Sodium Chloride Flush 3 Ml Syringe) 3 ml IVFLUSH [facility] Last Admin: 04/03/22 15:56 Dose: Not Given Home Medications Medication Instructions Recorded Confirmed Last Taken Type apple cider vinegar 300 mg tablet 300 mg PO DAILY 03/27/22 03/27/22 Unknown Hist ory claudia (Zingiber officinalis) 250 250 mg PO DAILY 03/27/22 03/27/22 Unknown History mg capsule (claudia extract) multivitamin 1 tab PO DAILY 03/27/22 03/27/22 Unknown History oxycodone 15 mg tablet 1 tab PO Q6H PRN severe pain 03/27/22 03/27/22 Unknown History pregabalin 225 mg capsule 1 cap PO BID 03/27/22 03/27/22 Unknown History turmeric root extract 500 mg 500 mg PO DAILY 03/27/22 03/27/22 Unknown History capsule Physical Exam Vital Signs: Vital Signs: Last Vital Signs Temp 99.1 F 04/03/22 15:00 Pulse 90 04/03/22 15:00 Resp 20 04/03/22 15:00 BP 152/82 H 04/03/22 15:00 Pulse Ox 93 04/03/22 15:00 O2 Del Method 04/03/22 15:00 O2 Flow Rate 2 04/03/22 11:30 FiO2 45 03/31/22 16:00 BMI result Body Mass Index 26.5 Results Labs 04/02/22 06:05 04/03/22 06:05 Labs: BMP 04/03/22 06:05 Creatinine 0.54 Microbiology Microbiology Results: Microbiology 03/30/22 14:55 Lung - Pleura,Rt Lung Fungal Identification - Preliminary No growth to date. 03/30/22 14:55 Pleural Fluid Fungal Identification - Preliminary No growth to date. 03/30/22 14:55 Lung - Pleura,Rt Lung Gram Stain - Final 03/30/22 14:55 Lung - Pleura,Rt Lung Routine Culture - Final No growth after 2 days 03/30/22 14:55 Lung - Pleura,Rt Lung Anaerobic Culture - Preliminary No growth to date. 03/30/22 14:55 Pleural Fluid Gram Stain - Final 03/30/22 14:55 Pleural Fluid Routine Culture - Final No growth after 2 days 03/30/22 14:55 Pleural Fluid Anaerobic Culture - Preliminary No growth to date. 03/28/22 18:30 Pleural Fluid Gram Stain - Final 03/28/22 18:30 Pleural Fluid Routine Culture - Final Streptococcus intermedius 03/28/22 18:30 Pleural Fluid Anaerobic Culture - Final 03/27/22 19:23 Blood - Venous Blood Culture - Final No growth after 5 days. 03/27/22 18:54 Blood - Venous Blood Culture - Final No growth after 5 days. Assessment and Plan (1) Sepsis: Status: Acute She has strep intermedius pleural fluid She has improvement in pneumonia and is not on oxygen (2) Loculated pleural effusion: Status: Acute (3) Bacterial pneumonia: Status: Acute Plan Ceftriaxone for three weeks IV 2 g daily. Check echo evaluate endocarditis. Follow CXR next week. Time Spent With Patient Time: Total time managing care of this patient today ____ minutes.
[2022-04-03] MEDS: Labetalol HCL 100 MG/20 ML VIAL 10 MG IVPUSH (20:14)
[2022-04-03] MEDS: ALPRAZolam 0.5 MG TABLET PO (23:10)
[2022-04-04] VITALS: BP 159/76; PULSE 85; RESP 20; TEMP 36.3; O2SAT 94
--- NOTE | 2022-04-04 02:18 | PC.NURSE ---
report received from day RN, medical device per MAY. pt c/o feeling very anxious, notifed and new orders placed for one time dose of xanax with good effect per pt, medical device per MAY. Pt noted to desat to 85% while sleeping placed on 1L NC, pt satting 92-94%. Pt refusing bed alarm, encouraged to call for assistance. Call rodriguez within reach, hourly rounding, safety precautions in place.
[2022-04-04 04:00] VITALS: BP 151/78; PULSE 80; RESP 20; TEMP 36.6; O2SAT 92
[2022-04-04] MEDS: Acetaminophen 325 MG TABLET 975 MG PO ×3 (04:46→20:33)
[2022-04-04 06:55] LABS: Hemoglobin 10.5 g/dl (12.0-16.0); Mean Corpuscular HGB Conc 32.8 g/dl (31.0-35.0); Mean Corpuscular Hemoglobin 27.9 pg (27.0-33.0); Mean Corpuscular Volume 85.1 fL (80.0-98.0); Mean Platelet Volume 8.9 fL (9.4-12.3); Platelet Count 715 X10*3/uL (160-400); Red Blood Count 3.76 X10*6/uL (4.20-5.50); Red Cell Distribution Width 13.5 % (11.0-16.0); White Blood Count 13.6 X10*3/uL (4.8-10.8)
[2022-04-04 07:02] LABS: Creatinine Clr Calc Pharmacy 105.3; Estimated Glomerular Filt Rate > 60
[2022-04-04 07:03] LABS: Anion Gap 17 (12-20); Blood Urea Nitrogen 6 mg/dL (9-16); Carbon Dioxide 32 mmol/L (22-29); Chloride 98 mmol/L (96-108); Creatinine Clr Calc Pharmacy 105.3; Estimated Glomerular Filt Rate > 60; Glucose Random 118 mg/dL (60-115); Potassium 3.7 mmol/L (3.3-5.1); Sodium 143 mmol/L (135-145)
[2022-04-04 08:00] VITALS: BP 158/90; PULSE 91; RESP 20; TEMP 36.6; O2SAT 94
[2022-04-04] MEDS: HYDROmorphone HCl 0.5 MG/0.5 ML SYRINGE IVPUSH ×4 (09:37→20:35)
[2022-04-04] MEDS: 0.9 % Sodium Chloride Flush 3 ML SYRINGE IVFLUSH ×3 (09:38→20:36)
[2022-04-04] MEDS: Heparin Sodium,Porcine 5,000 UNIT/ML VIAL 5000 UNIT SUBCUT ×2 (09:39→16:42)
[2022-04-04] MEDS: guaiFENesin LA 600 MG TAB.ER.12H 1200 MG PO ×2 (09:39→20:33)
[2022-04-04] MEDS: Multivitamin TABLET 1 TAB PO (09:39)
[2022-04-04] MEDS: Pregabalin 75 MG CAPSULE 225 MG PO ×2 (09:39→20:34)
[2022-04-04] MEDS: cefTRIAXone sodium 2 GM in 0.9 % Sodium Chloride 50 ML IV (09:39)
[2022-04-04 12:00] VITALS: BP 158/89; PULSE 78; RESP 20; TEMP 36.4; O2SAT 97
[2022-04-04 15:38] VITALS: BP 137/85; PULSE 86; RESP 20; TEMP 36.6; O2SAT 95
--- NOTE | 2022-04-04 18:24 | P.PNIM_ITS ---
Subjective Subjective Date of Service: 04/04/22 Interval History: f/u on empayema pt is doing much better no sob Review of Systems no sob no chest pain Physical Exam Vital Signs: Vital Signs: Last Vital Signs Temp 97.8 F 04/04/22 15:38 Pulse 86 04/04/22 15:38 Resp 20 04/04/22 15:38 BP 137/85 04/04/22 15:38 Pulse Ox 95 04/04/22 15:38 O2 Del Method 04/04/22 15:38 O2 Flow Rate 1 04/04/22 04:00 FiO2 45 03/31/22 16:00 BMI result Body Mass Index 26.5 Const: Other: General: AO X 3, no acute distress Resp: CTA bilateral CVS: S1,S2,RRR GI: +BS, NT, no distention Skin: No rash Neuro: motor grossly intact Psych: appropriate affect Objective Data Active Medications Acetaminophen (Acetaminophen 325 Mg Tablet) 975 mg PO Q6H [facility] Last Admin: 04/04/22 17:44 Dose: Not Given Documented By: LARA Non-Admin Reason: Previously Administered Albuterol Sulfate (Albuterol Sulfate (0.083%) 2.5 Mg/3 Ml Vial.Neb) 2.5 mg INHALE RQ6H PRN PRN Reason: Wheezing Last Admin: 03/31/22 22:17 Dose: 2.5 mg Documented By: MATJUANITA Benzonatate (Benzonatate 100 Mg Capsule) 200 mg PO TID PRN PRN Reason: Cough Last Admin: 04/03/22 15:52 Dose: 200 mg Documented By: LARA Docusate Sodium (Docusate Sodium 100 Mg Capsule) 100 mg PO DAILY PRN PRN Reason: Constipation Guaifenesin (Guaifenesin La 600 Mg Tab.Er.12h) 1,200 mg PO BID [facility] Stop: 04/06/22 14:14 Last Admin: 04/04/22 09:39 Dose: 1,200 mg Documented By: LARA Heparin Sodium (Porcine) (Heparin Sodium,Porcine 5,000 Unit/Ml Vial) 5,000 unit SUBCUT Q8H [facility] Last Admin: 04/04/22 16:42 Dose: 5,000 unit Documented By: LARA Hydromorphone HCl (Hydromorphone Hcl 0.5 Mg/0.5 Ml Syringe) 0.5 mg IVPUSH Q3H PRN; Protocol PRN Reason: severe breakthrough pain Last Admin: 04/04/22 16:41 Dose: 0.5 mg Documented By: LARA Ceftriaxone Sodium 2 gm/ (Sodium Chloride) 50 mls @ 100 mls/hr IV Q24H [facility] Last Infusion: 04/04/22 10:34 Dose: 0 mls/hr Documented By: LARA Multivitamins/Vitamin C (Multivitamin Tablet) 1 tab PO DAILY [facility] Last Admin: 04/04/22 09:39 Dose: 1 tab Documented By: LARA Naloxone HCl (Naloxone Hcl 0.4 Mg/Ml Vial) 0.2 mg IVPUSH Q2M PRN PRN Reason: Excessive sedation or RR < 8 Ondansetron HCl (Ondansetron Hcl 4 Mg/2 Ml Vial) 4 mg IVPUSH Q8H PRN PRN Reason: Nausea and Vomiting Pharmacy Consult (Consult Rx Perform Med Rec) 1 each MISCELLANE ONCE PRN PRN Reason: Consult order Pregabalin (Pregabalin 75 Mg Capsule) 225 mg PO BID [facility] Last Admin: 04/04/22 09:39 Dose: 225 mg Documented By: LARA Sodium Chloride (0.9 % Sodium Chloride Flush 3 Ml Syringe) 3 ml IVFLUSH [facility] Last Admin: 04/04/22 16:43 Dose: 3 ml Documented By: LARA Sodium Chloride (0.9 % Sodium Chloride Flush 3 Ml Syringe) 3 ml IVFLUSH [facility] Last Admin: 04/04/22 16:43 Dose: Not Given Documented By: LARA Non-Admin Reason: Previously Administered Labs 04/04/22 06:30 04/04/22 06:30 Labs: Laboratory Results - last 24 hr 04/04/22 04/04/22 04/04/22 06:30 06:30 06:30 MCV 85.1 MCH 27.9 MCHC 32.8 RDW 13.5 Plt Count 715 H MPV 8.9 L Absolute Nucleated RBC 0.000 Nucleated RBC % (auto) 0.0 Anion Gap 17 Estim Creat Clear Calc 105.3 105.3 Estimated GFR > 60 > 60 Random Glucose 118 H Calcium 9.0 D Microbiology Microbiology Results: Microbiology 03/30/22 14:55 Gram Stain - Final Lung - Pleura,Rt Lung Routine Culture - Final No growth after 2 days Anaerobic Culture - Final NO GROWTH AFTER 5 DAYS 03/30/22 14:55 Gram Stain - Final Pleural Fluid Routine Culture - Final No growth after 2 days Anaerobic Culture - Final NO GROWTH AFTER 5 DAYS Assessment and Plan (1) Loculated pleural effusion: Status: Acute (2) Bacterial pneumonia: Status: Acute (3) Acute respiratory failure with hypoxia: Status: Acute Plan 62-year-old female with past medical history of depression anxiety presents the hospital with acute respiratory failure found to have pneumonia # Acute? hypoxic respiratory failure sec to sepsis (POA),pneumonia complicated with loculated pleural effusion ,s/p chest tube placement (03/28 by pulm) and decortication sepsis resolved ,cxr-mild increase opacity right side..Seen by ID with the following recommendations She has strep intermedius pleural fluid She has improvement in pneumonia and is not on oxygen Plan Ceftriaxone for three weeks IV 2 g daily. echo no endocarditis. Follow CXR next week. will get PICC line for skilled nursing Abx Time Spent With Patient Time: Total time managing care of this patient today ____ minutes. Quality Stroke Does the patient have a stroke diagnosis?: No VTE Prior VTE?: No VTE Risk Level:: Medical - moderate - high VTE Device Contraindication: Treatment Not Indicated VTE Drug Contraindication: N/A - Med Ordered
[2022-04-04 20:00] VITALS: BP 142/82; PULSE 88; RESP 20; TEMP 37.7; O2SAT 92
[2022-04-05] VITALS (7 sets, daily range): BP systolic 135–161; BP diastolic 80–94; PULSE 83–97; RESP 17–20; TEMP 36.5–37.7; O2SAT 93–96
[2022-04-05] MEDS: Acetaminophen 325 MG TABLET 975 MG PO ×3 (04:44→21:26)
[2022-04-05] MEDS: HYDROmorphone HCl 0.5 MG/0.5 ML SYRINGE IVPUSH ×5 (04:44→21:26)
[2022-04-05 06:32] LABS: Creatinine Clr Calc Pharmacy 105.3; Estimated Glomerular Filt Rate > 60
[2022-04-05] MEDS: guaiFENesin LA 600 MG TAB.ER.12H 1200 MG PO ×2 (08:11→21:26)
[2022-04-05] MEDS: 0.9 % Sodium Chloride Flush 3 ML SYRINGE IVFLUSH ×2 (08:11→21:26)
[2022-04-05] MEDS: Pregabalin 75 MG CAPSULE 225 MG PO ×2 (08:11→21:27)
[2022-04-05] MEDS: Multivitamin TABLET 1 TAB PO (08:11)
[2022-04-05] MEDS: cefTRIAXone sodium 2 GM in 0.9 % Sodium Chloride 50 ML IV (08:12)
[2022-04-05] MEDS: Heparin Sodium,Porcine 5,000 UNIT/ML VIAL 5000 UNIT SUBCUT (08:18)
--- NOTE | 2022-04-05 10:57 | P.PNIM_ITS ---
Subjective Subjective Date of Service: 04/05/22 Interval History: f/u on empayema pt is doing much better no sob Review of Systems no sob no chest pain Physical Exam Vital Signs: Vital Signs: Last Vital Signs Temp 98.7 F 04/05/22 07:25 Pulse 83 04/05/22 07:25 Resp 20 04/05/22 07:25 BP 136/82 04/05/22 07:25 Pulse Ox 94 04/05/22 07:25 O2 Del Method 04/05/22 03:51 O2 Flow Rate 1 04/04/22 04:00 FiO2 45 03/31/22 16:00 BMI result Body Mass Index 26.5 Const: Other: General: AO X 3, no acute distress Resp: CTA bilateral CVS: S1,S2,RRR GI: +BS, NT, no distention Skin: No rash Neuro: motor grossly intact Psych: appropriate affect Objective Data Active Medications Acetaminophen (Acetaminophen 325 Mg Tablet) 975 mg PO Q6H [facility] Last Admin: 04/05/22 09:53 Dose: 975 mg Documented By: CAROLYN Benzonatate (Benzonatate 100 Mg Capsule) 200 mg PO TID PRN PRN Reason: Cough Last Admin: 04/03/22 15:52 Dose: 200 mg Documented By: GERSONORRRobby Docusate Sodium (Docusate Sodium 100 Mg Capsule) 100 mg PO DAILY PRN PRN Reason: Constipation Guaifenesin (Guaifenesin La 600 Mg Tab.Er.12h) 1,200 mg PO BID [facility] Stop: 04/06/22 14:14 Last Admin: 04/05/22 08:11 Dose: 1,200 mg Documented By: CAROLYN Heparin Sodium (Porcine) (Heparin Sodium,Porcine 5,000 Unit/Ml Vial) 5,000 unit SUBCUT Q8H [facility] Last Admin: 04/05/22 08:18 Dose: 5,000 unit Documented By: CAROLYN Hydromorphone HCl (Hydromorphone Hcl 0.5 Mg/0.5 Ml Syringe) 0.5 mg IVPUSH Q3H PRN; Protocol PRN Reason: severe breakthrough pain Last Admin: 04/05/22 08:11 Dose: 0.5 mg Documented By: CAROLYN Ceftriaxone Sodium 2 gm/ (Sodium Chloride) 50 mls @ 100 mls/hr IV Q24H [facility] Last Infusion: 04/05/22 09:00 Dose: 0 mls/hr Documented By: CAROLYN Multivitamins/Vitamin C (Multivitamin Tablet) 1 tab PO DAILY [facility] Last Admin: 04/05/22 08:11 Dose: 1 tab Documented By: CAROLYN Naloxone HCl (Naloxone Hcl 0.4 Mg/Ml Vial) 0.2 mg IVPUSH Q2M PRN PRN Reason: Excessive sedation or RR < 8 Ondansetron HCl (Ondansetron Hcl 4 Mg/2 Ml Vial) 4 mg IVPUSH Q8H PRN PRN Reason: Nausea and Vomiting Pharmacy Consult (Consult Rx Perform Med Rec) 1 each MISCELLANE ONCE PRN PRN Reason: Consult order Pregabalin (Pregabalin 75 Mg Capsule) 225 mg PO BID [facility] Last Admin: 04/05/22 08:11 Dose: 225 mg Documented By: CAROLYN Sodium Chloride (0.9 % Sodium Chloride Flush 3 Ml Syringe) 3 ml IVFLUSH QSHIFT [facility] Last Admin: 04/05/22 08:11 Dose: 3 ml Documented By: CAROLYN Sodium Chloride (0.9 % Sodium Chloride Flush 3 Ml Syringe) 3 ml IVFLUSH QSHIFT [facility] Last Admin: 04/05/22 08:17 Dose: Not Given Documented By: CAROLYN Non-Admin Reason: Duplicate Order Labs 04/04/22 06:30 04/05/22 05:37 Labs: Laboratory Results - last 24 hr 04/05/22 05:37 Estim Creat Clear Calc 105.3 Estimated GFR > 60 Microbiology Microbiology Results: Microbiology 03/30/22 14:55 Gram Stain - Final Lung - Pleura,Rt Lung Routine Culture - Final No growth after 2 days Anaerobic Culture - Final NO GROWTH AFTER 5 DAYS 03/30/22 14:55 Gram Stain - Final Pleural Fluid Routine Culture - Final No growth after 2 days Anaerobic Culture - Final NO GROWTH AFTER 5 DAYS Assessment and Plan (1) Loculated pleural effusion: Status: Acute (2) Bacterial pneumonia: Status: Acute (3) Acute respiratory failure with hypoxia: Status: Acute Plan 62-year-old female with past medical history of depression anxiety presents the hospital with acute respiratory failure found to have pneumonia # Acute? hypoxic respiratory failure sec to sepsis (POA),pneumonia complicated with loculated pleural effusion ,s/p chest tube placement (03/28 by pulm) and decortication sepsis resolved ,cxr-mild increase opacity right side..Seen by ID with the following recommendations She has strep intermedius pleural fluid She has improvement in pneumonia and is not on oxygen Plan Ceftriaxone for three weeks IV 2 g daily. echo no endocarditis. Follow CXR next week. will get PICC line for skilled nursing Abx, possible DC today if all arragement can be done on time Time Spent With Patient Time: Total time managing care of this patient today ____ minutes. Quality Stroke Does the patient have a stroke diagnosis?: No VTE Prior VTE?: No VTE Risk Level:: Medical - moderate - high VTE Device Contraindication: Treatment Not Indicated VTE Drug Contraindication: N/A - Med Ordered
--- NOTE | 2022-04-05 14:30 | PC.NURSE ---
at 1420 pt has some bigeminy pvc with HR 108. pt denied SOB or chest pain. notified. Cont monitoring
--- NOTE | 2022-04-05 18:46 | HO.MIDLINE ---
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 Using ultrasound guidance, left basilic vein access was obtained in a single attempt by this RN after 2 attempts on the right arm by Levon Motta RN. a 20 guage 10 cm Non-PASV midline was positioned. The procedure was performed in S272. Ultrasound was used to document vein patency and for needle entry. A formal ultrasound picture was recorded. [employer] has released the line for use and it is currently dressed with a StatLock, Tegaderm, and CHG disc. Verification has been performed for blood return and line patency. Arm Circumference: 27 cm Equipment: Bard PowerGlide ST Non-PASV Midline Catheter Catheter Type: 20 guage 10 cm Non-PASV Lot #: [id number]
[2022-04-06 04:00] VITALS: BP 151/87; PULSE 95; RESP 18; TEMP 36.6; O2SAT 94
[2022-04-06] MEDS: Acetaminophen 325 MG TABLET 975 MG PO ×2 (05:12→09:59)
[2022-04-06] MEDS: HYDROmorphone HCl 0.5 MG/0.5 ML SYRINGE IVPUSH ×2 (05:13→09:53)
[2022-04-06 07:00] LABS: Creatinine Clr Calc Pharmacy 103.6; Estimated Glomerular Filt Rate > 60
[2022-04-06 07:41] VITALS: BP 146/88; PULSE 76; RESP 20; TEMP 36.7; O2SAT 94
--- NOTE | 2022-04-06 08:43 | PM.DS ---
DS: Providers Provider Date of Service: 04/06/22 Date of admission: 03/27/22 22:23 Primary care physician: Demetrice Keene MD Consults: 03/28/22 09:16 Consult to Pulmonology Routine Consulting Provider: [facility] Pulmonology Services Reason for consultation: acute hypoxia/pneumonia/sepsis/pleural effusion Has provider been notified: No 03/28/22 12:41 Consult to Thoracic Surgery Routine Consulting Provider: [facility] Thoracic Surgeons Reason for consultation: acute respiratory failure/loculated parapneumic effusion -need drainage 04/01/22 15:43 Consult to Infectious Diseases Routine Consulting Provider: Maria Guadalupe Milligan Reason for consultation: Acute hypoxemic respiratory failure secondary to sepsis/pneumonia, DS: Diagnosis Discharge Diagnosis (1) Loculated pleural effusion: Status: Acute (2) Bacterial pneumonia: Status: Acute (3) Acute respiratory failure with hypoxia: Status: Acute DS: Summary Hospital Course Hospital Course: Chief Complaint: fatigue ?62-year-old female with past medical history of basal cell carcinoma, depression, anxiety presents to the hospital with complaints of shortness of breath, significant fatigue, cough.? Patient reports that her symptoms started in February, slightly improved at the end of the month but reoccurred about 3 days ago.? patient reports no fever or chills, reports significant fatigue or she is sleeping most of the time, has cough, significant shortness of breath. ?patient otherwise denies any chest pain, no abdominal pain nausea or vomiting, she has poor appetite and low oral intake.? Denies any urinary symptoms and no lower extremity edema.? On arrival to the ED patient found to be hypoxic with minimal movement dropping to 91% at rest.? Labs are significant for WBC count of 35.7, viral serology negative Chest x-ray shows right lower lobe pneumonia Hospital course: Patient presented with acute hypoxic respiratory failure due to pneumonia with loculated pleural effusion that neded decordication in OR by Dr. Prabhakar. Sample culture grew Strep Intermidius. She has been treated with Ceftriaxone 2 gram daily for 4 weeks, a mid line has been inserted for senior living Abx use. She is no longer hypoxic and breathing easy at 94% on room air. Post procedure CXR showed improvement. To follow up with thoracic surgery. Sew ill go home with home infusion service for IV at home. Echo showed no evidence of endocarditis. Final diagnosis Acute hypoxic respiratory failure Empayema loculated pleural effusion pneumonnia Time Spent with Patient Time attestation: Total time managing care of this patient today ____ minutes. Discharge coordination time: Greater than 30 minutes Quality: Safe Use of Opioids Does Pt have an Active Cancer Diagnosis on the Problem List?: No Quality: Stroke Does the patient have a stroke diagnosis?: No Physical Exam Vital Signs: Vital Signs: Last Vital Signs Temp 98.0 F 04/06/22 07:41 Pulse 76 04/06/22 07:41 Resp 20 04/06/22 07:41 BP 146/88 H 04/06/22 07:41 Pulse Ox 94 04/06/22 07:41 O2 Del Method 04/06/22 07:41 O2 Flow Rate 1 04/04/22 04:00 FiO2 45 03/31/22 16:00 BMI result Body Mass Index 26.5 Const: Other: General: AO X 3, no acute distress Resp: CTA bilateral CVS: S1,S2,RRR GI: +BS, NT, no distention Skin: No rash Neuro: motor grossly intact Psych: appropriate affect DS: Data Data Completed and Pending Completed studies during hospitalization [Text1]: Pending at discharge 03/30/22 14:56 Cytology [PTH] Stat 03/30/22 17:15 Surgical [PTH] Stat Labs on day of discharge: Laboratory Results - last 24 hr 04/06/22 06:19 Creatinine 0.63 Estim Creat Clear Calc 103.6 Estimated GFR > 60 Preliminary micro results at discharge 03/30/22 14:55 Fungal Identification - Preliminary Lung - Pleura,Rt Lung No growth to date. 03/30/22 14:55 Fungal Identification - Preliminary Pleural Fluid No growth to date. Discharge Plan Discharge Anticipated Discharge Date/Time: 04/06/22 08:44 Patient Disposition: Home Health Service Discharge Diagnosis: Loculated pleural effusion Referrals: Demetrice Keene MD [Primary Care Provider] - 1 Week Discharge Medications: New ceftriaxone 2 gram Recon Soln 2 g IV Q24H Qty: 28 0RF Continued fluoxetine 20 mg tablet 20 mg PO DAILY Qty: 90 4RF multivitamin Tablet 1 tab PO DAILY oxycodone 15 mg tablet 1 tab PO Q6H PRN (Reason: severe pain) claudia extract 250 mg Capsule 250 mg PO DAILY pregabalin 225 mg capsule 1 cap PO BID apple cider vinegar 300 mg Tablet 300 mg PO DAILY turmeric root extract 500 mg Capsule 500 mg PO DAILY Discharge Orders: Discharge Order (Routine); Ordered 04/06/22 Ordered By: Juanito Pandya Diet: Advance to usual diet Activity on Discharge: As tolerated Stand Alone Forms: Patient Portal Discharge page Activity Restrictions/Additional Instructions: ACTIVITY: You should be out of bed and walking at least 3x per day. No lifting anything heavier than 10lb x 2 weeks (ie, gallon of milk). Continue to use the incentive spirometer at least 10x per day, and flutter valve, to aide with keeping the lungs expanded. INCISION CARE: The dressing where the chest tube was removed needs to stay in place UNTOUCHED x 2 days. You should remove the dressing on 04/04/22 around lunchtime. DO NOT remove the dressing before then. Once dressing is removed you may leave this area open to air and you may shower. Sponge bathe only until dressing is removed. Keep all incisions clean and dry. Gently wash incisions with soap and water. No scrubbing the areas. No tub baths, swimming, etc. for the next 2-4 weeks. WHAT TO WATCH FOR: Monitor all incisions for increased redness, swelling, open areas, or drainage. Monitor for increased air under the skin around the incisions or chest (feels like Rice Krispy cereal when touched). Monitor for fever, chills, shortness of breath, chest pain, severe abdominal pain, persistent nausea/vomiting, severe changes in bowel or bladder habits. SMOKING CESSATION: Smoking is hazardous to your health and those around you. Continuing to smoke or use tobacco products can increase your chance of postoperative complications, including delayed wound healing, wound infection, stroke, and heart attack. If you currently use tobacco products (cigarettes, dip, cigars, electronic/vapor cigarettes, etc) talk with your provider about options that are available to help you quit. You can call the [facility]'s Smokers' Helpline at 2-966-QUIT NOW ( ). For Ukrainian, call 1-614-4-RAMU ( ). You can also visit the website at www.[email or web address]. FOLLOWUP APPOINTMENTS: You have an appointment with Madhavi Watson PA-C at the [facility] Thoracic Surgery office on 04/14/2022 @ 10:30am for a followup. [address] [facility], [address] [place] [address] Arrive 30 minutes prior to your appointment to have a chest xray done at [facility] Radiology (1st floor, [facility]). Go to Patient Registration to check in for the x-ray. Call the thoracic surgery office @ [phone] if you have any questions or concerns. Care Plan Goals: full recovery from empayema Health Concerns: empayema Plan of Treatment: take IV antibiotics (Ceftriaxone) as directed and follow up with your Doctor in a week Assessment: See above
[2022-04-06] MEDS: cefTRIAXone sodium 2 GM in 0.9 % Sodium Chloride 50 ML IV (09:52)
[2022-04-06] MEDS: Heparin Sodium,Porcine 5,000 UNIT/ML VIAL 5000 UNIT SUBCUT (09:58)
[2022-04-06] MEDS: Pregabalin 75 MG CAPSULE 225 MG PO (09:58)
[2022-04-06] MEDS: Multivitamin TABLET 1 TAB PO (09:59)
[2022-04-06] MEDS: guaiFENesin LA 600 MG TAB.ER.12H 1200 MG PO (09:59)
[2022-04-06] MEDS: 0.9 % Sodium Chloride Flush 3 ML SYRINGE IVFLUSH (10:00)
--- NOTE | 2022-04-06 10:17 | MHC.CM.PN ---
Patient is discharge to home today. She will receive Ceftriaxone x 28 days. She has been taught home infusion by [facility]. The Li[facility] reports that the patient did very well with IV infusion administration. [facility] will provide nursing as well as Med and supplies. The patient will be transported home by her dtr this morning.
[2022-04-06 11:11] VITALS: BP 138/84; PULSE 89; RESP 20; TEMP 36.9; O2SAT 99
== END 2022-04-06 13:16 | disposition home health service (06) | DRG 710 ==
LOC: HO.ED 20:47 → HO.EDOVER 22:42 → HO.ICU 03-28 16:10 → HO.IMC 03-29 14:48
PROVIDERS: Internal Medicine; Internal Medicine Pulmonary Disease; Physician Assistant; Surgery; Admitting Provider Internal Medicine; Emergency Provider Emergency Medicine; PCP Internal Medicine; Visit Provider Internal Medicine
PROC: 0BNK4ZZ Release Right Lung, Percutaneous Endoscopic Approach (ICD-10-PCS; principal; 2022-03-30 13:30)
DX: A41.9 Sepsis, unspecified organism (principal); J96.01 Acute respiratory failure with hypoxia; J86.9 Pyothorax without fistula; J15.4 Pneumonia due to other streptococci; J91.8 Pleural effusion in other conditions classified elsewhere; F32.A Depression, unspecified; F41.9 Anxiety disorder, unspecified; Z20.822 Contact with and (suspected) exposure to COVID-19; Z87.891 Personal history of nicotine dependence; Z85.828 Personal history of other malignant neoplasm of skin; Z88.2 Allergy status to sulfonamides; Z79.899 Other long term (current) drug therapy
CPT/HCPCS: 0241U; 36410; 36415; 71045; 71250; 80048; 80076; 80202; 82040; 82042; 82565; 82803; 82945; 83605; 83615; 83735; 83880; 83986; 84100; 84155; 84157; 84484; 85007; 85025; 85027; 85610; 85730; 86850; 86900; 86901; 87040; 87070; 87073; 87077; 87102; 87107; 87116; 87186; 87205; 87206; 88112; 88305; 89051; 93005; 93306; 94640; 94660; 96365; 96366; 96367; 99285; A4649; C1758; J0456; J0690; J0696; J1040; J1170; J1643; J1650; J1885; J2060; J2405; J2795; J2920; J2997; J3010; J3370

== ENCOUNTER → 2022-04-12 10:54 | Outpatient (BNVA) | payer BC, SELFPAY | PROVIDERS: PCP Internal Medicine; Visit Provider Internal Medicine | DX: A41.9 Sepsis, unspecified organism (principal) ==

== ENCOUNTER 2022-05-04 14:58 | Outpatient (REF) | payer BC, SELFPAY ==
--- NOTE | ~2022-05-04 | XR_ITS ---
EXAMINATION: XR CHEST CLINICAL INFORMATION: COPD. COMPARISON: 04/04/2022 chest radiographs. TECHNIQUE: 2 views of the chest were obtained. FINDINGS: There is a small right pleural effusion with mild superjacent linear markings. The left lung is clear. The heart and mediastinal structures are unremarkable. XR/XR chest 2V IMPRESSION: Small right pleural effusion with mild superjacent atelectasis/scarring. A definitive infiltrate is not seen.
[2022-05-04 16:29] LABS: MANUAL DIFF FLAG NO
[2022-05-04 16:37] LABS: Basophils Absolute Auto 0.1 X10*3/uL (0.0-0.2); Eosinophils Absolute Auto 0.4 X10*3/uL (0.0-0.4); Eosinophils Percent Auto 4.2 % (0-4); Hematocrit 34.6 % (37.0-47.0); Hemoglobin 11.1 g/dl (12.0-16.0); Imm Gran Abs Auto 0.04 X10*3/uL (0.00-0.03); Imm Gran Pct Auto 0.4 % (0.0-0.4); Lymphocytes Percent Auto 38.8 % (20-40); Mean Corpuscular HGB Conc 32.1 g/dl (31.0-35.0); Mean Corpuscular Hemoglobin 27.8 pg (27.0-33.0); Mean Corpuscular Volume 86.5 fL (80.0-98.0); Mean Platelet Volume 10.3 fL (9.4-12.3); Monocytes Absolute Auto 0.8 X10*3/uL (0.1-1.2); Monocytes Percent Auto 7.7 % (2-11); Neutrophils Percent Auto 47.9 % (45-73); Platelet Count 325 X10*3/uL (160-400); Red Cell Distribution Width 15.2 % (11.0-16.0); White Blood Count 10.3 X10*3/uL (4.8-10.8)
[2022-05-04 16:58] LABS: Alanine Aminotransferase 9 U/L (0-31); Albumin Level 4.1 g/dL (3.5-5.0); Alkaline Phosphatase 134 U/L (39-117); Anion Gap 16 (12-20); Aspartate Amino Transferase 12 U/L (5-31); Bilirubin Total 0.4 mg/dL (0.0-1.0); Blood Urea Nitrogen 18 mg/dL (9-16); Calcium 9.1 mg/dL (8.4-10.2); Carbon Dioxide 26 mmol/L (22-29); Chloride 101 mmol/L (96-108); Estimated Glomerular Filt Rate > 60; Glucose Random 91 mg/dL (60-115); Potassium 4.9 mmol/L (3.3-5.1); Sodium 138 mmol/L (135-145); Total Protein 6.5 g/dL (6.5-8.0)
[2022-05-04 18:12] LABS: B Type Natriuretic Peptide 12 pg/mL (<100)
== END 2022-05-04 14:59 | disposition home or self-care (01) ==
LOC: HO.HMGCLDS 14:58
PROVIDERS: PCP Internal Medicine; Visit Provider Internal Medicine
DX: J44.9 Chronic obstructive pulmonary disease, unspecified (principal); J15.9 Unspecified bacterial pneumonia; I10 Essential (primary) hypertension
CPT/HCPCS: 36415; 71046; 80053; 83880; 85025

== ENCOUNTER 2022-06-02 14:25 | Outpatient (REF) | payer BC, SELFPAY ==
[2022-06-02 16:40] LABS: MANUAL DIFF FLAG NO
[2022-06-02 16:46] LABS: Basophils Absolute Auto 0.1 X10*3/uL (0.0-0.2); Basophils Percent Auto 0.7 % (0-2); Eosinophils Absolute Auto 0.3 X10*3/uL (0.0-0.4); Eosinophils Percent Auto 3.1 % (0-4); Hematocrit 38.9 % (37.0-47.0); Hemoglobin 12.4 g/dl (12.0-16.0); Imm Gran Abs Auto 0.05 X10*3/uL (0.00-0.03); Imm Gran Pct Auto 0.5 % (0.0-0.4); Lymphocytes Absolute Auto 3.4 X10*3/uL (1.2-4.9); Lymphocytes Percent Auto 31.4 % (20-40); Mean Corpuscular HGB Conc 31.9 g/dl (31.0-35.0); Mean Corpuscular Hemoglobin 27.4 pg (27.0-33.0); Mean Corpuscular Volume 86.1 fL (80.0-98.0); Mean Platelet Volume 10.8 fL (9.4-12.3); Monocytes Absolute Auto 0.7 X10*3/uL (0.1-1.2); Monocytes Percent Auto 6.5 % (2-11); Neutrophils Absolute Auto 6.3 x10*3/uL (2.0-8.3); Neutrophils Percent Auto 57.8 % (45-73); Platelet Count 355 X10*3/uL (160-400); Red Blood Count 4.52 X10*6/uL (4.20-5.50); Red Cell Distribution Width 16.1 % (11.0-16.0); White Blood Count 10.9 X10*3/uL (4.8-10.8)
[2022-06-02 17:13] LABS: B Type Natriuretic Peptide 11 pg/mL (<100)
[2022-06-02 17:15] LABS: Anion Gap 14 (12-20); Blood Urea Nitrogen 18 mg/dL (9-16); Calcium 10.2 mg/dL (8.4-10.2); Carbon Dioxide 28 mmol/L (22-29); Chloride 100 mmol/L (96-108); Estimated Glomerular Filt Rate > 60; Glucose Random 103 mg/dL (60-115); Potassium 5.1 mmol/L (3.3-5.1); Sodium 137 mmol/L (135-145)
[2022-06-02 17:16] LABS: Alanine Aminotransferase 8 U/L (0-31); Albumin Level 4.6 g/dL (3.5-5.0); Alkaline Phosphatase 130 U/L (39-117); Aspartate Amino Transferase 13 U/L (5-31); Bilirubin Total 0.5 mg/dL (0.0-1.0); Iron 69 mcg/dL (30-160); Percent Iron Saturation 20 % (15-50); Total Iron Binding Capacity 340 mcg/dL (228-428); Unsaturated Iron Binding 271 ug/dL
[2022-06-02 17:30] LABS: TSH reflex Free T4 1.62 uIU/mL (0.32-4.0)
== END 2022-06-02 14:26 | disposition home or self-care (01) ==
LOC: HO.HMGCLDS 14:25
PROVIDERS: PCP Internal Medicine; Visit Provider Internal Medicine
DX: J44.9 Chronic obstructive pulmonary disease, unspecified (principal); R53.83 Other fatigue; I10 Essential (primary) hypertension
CPT/HCPCS: 36415; 80053; 83540; 83880; 84443; 85025

== ENCOUNTER → 2022-06-15 13:29 | Outpatient (BNVA) | payer BC, SELFPAY | PROVIDERS: PCP Internal Medicine; Visit Provider Hospitalist | DX: Z13.89 Encounter for screening for other disorder (principal) ==

== ENCOUNTER → 2022-08-24 14:36 | Outpatient (BNVA) | payer BC, SELFPAY | PROVIDERS: PCP Internal Medicine; Visit Provider Hospitalist | DX: K21.9 Gastro-esophageal reflux disease without esophagitis (principal) ==

== ENCOUNTER 2022-09-29 12:06 | Outpatient (AMB) | payer BC, SELFPAY ==
--- NOTE | 2022-09-29 12:08 | MHC.PC.OV ---
Vital Signs 09/29/22 12:10 Height 5 ft 8 in Weight 179 lb BMI 27.2 BP 132/80 Blood Pressure Location Lt brachial Position Sitting Pulse 71 Pulse Source Pulse Oximeter Pulse Oximetry (%) 98 Oxygen Delivery Method Room Air Intake Visit Reasons: 2 month Follow up HTN, COPD Intake Note: Pt is here today for her 2 mo. f/u HTN and COPD Allergies sulfamethoxazole Allergy (Intermediate, Verified 09/29/22 12:09) Rash bupropion Adverse Reaction (Intermediate, Verified 09/29/22 12:09) Nausea Medication List - Last Reconciled 09/29/22 by Demetrice Keene MD albuterol sulfate 90 mcg/actuation 0 mcg inhalation apple cider vinegar 300 mg PO DAILY fluoxetine 20 mg PO DAILY aeioxsjemdk-qjmortntk-hrjdzxzq 100-62.5-25 mcg (Trelegy Ellipta) 1 inh inhalation DAILY claudia (Zingiber officinalis) (claudia extract) 250 mg PO DAILY losartan 50 mg PO DAILY multivitamin 1 tab PO DAILY oxycodone 1 tab PO Q6H PRN pregabalin 1 cap PO BID turmeric root extract 500 mg PO DAILY Tobacco use date assessed: 09/29/22 Dental Screening Dental Screen Date: 09/29/22 Did you have a dental visit in the last 12 months?: Yes Did you have a dental problem in the last 6 months where you did not have access to dental care?: No Was dental information given to patient?: Patient has dentist HPI 2 month Follow up HTN, COPD HPI Details Pt presents for f/u HTN and COPD, stable on meds. PFSH Medical History Anxiety Basal cell carcinoma Depression DJD (degenerative joint disease) Personal history of nicotine dependence Tobacco dependence Surgical History History of basal cell carcinoma excision History of chest tube placement History of lung surgery Family History Father Cancer Mother HTN (hypertension) Social History Household Members: None Housing: Apartment Do you presently have visiting nurse or other home services: No Patient Tobacco Use Status: Current someday Tobacco user Tobacco use type: Cigarette Cigarette Packs Per Day: 1 Cigarettes Per Day: 20.0 e-Cigarette/Vaping Use: Former Use Second Hand Smoke Exposure: No service: No Current occupational status: employed Cognitive needs: No Hearing needs: No Vision needs: No Questionnaire Thrive Questionnaire Date Thrive assessed: 05/04/22 AUDIT C Alcohol Use Questionnaire (AUDIT-C) 1. How often do you have a drink containing alcohol?: Monthly or less 2. How many drinks containing alcohol do you have on a typical day when you are drinking?: 1 or 2 3. How often do you have six or more drinks on one occasion?: Never Total Score: 1 WILLAM-7 AMB Questionnaire WILLAM-7 Date WILLAM - 7 assessed: 05/04/22 Source: Developed by Drs. Pedro Masterson, Laura Perrin, Alexis Saleh and colleagues, with an educational farhad from [employer]. Review of Systems Const All systems reviewed & are unremarkable except as noted in HPI and below Eyes Reports no additional complaints ENT Reports no additional complaints Resp Reports no additional complaints GI Reports no additional complaints Reports no additional complaints Physical exam (Primary Care) Vital Signs: Last Vital Signs Pulse 71 09/29/22 12:10 BP 152/90 H 09/29/22 12:10 Pulse Ox 98 09/29/22 12:10 Oxygen Delivery Method Room Air 09/29/22 12:10 BMI result Body Mass Index 27.2 Tobacco/Smoking Status: Tobacco use Status Tobacco use date assessed 09/29/22 09/29/22 12:14 Patient Tobacco Use Status Current someday Tobacco 09/29/22 12:14 Tobacco use type Cigarette 09/29/22 12:14 e-Cigarette/Vaping Use Former Use 09/29/22 12:14 Thrive Assessment: Date of Thrive Assessment Date Thrive assessed 05/04/22 09/29/22 12:14 Const General: no acute distress HENMT Head: Yes normal to inspection Mouth: Normal oral and palatal mucosa present Resp Effort & Inspection: normal respiratory effort Auscultation: diminished lung sounds Cardio Rhythm: regular rhythm Heart sounds: S1 normal heart sound present and S2 normal heart sound present Assessment and Plan Assessment & Plan (1) HTN (hypertension): Code(s): I10 - Essential (primary) hypertension Plan: Medication compliance discussed with the patient . she willrestart losartan and follow-up in 3 months with a fasting labs before (2) Hyperlipidemia: Code(s): E78.5 - Hyperlipidemia, unspecified Plan: Start 40 mg of pravastatin, continue low-cholesterol diet and check lipid profile in 3 months (3) COPD (chronic obstructive pulmonary disease): Code(s): J44.9 - Chronic obstructive pulmonary disease, unspecified Plan: Continue Trelegy Orders: Orders Comprehensive [place]. Panel Fast 3 Months E78.5 - Hyperlipidemia, unspecified, I10 - Essential (primary) hypertension, J44.9 - Chronic obstructive pulmonary disease, unspecified Hemoglobin A1c 3 Months E78.5 - Hyperlipidemia, unspecified, I10 - Essential (primary) hypertension, J44.9 - Chronic obstructive pulmonary disease, unspecified Lipid Panel 3 Months E78.5 - Hyperlipidemia, unspecified, I10 - Essential (primary) hypertension, J44.9 - Chronic obstructive pulmonary disease, unspecified Referrals Gastroenterology Referral Z00.00 - Encounter for general adult medical examination without abnormal findings Medications: New pravastatin 40 mg PO DAILY 90 tabs 3RF Coding Level of Care Code Est Pt Level 4 (47804) Diagnoses HTN (hypertension) I10 Hyperlipidemia E78.5 COPD (chronic obstructive pulmonary disease) J44.9
[2022-09-29 12:10] VITALS: BP 132/80; PULSE 71; O2SAT 98; BMI 27.2
== END 2022-09-29 13:15 | disposition home or self-care (01) ==
PROVIDERS: Visit Provider Internal Medicine
DX: I10 Essential (primary) hypertension (principal); E78.5 Hyperlipidemia, unspecified; J44.9 Chronic obstructive pulmonary disease, unspecified
CPT/HCPCS: 99214

== ENCOUNTER 2022-10-04 15:53 | Outpatient (REF) | payer BC, SELFPAY ==
--- NOTE | ~2022-10-04 | MM_ITS ---
EXAMINATION: MM SCREENING DIGITAL BREAST TOMOSYNTHESIS, BILATERAL CLINICAL INFORMATION: Screening. Asymptomatic. The lifetime risk of breast cancer based on the Tyrer-Cuzick Model is 6.7%. COMPARISON: Mammography: This study is compared with prior exams dating back to 2016. TECHNIQUE: Digital breast tomosynthesis is performed in both the craniocaudal and mediolateral oblique views along with computer-aided detection (CAD). Synthesized 2D images are generated from the tomosynthesis. FINDINGS: The breasts are heterogeneously dense, which may obscure small masses (ACR BI-RADS breast composition Category c). There are no significant masses, abnormal calcifications, or other abnormalities. MM/MM tomosynthesis screening BI IMPRESSION: No mammographic evidence of malignancy. ASSESSMENT: BI-RADS BI-RADS 1 - Negative RECOMMENDATION: Routine annual mammography screening. 1 year F/U This examination should not preclude the clinical evaluation of a suspicious palpable abnormality. This patient's information was entered into a reminder system with a target due date for their next mammogram.
== END 2022-10-04 15:54 | disposition home or self-care (01) ==
LOC: HO.MAMMO 15:53
PROVIDERS: PCP Internal Medicine; Visit Provider Internal Medicine
DX: Z12.31 Encounter for screening mammogram for malignant neoplasm of breast (principal)
CPT/HCPCS: 77063; 77067

== ENCOUNTER → 2022-10-04 16:00 | Outpatient (BNV) | payer BC, SELFPAY | PROVIDERS: PCP Internal Medicine; Visit Provider Radiology Diagnostic Radiology | DX: Z12.31 Encounter for screening mammogram for malignant neoplasm of breast (principal) | CPT/HCPCS: 77063; 77067 ==

== ENCOUNTER 2023-03-16 14:01 | Outpatient (REF) | payer BC, SELFPAY | END 2023-03-16 14:02 | disposition home or self-care (01) | LOC: HO.XRAY 14:01 | PROVIDERS: PCP Internal Medicine; Visit Provider Hospitalist | DX: J44.9 Chronic obstructive pulmonary disease, unspecified (principal) | CPT/HCPCS: 71046 ==

== ENCOUNTER 2023-03-16 14:27 | Outpatient (AMB) | payer BC, SELFPAY ==
[2023-03-16 14:37] VITALS: PULSE 80; O2SAT 94; BMI 26.6
--- NOTE | 2023-03-16 14:37 | A.OFFVIS_ITS ---
Intake Vital Signs 03/16/23 14:37 Height 5 ft 8 in Weight 175 lb BMI 26.6 Pulse 80 Pulse Source Pulse Oximeter Pulse Oximetry (%) 94 Oxygen Delivery Method Room Air Intake Visit Reasons: emphysema Manager Drug Required: No Allergies sulfamethoxazole Allergy (Intermediate, Verified 03/16/23 14:38) Rash bupropion Adverse Reaction (Intermediate, Verified 03/16/23 14:38) Nausea HPI HPI Comments History of Present Illness Details The patient is a 63 year woman without known history of tobacco dependency who apparently was in usual state health until couple months ago she started developing worsening chest discomfort shortness of breath. She was diagnosed with an empyema. The patient underwent a decortication. Her cultures were positive for strep intermedius. She was treated with antibiotics after worse and the patient has recovered. Her last chest x-ray demonstrated still some persistent opacity of the right base in addition to mild diffusion. Will plan to repeat the fusion. Overall her symptoms have improved although she still has a productive cough. Moderate severity. Unfortunately it is likely a smoker's cough with chronic bronchitis. We talked about the importance of mucus clearance. The patient will be starting azithromycin 3 times a week and also provide the patient with a flutter valve for CPT. Patient also needs to quit smoking. She had good response to Wellbutrin in the past which will start at this time. The patient will need more recent imaging studies and will plan to do pulmonary function studies. 08/24/2022 the patient is here for a pulmo nary follow-up visit. The patient does feel a lot better. She is still smoking however. The Wellbutrin did not work for her. Therefore she was placed on Chantix. She is day 5 at this time. I am hopeful that this is effective. She knows to watch monitor for any signs of depression. They azithromycin has been helpful decreasing her chest congestion and mucus production. Therefore in view of her very significant infection and persistent chronic bronchitis from her smoking will going to go ahead and continue the azithromycin for now. She is responding well to the Trelegy. Her last chest x-ray was back in April or so and demonstrated trivial pleural effusion and some residual changes from her severe pneumonia. Will go ahead and repeat her chest x-ray at this time. Will follow-up in the fall. Hopefully then we can deescalate some more medical therapy. Hopefully by then she quit smoking altogether. If the patient has any issues prior to her next visit she is to call the office earlier assessment. 03/16/2023 the patient is here for sick visit. She started developing worsening respiratory symptoms last night she did go to the ER. She was swab positive for RSV. The patient was given a short course of prednisone. Although she is still having chest congestion cough and wheezing. Moderate severity. Positive sick contacts. The patient will start doxycycline for postviral bacterial infections and also will continue course of prednisone. I did give her a work note for her to stay out of work from other 5 days. If the patient is no better she should call the office for an earlier evaluation. [facility] Medical History Anxiety Basal cell carcinoma Depression DJD (degenerative joint disease) Personal history of nicotine dependence Tobacco dependence Surgical History History of basal cell carcinoma excision History of chest tube placement History of lung surgery Family History Father Cancer Mother HTN (hypertension) Social History Household Members: None Housing: Apartment Do you presently have visiting nurse or other home services: No Comment: pt refusing alarms Patient Tobacco Use Status: Current someday Tobacco user Tobacco use type: Cigarette Cigarette Packs Per Day: 1 Cigarettes Per Day: 20.0 e-Cigarette/Vaping Use: Former Use Second Hand Smoke Exposure: No service: No Current occupational status: employed Cognitive needs: No Hearing needs: No Vision needs: No Review of Systems Const Reports fatigue and Denies fever(s) Eyes Denies change in vision ENT Denies change in voice Card Denies chest pain and Reports dyspnea on exertion Resp Reports chest congestion, Reports cough, Denies hemoptysis, Reports dyspnea on exertion and Reports wheezing GI Reports no additional complaints Musc Reports no additional complaints Skin/Breast Denies rash Neuro Reports no additional complaints Endo Reports fatigue Aller/Immun Reports wheezing Physical Exam Vital Signs: Last Vital Signs Pulse 80 03/16/23 14:37 Pulse Ox 94 03/16/23 14:37 Oxygen Delivery Method Room Air 03/16/23 14:37 BMI result Body Mass Index 26.6 Const General: cooperative HEENT Other: poor dentition Face and sinus: Yes normal facial exam Mouth: Normal oral and palatal mucosa present Teeth and gingiva: dentition normal Eyes General: appearance normal, both eyes and all related structures Pupils: Equal, round and reactive pupils present Neck Neck: Yes supple Chest Chest palpation & inspection: normal inspection of the chest Resp Effort & Inspection: normal respiratory effort Auscultation: rhonchi, wheezes and diminished lung sounds Cardio Rate: regular rate Rhythm: regular rhythm GI Palpation (GI): Soft to palpation and nontender General: Yes no CVA tenderness Back/Spine/Pelvis Back: no CVA tenderness Skin General skin exam: no rashes or lesions noted Neuro General: moves all extremities Cranial nerves: Yes Equal, round and reactive pupils present Extrem General: Yes no clubbing, cyanosis or edema Psych Appearance: grossly normal Assessment & Plan Assessment & Plan (1) RSV (respiratory syncytial virus infection): Code(s): B33.8 - Other specified viral diseases (2) COPD (chronic obstructive pulmonary disease): Code(s): J44.9 - Chronic obstructive pulmonary disease, unspecified Qualifiers: COPD type: COPD with acute exacerbation Qualified Code(s): J44.1 - Chronic obstructive pulmonary disease with (acute) exacerbation (3) Bacterial pneumonia: Comment: Complicated with loculated right pleural effusion, status post VATS decortication 03/30, on IV ceftriaxone until 04/24/22 Code(s): J15.9 - Unspecified bacterial pneumonia (4) Tobacco dependence: Code(s): F17.200 - Nicotine dependence, unspecified, uncomplicated Plan start Doxycycline Prednisone taper continue Trelegy start benzonates as needed for cough nebulizer therapy 2-4 times a day F/U 3-4 months Medications: New doxycycline hyclate 100 mg PO BID 10 days 20 caps 0RF prednisone PO daily; Take 2 tabs daily x 5 days, then 1 tablet daily x 5 days 10 days 15 tabs 0RF albuterol sulfate 2.5 mg (3 mL) inhalation Q6H 30 days PRN 180 mL 11RF shortness of breath or wheezing benzonatate 200 mg PO BID 30 days PRN 60 caps 0RF cough Coding Level of Care Code Est Pt Level 4 (63513) Diagnoses RSV (respiratory syncytial virus infection) B33.8 Chronic obstructive pulmonary disease with acute exacerbation J44.1 COPD type: COPD with acute exacerbation Bacterial pneumonia J15.9 Tobacco dependence F17.200 Time Spent (min) 16
== END 2023-03-16 15:02 | disposition home or self-care (01) ==
PROVIDERS: PCP Internal Medicine; Visit Provider Hospitalist
DX: B33.8 Other specified viral diseases (principal); J44.1 Chronic obstructive pulmonary disease with (acute) exacerbation; J15.9 Unspecified bacterial pneumonia; F17.200 Nicotine dependence, unspecified, uncomplicated
CPT/HCPCS: 99214

== ENCOUNTER 2023-10-10 15:35 | Outpatient (REF) | payer BC, SELFPAY | END 2023-10-10 15:36 | disposition home or self-care (01) | LOC: HO.MAMMO 15:35 | PROVIDERS: PCP Internal Medicine; Visit Provider Internal Medicine | DX: Z13.89 Encounter for screening for other disorder (principal) ==

== ENCOUNTER 2023-11-01 13:27 | Outpatient (AMB) | payer BC, SELFPAY ==
[2023-11-01 13:33] VITALS: BP 136/88; PULSE 90; RESP 15; O2SAT 99; BMI 27.7
--- NOTE | 2023-11-01 13:33 | A.OFFPC_ITS ---
Vital Signs 11/01/23 13:33 Height 5 ft 8 in Weight 182 lb BMI 27.7 BP 136/88 Blood Pressure Location Rt brachial Position Sitting Respiration 15 Pulse 90 Pulse Source Pulse Oximeter Pulse Oximetry (%) 99 Oxygen Delivery Method Room Air Intake Visit Reasons: pe Intake Note: Pt is here today for PE. Allergies sulfamethoxazole Allergy (Intermediate, Verified 11/01/23 13:35) Rash bupropion Adverse Reaction (Intermediate, Verified 11/01/23 13:35) Nausea Medication List - Last Reconciled 11/01/23 by Demetrice Keene MD albuterol sulfate 90 mcg/actuation 0 mcg inhalation albuterol sulfate 2.5 mg (3 mL) inhalation Q6H PRN 30 days apple cider vinegar 300 mg PO DAILY bupropion HCl XL 300 mg PO DAILY fluoxetine 60 mg PO DAILY claudia (Zingiber officinalis) (claudia extract) 250 mg PO DAILY losartan 50 mg PO DAILY multivitamin 1 tab PO DAILY pravastatin 40 mg PO DAILY pregabalin 225 mg PO BID turmeric root extract 500 mg PO DAILY Tobacco use date assessed: 11/01/23 Dental Screening Dental Screen Date: 11/01/23 Did you have a dental visit in the last 12 months?: Yes Did you have a dental problem in the last 6 months where you did not have access to dental care?: No Was dental information given to patient?: Patient has dentist HPI pe HPI Details Pt presents for PE. Pt c/o chronic L knee pain getting worse in 1 month. Pt f/u with [facility] and will be getting cortisone inj. [facility] Medical History (Updated 11/01/23 @ 14:06 by Demetrice Keene MD) Tobacco dependence Personal history of nicotine dependence Anxiety Depression Basal cell carcinoma DJD (degenerative joint disease) Surgical History History of lung surgery History of chest tube placement History of basal cell carcinoma excision Family History Father Cancer Mother HTN (hypertension) Social History Household Members: None Housing: Apartment Do you presently have visiting nurse or other home services: No Comment: pt refusing alarms Patient Tobacco Use Status: Current everyday Tobacco user Tobacco use type: Cigarette Cigarette Packs Per Day: 1 Cigarettes Per Day: 6 e-Cigarette/Vaping Use: Former Use Second Hand Smoke Exposure: No service: No Current occupational status: employed Cognitive needs: No Hearing needs: No Vision needs: No Questionnaire PHQ-9 Over the last 2 weeks, how often have you been bothered by any of the following problems? 1. Little interest or pleasure in doing things: not at all 2. Feeling down, depressed, or hopeless: nearly every day 3. Trouble falling or staying asleep, or sleeping too much: nearly every day 4. Feeling tired or having little energy: nearly every day 5. Poor appetite or overeating: several days 6. Feeling bad about yourself - or that you are a failure or have let yourself or your family down: nearly every day 7. Trouble concentrating on things, such as reading the newspaper or watching television: several days 8. Moving or speaking so slowly that other people could have noticed. Or the opposite - being so fidgety or restless that you have been moving around a lot more than usual: several days 9. Thoughts that you would be better off or of hurting yourself in some way: not at all Total score: 15 Depression Screening Interpretation: Positive (Patient is established with psychiatrist and therapist) Depression Screening Follow-up: Existing condition and In treatment Depression Screening Done: Yes 46621 - PHQ-9 Billing: Yes Source: Developed by Drs. Pedro Masterson, Laura Perrin, Alexis Saleh and colleagues, with an educational farhad from [employer]. Thrive Questionnaire Date Thrive assessed: 11/01/23 I am a: Patient What is your living situation today?: I have a steady place to live Within the past 12 months, did the food you bought not last and you didn't have the money to get more?: Never true Within the past 12 months, did you worry whether your food would run out before you got money to buy more?: Never true Do you have trouble paying for medicines?: No Do you have trouble getting transportation to medical appointments?: No Do you have trouble paying your heating and electricity bill?: No Do you have trouble taking care of your child, family member or friend?: No Do you have trouble with day-to-day activities such as bathing, preparing meals, shopping, managing finances, etc.?: Yes Are you currently unemployed and looking for a job?: No Are you interested in more education?: No Please select the resources that you would like help with: None THRIVE Score: 0 AUDIT C Alcohol Use Questionnaire (AUDIT-C) 1. How often do you have a drink containing alcohol?: Monthly or less 2. How many drinks containing alcohol do you have on a typical day when you are drinking?: 1 or 2 3. How often do you have six or more drinks on one occasion?: Never Total Score: 1 WILLAM-7 AMB Questionnaire WILLAM-7 Date WILLAM - 7 assessed: 11/01/23 Feeling nervous, anxious, or on edge: 3 = Nearly every day Not being able to stop or control worryin = Several days Worrying too much about different things: 3 = Nearly every day Trouble relaxin = Nearly every day Being so restless that it is hard to sit still: 1 = Several days Becoming easily annoyed or irritable: 0 = Not at all Feeling afraid as if something awful might happen: 1 = Several days Total WILLAM-7 score (0-4 normal; 5-9 mild; 10-14 moderate; 15-21 severe): 12 Source: Developed by Drs. Pedro Masterson, Laura Perrin, Alexis Saleh and colleagues, with an educational farhad from [employer]. WILLAM-7 Assessment Billing WILLAM-7 Assessment Tool: WILLAM-7 Assessment 30289 Review of Systems Const All systems reviewed & are unremarkable except as noted in HPI and below Eyes Reports no additional complaints Card Reports no additional complaints Resp Reports no additional complaints GI Reports no additional complaints Reports no additional complaints Physical exam (Primary Care) Vital Signs: Last Vital Signs Pulse 90 11/01/23 13:33 Pulse Ox 99 11/01/23 13:33 Oxygen Delivery Method Room Air 11/01/23 13:33 BMI result Body Mass Index 27.7 Tobacco/Smoking Status: Tobacco use Status Tobacco use date assessed 11/01/23 11/01/23 13:41 Patient Tobacco Use Status Current everyday Tobacco 11/01/23 13:41 Tobacco use type Cigarette 11/01/23 13:41 e-Cigarette/Vaping Use Former Use 11/01/23 13:41 Depression Screening Interpretation: Positive (Patient is established with psychiatrist and therapist) Depression Screening Follow-up: Existing condition and In treatment Thrive Assessment: Date of Thrive Assessment Date Thrive assessed 05/04/22 11/01/23 13:41 Const General: no acute distress HENMT Head: Yes normal to inspection Ears: hearing grossly normal bilaterally Mouth: moist mucous membranes Neck Neck: Yes supple Resp Effort & Inspection: normal respiratory effort Auscultation: clear to auscultation bilaterally Cardio Rhythm: regular rhythm Heart sounds: S1 normal heart sound present and S2 normal heart sound present GI Inspection: Yes normal to inspection Palpation (GI): Soft to palpation Percussion: Yes normal to percussion Auscultation: normal bowel sounds Assessment and Plan Assessment & Plan (1) Depression: Comment: established with psychiatry, recently increased Fluoxetine to 60 mg 10/2023 Code(s): F32.9 - Major depressive disorder, single episode, unspecified Plan: Follow-up with psychiatrist and therapist (2) COPD (chronic obstructive pulmonary disease): Code(s): J44.9 - Chronic obstructive pulmonary disease, unspecified Qualifiers: COPD type: COPD with acute exacerbation Qualified Code(s): J44.1 - Chronic obstructive pulmonary disease with (acute) exacerbation Plan: Continue albuterol p.r.n. follow-up with pulmonology (3) HTN (hypertension): Code(s): I10 - Essential (primary) hypertension Plan: Increase losartan to 100 mg a day follow-up in 1 month (4) Annual physical exam: Code(s): Z00.00 - Encounter for general adult medical examination without abnormal findings Plan: Well-balanced diet regular physical activity discussed with the patient. 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 Patient will return for fasting blood work Orders: Orders Comprehensive [place]. Panel Fast Today F32.9 - Major depressive disorder, single episode, unspecified, I10 - Essential (primary) hypertension, J44.1 - Chronic obstructive pulmonary disease with (acute) exacerbation, Z00.00 - Encounter for general adult medical examination without abnormal findings Complete Blood Count Auto Diff Today F32.9 - Major depressive disorder, single episode, unspecified, I10 - Essential (primary) hypertension, J44.1 - Chronic obstructive pulmonary disease with (acute) exacerbation, Z00.00 - Encounter for general adult medical examination without abnormal findings Hemoglobin A1c Today F32.9 - Major depressive disorder, single episode, unspecified, I10 - Essential (primary) hypertension, J44.1 - Chronic obstructive pulmonary disease with (acute) exacerbation, Z00.00 - Encounter for general adult medical examination without abnormal findings Lipid Panel Today F32.9 - Major depressive disorder, single episode, unspecified, I10 - Essential (primary) hypertension, J44.1 - Chronic obstructive pulmonary disease with (acute) exacerbation, Z00.00 - Encounter for general adult medical examination without abnormal findings TSH reflex Free T4 Today F32.9 - Major depressive disorder, single episode, unspecified, I10 - Essential (primary) hypertension, J44.1 - Chronic obstructive pulmonary disease with (acute) exacerbation, Z00.00 - Encounter for general adult medical examination without abnormal findings Referrals Gastroenterology Referral Z00.00 - Encounter for general adult medical examination without abnormal findings Medications: New losartan 100 mg PO DAILY 90 tabs 0RF Changed From fluoxetine 20 mg PO DAILY 90 tabs 4RF To fluoxetine 60 mg PO DAILY Discontinued losartan Discontinued Reason: Doctor's Order 50 mg PO DAILY 90 tabs 3RF Coding Level of Care Code Est Pt Prev Care 40-64y(07497) Diagnoses Depression F32.9 Chronic obstructive pulmonary disease with acute exacerbation J44.1 COPD type: COPD with acute exacerbation HTN (hypertension) I10 Annual physical exam Z00.00 Additional Codes WILLAM-7 Assessment Billing - WILLAM-7 Assessment Tool: WILLAM-7 Assessment [id number] ([id number])
== END 2023-11-01 14:23 | disposition home or self-care (01) ==
LOC: HO.HMGC 13:27
PROVIDERS: PCP Internal Medicine; Visit Provider Internal Medicine
DX: Z00.00 Encounter for general adult medical examination without abnormal findings (principal); F32.9 Major depressive disorder, single episode, unspecified; J44.1 Chronic obstructive pulmonary disease with (acute) exacerbation; I10 Essential (primary) hypertension
CPT/HCPCS: 99396

== ENCOUNTER 2024-03-24 12:36 | Outpatient (AMB) | payer BC, SELFPAY ==
[2024-03-24 12:38] VITALS: BP 120/76; PULSE 81; O2SAT 96; BMI 28.9
--- NOTE | 2024-03-24 12:38 | MHC.PC.OV ---
Vital Signs 03/24/24 12:38 Height 5 ft 8 in Weight 190 lb BMI 28.9 BP 120/76 Blood Pressure Location Rt brachial Position Sitting Pulse 81 Pulse Source Pulse Oximeter Pulse Oximetry (%) 96 Oxygen Delivery Method Room Air Intake Visit Reasons: 1 Month Follow up yumiko from 01/13 Intake Note: Pt is here today for 1 month follow up visit. Allergies sulfamethoxazole Allergy (Intermediate, Verified 03/24/24 12:40) Rash bupropion Adverse Reaction (Intermediate, Verified 03/24/24 12:40) Nausea Medication List - Last Reconciled 03/24/24 by Demetrice Keene MD albuterol sulfate 90 mcg/actuation 0 mcg inhalation albuterol sulfate 2.5 mg (3 mL) inhalation Q6H PRN 30 days apple cider vinegar 300 mg PO DAILY bupropion HCl XL 300 mg PO DAILY fluoxetine 60 mg PO DAILY hgqbvaickzl-idviffmad-gxppbaiz 100-62.5-25 mcg (Trelegy Ellipta) 1 inh inhalation DAILY claudia (Zingiber officinalis) (claudia extract) 250 mg PO DAILY losartan 100 mg PO DAILY multivitamin 1 tab PO DAILY pravastatin 40 mg PO DAILY pregabalin 225 mg PO BID turmeric root extract 500 mg PO DAILY Tobacco use date assessed: 03/24/24 Dental Screening Dental Screen Date: 03/24/24 Did you have a dental visit in the last 12 months?: Yes Did you have a dental problem in the last 6 months where you did not have access to dental care?: No Was dental information given to patient?: Patient has dentist HPI 1 Month Follow up yumiko from 01/13 HPI Details Pt presents for f/u HTN, hyperlipid, stable on meds. Patient had upper respiratory infection 2 weeks ago and completed a course of Augmentin and Z-Vincenzo. She is feeling better but reports persistent cough and wheezing. She has been using albuterol as needed. Patient used to use Trelegy but stopped for unclear reasons. She continues to smoke a half a pack a day and is planning to quit. Chronic depression stable on current medications and patient follows up with psychiatrist. [facility] Medical History (Updated 03/24/24 @ 14:03 by Demetrice Keene MD) Tobacco dependence Personal history of nicotine dependence Anxiety Depression Basal cell carcinoma DJD (degenerative joint disease) Surgical History History of lung surgery History of chest tube placement History of basal cell carcinoma excision Family History Father Cancer Mother HTN (hypertension) Social History Household Members: None Housing: Apartment Do you presently have visiting nurse or other home services: No Comment: pt refusing alarms Patient Tobacco Use Status: Current everyday Tobacco user Tobacco use type: Cigarette Cigarette Packs Per Day: 1 Cigarettes Per Day: 6 e-Cigarette/Vaping Use: Former Use Second Hand Smoke Exposure: No service: No Current occupational status: employed Cognitive needs: No Hearing needs: No Vision needs: No Questionnaire PHQ-9 Over the last 2 weeks, how often have you been bothered by any of the following problems? 1. Little interest or pleasure in doing things: several days 2. Feeling down, depressed, or hopeless: several days 3. Trouble falling or staying asleep, or sleeping too much: several days 4. Feeling tired or having little energy: several days 5. Poor appetite or overeating: several days 6. Feeling bad about yourself - or that you are a failure or have let yourself or your family down: several days 7. Trouble concentrating on things, such as reading the newspaper or watching television: not at all 8. Moving or speaking so slowly that other people could have noticed. Or the opposite - being so fidgety or restless that you have been moving around a lot more than usual: not at all 9. Thoughts that you would be better off or of hurting yourself in some way: not at all Total score: 6 Depression Screening Interpretation: Negative Depression Screening Done: Yes 14211 - PHQ-9 Billing: Yes Source: Developed by Drs. Pedro Masterson, Laura Perrin, Alexis Saleh and colleagues, with an educational farhad from [employer]. Thrive Questionnaire Date Thrive assessed: 03/24/24 I am a: Patient What is your living situation today?: I have a steady place to live Within the past 12 months, did the food you bought not last and you didn't have the money to get more?: Never true Within the past 12 months, did you worry whether your food would run out before you got money to buy more?: Never true Do you have trouble paying for medicines?: No Do you have trouble getting transportation to medical appointments?: No Do you have trouble paying your heating and electricity bill?: No Do you have trouble taking care of your child, family member or friend?: No Do you have trouble with day-to-day activities such as bathing, preparing meals, shopping, managing finances, etc.?: No Are you currently unemployed and looking for a job?: No Are you interested in more education?: No Please select the resources that you would like help with: None THRIVE Score: 0 AUDIT C Alcohol Use Questionnaire (AUDIT-C) 1. How often do you have a drink containing alcohol?: Monthly or less 2. How many drinks containing alcohol do you have on a typical day when you are drinking?: 1 or 2 3. How often do you have six or more drinks on one occasion?: Never Total Score: 1 WILLAM-7 AMB Questionnaire WILLAM-7 Date WILLAM - 7 assessed: 03/24/24 Feeling nervous, anxious, or on edge: 1 = Several days Not being able to stop or control worryin = Not at all Worrying too much about different things: 1 = Several days Trouble relaxin = Several days Being so restless that it is hard to sit still: 1 = Several days Becoming easily annoyed or irritable: 0 = Not at all Feeling afraid as if something awful might happen: 0 = Not at all Total WILLMA-7 score (0-4 normal; 5-9 mild; 10-14 moderate; 15-21 severe): 4 Source: Developed by Drs. Pedro Masterson, Laura Perrin, Alexis Saleh and colleagues, with an educational farhad from [employer]. WILLAM-7 Assessment Billing WILLAM-7 Assessment Tool: WILLAM-7 Assessment 61886 Review of Systems Const All systems reviewed & are unremarkable except as noted in HPI and below ENT Reports no additional complaints Card Reports no additional complaints Resp Reports no additional complaints GI Reports no additional complaints Reports no additional complaints Physical exam (Primary Care) Vital Signs: Last Vital Signs Pulse 81 03/24/24 12:38 BP 120/76 03/24/24 12:38 Pulse Ox 96 03/24/24 12:38 Oxygen Delivery Method Room Air 03/24/24 12:38 BMI result Body Mass Index 28.9 Tobacco/Smoking Status: Tobacco use Status Tobacco use date assessed 03/24/24 03/24/24 12:43 Patient Tobacco Use Status Current everyday Tobacco 03/24/24 12:43 Tobacco use type Cigarette 03/24/24 12:43 e-Cigarette/Vaping Use Former Use 03/24/24 12:43 Depression Screening Interpretation: Negative Thrive Assessment: Date of Thrive Assessment Date Thrive assessed 01/11/24 03/24/24 12:43 Const General: no acute distress HENMT Head: Yes normal to inspection Face and sinus: Yes normal facial exam Eyes General: appearance normal, both eyes and all related structures Neck Neck: Yes supple Resp Effort & Inspection: normal respiratory effort Auscultation: rhonchi, wheezes and diminished lung sounds Cardio Rhythm: regular rhythm Heart sounds: S1 normal heart sound present and S2 normal heart sound present Coding Level of Care Code Est Pt Level 4 (68679) Diagnoses Depression F32.9 Chronic obstructive pulmonary disease with acute exacerbation J44.1 COPD type: COPD with acute exacerbation HTN (hypertension) I10 Tobacco dependence F17.200 Additional Codes WILLAM-7 Assessment Billing - WILLAM-7 Assessment Tool: WILLAM-7 Assessment 87471 ([id number]) PHQ-9 - 90405 - PHQ-9 Billing: Yes ([id number]) Assessment & Plan Assessment & Plan (1) Depression: Comment: established with psychiatry, recently increased Fluoxetine to 60 mg 10/2023 Code(s): F32.9 - Major depressive disorder, single episode, unspecified Category: Medical Plan: Continue current medications (2) COPD (chronic obstructive pulmonary disease): Code(s): J44.9 - Chronic obstructive pulmonary disease, unspecified Category: Medical Qualifiers: COPD type: COPD with acute exacerbation Qualified Code(s): J44.1 - Chronic obstructive pulmonary disease with (acute) exacerbation Plan: Restart Trelegy tobacco quitting discussed with the patient. Continue albuterol as needed follow-up in 1 month (3) HTN (hypertension): Code(s): I10 - Essential (primary) hypertension Category: Medical Plan: Continue losartan return for fasting blood work (4) Tobacco dependence: Comment: 1/2 PPD X 30 yrs Code(s): F17.200 - Nicotine dependence, unspecified, uncomplicated Category: Medical Plan: Tobacco quitting discussed with the Orders: Orders Comprehensive [place]. Panel Fast Today F32.9 - Major depressive disorder, single episode, unspecified, F41.9 - Anxiety disorder, unspecified, I10 - Essential (primary) hypertension, J44.1 - Chronic obstructive pulmonary disease with (acute) exacerbation Lipid Panel Today F32.9 - Major depressive disorder, single episode, unspecified, F41.9 - Anxiety disorder, unspecified, I10 - Essential (primary) hypertension, J44.1 - Chronic obstructive pulmonary disease with (acute) exacerbation Hemoglobin A1c Today F32.9 - Major depressive disorder, single episode, unspecified, F41.9 - Anxiety disorder, unspecified, I10 - Essential (primary) hypertension, J44.1 - Chronic obstructive pulmonary disease with (acute) exacerbation Vitamin D 25-OH Total Today F32.9 - Major depressive disorder, single episode, unspecified, F41.9 - Anxiety disorder, unspecified, I10 - Essential (primary) hypertension, J44.1 - Chronic obstructive pulmonary disease with (acute) exacerbation MM screening mammo BI Today F17.200 - Nicotine dependence, unspecified, uncomplicated, I10 - Essential (primary) hypertension, J44.1 - Chronic obstructive pulmonary disease with (acute) exacerbation, Z12.31 - Encounter for screening mammogram for malignant neoplasm of breast Complete Blood Count Auto Diff Today F32.9 - Major depressive disorder, single episode, unspecified, F41.9 - Anxiety disorder, unspecified, I10 - Essential (primary) hypertension, J44.1 - Chronic obstructive pulmonary disease with (acute) exacerbation TSH reflex Free T4 Today F32.9 - Major depressive disorder, single episode, unspecified, F41.9 - Anxiety disorder, unspecified, I10 - Essential (primary) hypertension, J44.1 - Chronic obstructive pulmonary disease with (acute) exacerbation CA echo transthoracic complete Today F17.200 - Nicotine dependence, unspecified, uncomplicated, I10 - Essential (primary) hypertension, J44.1 - Chronic obstructive pulmonary disease with (acute) exacerbation XR chest 2V Today J44.1 - Chronic obstructive pulmonary disease with (acute) exacerbation, R05.9 - Cough, unspecified Medications: New soadzukafhv-aheslaicr-psfeyvry 100-62.5-25 mcg (Trelegy Ellipta) 1 inh inhalation DAILY 60 ea 0RF Refilled albuterol sulfate 2.5 mg (3 mL) inhalation Q6H 30 days PRN 180 mL 11RF shortness of breath or wheezing
== END 2024-03-24 13:45 | disposition home or self-care (01) ==
LOC: HO.HMCC 12:36
PROVIDERS: PCP Internal Medicine; Visit Provider Internal Medicine
DX: F32.9 Major depressive disorder, single episode, unspecified (principal); J44.1 Chronic obstructive pulmonary disease with (acute) exacerbation; I10 Essential (primary) hypertension; F17.200 Nicotine dependence, unspecified, uncomplicated

== ENCOUNTER → 2024-03-24 12:36 | Outpatient (BNVA) | payer BC, SELFPAY | PROVIDERS: PCP Internal Medicine; Visit Provider Internal Medicine | DX: F32.9 Major depressive disorder, single episode, unspecified (principal); J44.1 Chronic obstructive pulmonary disease with (acute) exacerbation; I10 Essential (primary) hypertension; F17.210 Nicotine dependence, cigarettes, uncomplicated; Z79.899 Other long term (current) drug therapy | CPT/HCPCS: 96127 ==

== ENCOUNTER → 2024-04-16 13:48 | Outpatient (REF) | payer BC, SELFPAY ==
--- NOTE | 2024-04-16 13:52 | CA_ITS ---
Transthoracic Echocardiogram Patient (Last, First, Middle): Sheela Hyde, Gender: Female Date of : 1960 Age: 64 Procedure Date: 04/16/2024 Procedure Type: Transthoracic Echocardiogram Location: OP Height: 172.72 cm Weight: 86.18 kg BSA: 2.00 m2 Heart Rate: bpm BP: 140 / 78 mmHg Flat Drier: TO Referring MD: Demetrice Keene MD Symptoms: I10 - Essential (primary) hypertension Study Quality: Fair/Contrast ECG Rhythm: Sinus Conclusions: - The left ventricular systolic function is normal. The calculated ejection fraction is 61% by biplane method. - There is mild mitral valve regurgitation. - There is mild dilatation of the ascending aorta measuring 3.90 cm. - The inferior vena cava is dilated and collapses less than 50% with inspiration. Findings Procedure Information Contrast agent, definity, is being given per protocol without apparent complications. Left Ventricle Normal left ventricular cavity size. The left ventricular systolic function is normal. The calculated ejection fraction is 61% by biplane method. There is no evidence of regional wall motion abnormalities. Diastolic function is normal for age. There is mild septal and mild basal asymmetric hypertrophy. Right Ventricle Normal right ventricular cavity size and systolic function. Atria Possible left atrial enlargement, but more likely overestimate on measurements. The right atrium is normal in size. Aortic Valve There is a normal trileaflet aortic valve. There is no aortic valve stenosis. There is no aortic valve regurgitation. Mitral Valve The mitral valve appears normal. There is mild mitral valve regurgitation. There is no mitral valve stenosis. Pulmonic Valve There is trace pulmonic valve regurgitation. Tricuspid Valve There is trace tricuspid valve regurgitation. There is no evidence of pulmonary hypertension. Great Vessels The aortic arch is normal in size. There is mild dilatation of the ascending aorta measuring 3.90 cm. Venous The inferior vena cava is dilated and collapses less than 50% with inspiration. Pericardium/Pleural There is no evidence of pericardial effusion. Prior Study Comparison Changes noted compared to prior study dated: 04/03/2012. Slight increase in ascending aortic size. Measurements 2D Linear Measurements IVSd: 1.13 0.6-0.9/0.6-1.0 cm LVIDd: 5.27 3.9-5.3/4.2-5.9 cm LVIDd Index: 2.64 2.4-3.2/2.2-3.1 cm/m2 LVIDs: 3.47 2.0-3.6 cm LVPWd: 0.93 0.7-1.1 cm LA Diam: 4.00 2.7-3.8/3.0-4.0 cm LAIDs Index: 2.00 1.5-2.3 cm/m2 LV Mass: 257.70 67-162/88-224 g LV Mass Index: 128.85 43-95/49-115 g/m2 LVOT Diam: 2.10 3.0+(-)1.3 cm 2D Systolic Function EF 4C: 62.60 >55% EF 2C: 58.50 >55% EF BiP: 60.60 >55% Mitral Valve MV Pk E: 0.91 MV PK A: 0.48 MV Decel Time: 195.00 E/A: 1.90 E'Lateral: 9.79 E'Medial: 10.00 E/E' Med: 9.10 E/E' Lat: 9.30 PHT: 57.00 MVA PHT: 3.86 Decel [place]: 4.67 Aortic Valve AoV Pk Myke: 1.69 AoV Mn Myke: 1.14 AoV VTI: 0.35 AoV Pk Grad: 11.00 Aov Mn Grad: 6.00 CHASE Cont.VTI: 2.62 LVOT LVOT Pk Myke: 1.19 LVOT Mn Myke: 0.76 LVOT VTI: 0.27 LVOT Pk Grad: 6.00 LVOT Mn Grad: 3.00 LVOT Diam: 2.10 LVOT Area: 3.46 Diastolic Function MV Pk E: 0.91 MV Pk A: 0.48 E/A: 1.90 E'Medial: 10.00 E/E' Med: 9.10 E' Laterial: 9.79 E/E' Lat: 9.30 Right Ventricle TAPSE (mm): 23.50 TVS' Myke: 13.20 Tricuspid Valve TR Pk Myke: 1.83 TR Pk Grad: 13.00 RA Press: 15.00 RVSP: 28.00 Great Vessels Aorta Sinus of Valsalva: 3.75 2.0-3.[address] [place]: 2.87 1.7-3.4 cm Ao Asc: 3.90 2.1-3.4 cm Ao Arch: 3.00 Updated in Other Vendor System with Status of Final Ruslan Hirsch MD electronically signed on 04/18/2024 2:13:25 PM with status of Final
== END ==
LOC: HO.CARD 13:48
PROVIDERS: PCP Internal Medicine; Visit Provider Internal Medicine
DX: I10 Essential (primary) hypertension (principal); J44.1 Chronic obstructive pulmonary disease with (acute) exacerbation; F17.200 Nicotine dependence, unspecified, uncomplicated
CPT/HCPCS: 93306; Q9957

== ENCOUNTER 2024-04-29 13:44 | Outpatient (AMB) | payer BC, SELFPAY ==
[2024-04-29 13:54] VITALS: BP 136/78; PULSE 78; RESP 16; TEMP 37.2; O2SAT 95; BMI 28.9
--- NOTE | 2024-04-29 13:54 | MHC.PC.OV ---
Vital Signs 04/29/24 13:54 Height 5 ft 8 in Weight 190 lb BMI 28.9 BP 136/78 Blood Pressure Location Lt brachial Position Sitting Respiration 16 Pulse 78 Pulse Source Pulse Oximeter Temp 98.9 F Temp Source Oral Pulse Oximetry (%) 95 Oxygen Delivery Method Room Air Intake Visit Reasons: 1 Month Follow up Intake Note: Pt is here today for 1 month follow up visit. Allergies sulfamethoxazole Allergy (Intermediate, Verified 04/29/24 13:58) Rash bupropion Adverse Reaction (Intermediate, Verified 04/29/24 13:58) Nausea Tobacco use date assessed: 04/29/24 Dental Screening Dental Screen Date: 03/24/24 HPI 1 Month Follow up HPI Details Patient presents for the follow-up of COPD hypertension hyperlipidemia. Patient reports improve shortness of breath and decreased wheezing since starting Trelegy. Patient continues to smoke but is trying to quit. [facility] Medical History (Updated 03/24/24 @ 14:03 by Demetrice Keene MD) Tobacco dependence Personal history of nicotine dependence Anxiety Depression Basal cell carcinoma DJD (degenerative joint disease) Surgical History History of lung surgery History of chest tube placement History of basal cell carcinoma excision Family History Father Cancer Mother HTN (hypertension) Social History Household Members: None Housing: Apartment Do you presently have visiting nurse or other home services: No Comment: pt refusing alarms Patient Tobacco Use Status: Current everyday Tobacco user Tobacco use type: Cigarette Cigarette Packs Per Day: 1 Cigarettes Per Day: 6 e-Cigarette/Vaping Use: Former Use Second Hand Smoke Exposure: No service: No Current occupational status: employed Cognitive needs: No Hearing needs: No Vision needs: No Questionnaire PHQ-9 Over the last 2 weeks, how often have you been bothered by any of the following problems? 1. Little interest or pleasure in doing things: not at all 2. Feeling down, depressed, or hopeless: not at all 3. Trouble falling or staying asleep, or sleeping too much: several days 4. Feeling tired or having little energy: several days 5. Poor appetite or overeating: not at all 6. Feeling bad about yourself - or that you are a failure or have let yourself or your family down: several days 7. Trouble concentrating on things, such as reading the newspaper or watching television: not at all 8. Moving or speaking so slowly that other people could have noticed. Or the opposite - being so fidgety or restless that you have been moving around a lot more than usual: not at all 9. Thoughts that you would be better off or of hurting yourself in some way: not at all Total score: 3 Depression Screening Interpretation: Negative Depression Screening Done: Yes 63643 - PHQ-9 Billing: Yes Source: Developed by Drs. Pedro Masterson, Laura Perrin, Alexis Saleh and colleagues, with an educational farhad from [employer]. Thrive Questionnaire Date Thrive assessed: 03/24/24 I am a: Patient What is your living situation today?: I have a steady place to live Within the past 12 months, did the food you bought not last and you didn't have the money to get more?: Never true Within the past 12 months, did you worry whether your food would run out before you got money to buy more?: Never true Do you have trouble paying for medicines?: No Do you have trouble getting transportation to medical appointments?: No Do you have trouble paying your heating and electricity bill?: Yes Do you have trouble taking care of your child, family member or friend?: No Do you have trouble with day-to-day activities such as bathing, preparing meals, shopping, managing finances, etc.?: No Are you currently unemployed and looking for a job?: No Are you interested in more education?: No Please select the resources that you would like help with: None Currently or been in a relationship where the following occur: No concerns reported THRIVE Score: 1 AUDIT C Alcohol Use Questionnaire (AUDIT-C) 1. How often do you have a drink containing alcohol?: 2-4 times a month 2. How many drinks containing alcohol do you have on a typical day when you are drinking?: 1 or 2 3. How often do you have six or more drinks on one occasion?: Never Total Score: 2 WILLAM-7 AMB Questionnaire WILLAM-7 Date WILLAM - 7 assessed: 03/24/24 Feeling nervous, anxious, or on edge: 0 = Not at all Not being able to stop or control worryin = Not at all Worrying too much about different things: 0 = Not at all Trouble relaxin = Not at all Being so restless that it is hard to sit still: 0 = Not at all Becoming easily annoyed or irritable: 0 = Not at all Feeling afraid as if something awful might happen: 0 = Not at all Total WILLAM-7 score (0-4 normal; 5-9 mild; 10-14 moderate; 15-21 severe): 0 Source: Developed by Drs. Pedro Masterson, Laura Perrin, Alexis Saleh and colleagues, with an educational farhad from [employer]. Review of Systems Const All systems reviewed & are unremarkable except as noted in HPI and below Eyes Reports no additional complaints ENT Reports no additional complaints Card Reports no additional complaints Resp Reports no additional complaints GI Reports no additional complaints Reports no additional complaints Physical exam (Primary Care) Vital Signs: Last Vital Signs Temp 98.9 F 04/29/24 13:54 Pulse 78 04/29/24 13:54 Resp 16 04/29/24 13:54 BP 136/78 04/29/24 13:54 Pulse Ox 95 04/29/24 13:54 Oxygen Delivery Method Room Air 04/29/24 13:54 BMI result Body Mass Index 28.9 Tobacco/Smoking Status: Tobacco use Status Tobacco use date assessed 04/29/24 04/29/24 14:03 Patient Tobacco Use Status Current everyday Tobacco 04/29/24 13:55 Tobacco use type Cigarette 04/29/24 13:55 e-Cigarette/Vaping Use Former Use 04/29/24 13:55 PHQ-9: PHQ-9 Score PHQ-9: Total score 3 04/29/24 13:55 Depression Screening Interpretation: Negative Thrive Assessment: Date of Thrive Assessment Date Thrive assessed 03/24/24 04/29/24 13:55 Currently or been in a relationship where the following occur: No concerns reported Const General: no acute distress HENMT Head: Yes normal to inspection Neck Neck: Yes no lymphadenopathy and Yes supple Resp Effort & Inspection: normal respiratory effort Auscultation: wheezes and diminished lung sounds Cardio Rhythm: regular rhythm Heart sounds: S1 normal heart sound present and S2 normal heart sound present Coding Level of Care Code Est Pt Level 4 (07545) Diagnoses Chronic obstructive pulmonary disease with acute exacerbation J44.1 COPD type: COPD with acute exacerbation Smoker F17.200 HTN (hypertension) I10 Additional Codes PHQ-9 - 97540 - PHQ-9 Billing: Yes ([id number]) Assessment & Plan Assessment & Plan (1) COPD (chronic obstructive pulmonary disease): Code(s): J44.9 - Chronic obstructive pulmonary disease, unspecified Category: Medical Qualifiers: COPD type: COPD with acute exacerbation Qualified Code(s): J44.1 - Chronic obstructive pulmonary disease with (acute) exacerbation Plan: Increase Trelegy to 200 mcg continue albuterol p.r.n.. Obtain pulmonary function test (2) Smoker: Comment: 1 PPD X30 yrs Code(s): F17.200 - Nicotine dependence, unspecified, uncomplicated Category: Medical Plan: Referred to lung cancer screening program (3) HTN (hypertension): Code(s): I10 - Essential (primary) hypertension Category: Medical Plan: Continue current medications follow-up in 2 months Orders: Orders PFT pulmonary function test Today J44.1 - Chronic obstructive pulmonary disease with (acute) exacerbation Referrals Thoracic/General Surgery Referral F17.200 - Nicotine dependence, unspecified, uncomplicated Medications: New vnwssiwkzmp-vqmibkurj-qcsvrdfk 200-62.5-25 mcg (Trelegy Ellipta) 1 inh inhalation DAILY 60 ea 5RF
== END 2024-04-29 14:36 | disposition home or self-care (01) ==
PROVIDERS: PCP Internal Medicine; Visit Provider Internal Medicine
DX: J44.1 Chronic obstructive pulmonary disease with (acute) exacerbation (principal); F17.200 Nicotine dependence, unspecified, uncomplicated; I10 Essential (primary) hypertension

== ENCOUNTER → 2024-04-29 13:44 | Outpatient (BNVA) | payer BC, SELFPAY | PROVIDERS: PCP Internal Medicine; Visit Provider Internal Medicine | DX: J44.1 Chronic obstructive pulmonary disease with (acute) exacerbation (principal); I10 Essential (primary) hypertension; F17.210 Nicotine dependence, cigarettes, uncomplicated | CPT/HCPCS: 96127 ==

== ENCOUNTER 2024-05-26 11:58 | Outpatient (AMB) | payer BC, SELFPAY ==
--- NOTE | 2024-05-26 12:55 | AM.OFFWIN_ITS ---
Intake Vital Signs 05/26/24 12:56 Weight 193 lb BP 130/80 Blood Pressure Location Rt brachial Position Sitting Pulse 96 Pulse Source Pulse Oximeter Pulse Oximetry (%) 97 Oxygen Delivery Method Room Air Intake Visit Reasons: EP Clearance for work (OK per Polina) Intake Note: Patient here for a return to work as she was out sick for about 3 weeks. Patient Tobacco Use Status: Current everyday Tobacco user Allergies sulfamethoxazole Allergy (Intermediate, Verified 05/26/24 13:01) Rash bupropion Adverse Reaction (Intermediate, Verified 05/26/24 13:01) Nausea Do you need a note to return to daycare/school/sports/work: Yes HPI HPI Comments History of Present Illness Details 64 y/o female patient who presents to [facility] walk in clinic asking for work clearance Note. She was out of work for 3 weeks due to Bronchitis. [facility] Medical History (Updated 05/26/24 @ 13:20 by Polina Nails NP) Tobacco dependence Personal history of nicotine dependence Anxiety Depression Basal cell carcinoma DJD (degenerative joint disease) Surgical History History of lung surgery History of chest tube placement History of basal cell carcinoma excision Family History Father Cancer Mother HTN (hypertension) Social History Household Members: None Housing: Apartment Do you presently have visiting nurse or other home services: No Comment: pt refusing alarms Patient Tobacco Use Status: Current everyday Tobacco user Tobacco use type: Cigarette Cigarette Packs Per Day: 1 Cigarettes Per Day: 6 e-Cigarette/Vaping Use: Former Use Second Hand Smoke Exposure: No service: No Current occupational status: employed Cognitive needs: No Hearing needs: No Vision needs: No Review of Systems Const All systems reviewed & are unremarkable except as noted in HPI and below Physical Exam Vital Signs: Last Vital Signs Pulse 96 05/26/24 12:56 BP 130/80 05/26/24 12:56 Pulse Ox 97 05/26/24 12:56 Oxygen Delivery Method Room Air 05/26/24 12:56 Const General: cooperative, no acute distress and ill appearing (But not in distress) other Nutritional Appearance: overweight Orientation/consciousness: patient oriented x3 Resp Effort & Inspection: normal respiratory effort and able to speak in complete sentences Auscultation: clear to auscultation bilaterally, no crackles, no rales, no rhonchi and no wheezes Cardio Heart sounds: S1 normal heart sound present and S2 normal heart sound present Skin Other: Skin Warm, dry and Pale looking. Neuro General: patient oriented x3, gait normal and moves all extremities Psych Speech and movement: Normal speech and movement present Assessment & Plan Assessment & Plan (1) Cough: Code(s): R05.9 - Cough, unspecified Qualifiers: Cough type: subacute Qualified Code(s): R05.2 - Subacute cough Plan: Recovering well at home. Medical clearance letter given to patient. Coding Level of Care Code Est Pt Level 3 (18709) Diagnoses Subacute cough R05.2 Cough type: subacute Time Spent (min) 15
[2024-05-26 12:56] VITALS: BP 130/80; PULSE 96; O2SAT 97
== END 2024-05-26 13:32 | disposition home or self-care (01) ==
PROVIDERS: PCP Internal Medicine; Visit Provider Nurse Practitioner Family
DX: R05.2 Subacute cough (principal)

== ENCOUNTER → 2024-05-26 11:58 | Outpatient (BNVA) | payer BC, SELFPAY | PROVIDERS: PCP Internal Medicine ==

== ENCOUNTER 2025-01-22 13:10 | Outpatient (AMB) | payer BC, SELFPAY ==
--- NOTE | 2025-01-22 13:35 | A.OFFPC_ITS ---
Vital Signs 01/22/25 13:36 Height 5 ft 8 in Weight 197 lb BMI 30.0 BP 126/80 Blood Pressure Location Lt brachial Position Sitting Pulse 77 Pulse Source Pulse Oximeter Temp 97.8 F Temp Source Oral Pulse Oximetry (%) 94 Oxygen Delivery Method Room Air Intake Visit Reasons: Reschedule Blood pressure RE Intake Note: Pt is here today for a follow up visit on BP. Allergies sulfamethoxazole Allergy (Intermediate, Verified 01/22/25 13:37) Rash bupropion Adverse Reaction (Intermediate, Verified 01/22/25 13:37) Nausea Medication List - Last Reconciled 01/22/25 by Demetrice Keene MD albuterol sulfate 90 mcg/actuation 0 mcg inhalation albuterol sulfate 2.5 mg (3 mL) inhalation Q6H PRN 30 days apple cider vinegar 300 mg PO DAILY bupropion HCl XL 300 mg PO DAILY fluoxetine 60 mg PO DAILY zpheewfcinl-ycsueodos-viqgpinw 100-62.5-25 mcg (Trelegy Ellipta) 1 ea inhalation DAILY claudia (Zingiber officinalis) (claudia extract) 250 mg PO DAILY losartan 100 mg PO DAILY multivitamin 1 tab PO DAILY pravastatin 40 mg PO DAILY pregabalin 225 mg PO BID Trelegy Ellipta 200-62.5-25 mcg (qykaraivnlo-jmnshclpe-ccvwwhzi) 1 ea inhalation DAILY NS turmeric root extract 500 mg PO DAILY valsartan-hydrochlorothiazide 160-25 mg 1 tab PO DAILY Tobacco use date assessed: 01/22/25 Dental Screening Dental Screen Date: 03/24/24 HPI Reschedule Blood pressure RE HPI Details Pt presents for follow-up of hypertension hyperlipidemia chronic anxiety and depression. [facility] Medical History (Updated 01/22/25 @ 21:52 by Demetrice Keene MD) COPD (chronic obstructive pulmonary disease) Nicotine dependence, cigarettes, uncomplicated Anxiety Depression Basal cell carcinoma DJD (degenerative joint disease) Surgical History History of lung surgery History of chest tube placement History of basal cell carcinoma excision Family History Father Cancer Mother HTN (hypertension) Social History Household Members: None Housing: Apartment Do you presently have visiting nurse or other home services: No Comment: pt refusing alarms Patient Tobacco Use Status: Current everyday Tobacco user Tobacco use type: Cigarette Cigarette Packs Per Day: 1 Cigarettes Per Day: 6 e-Cigarette/Vaping Use: Former Use Second Hand Smoke Exposure: No service: No Current occupational status: employed Cognitive needs: No Hearing needs: No Vision needs: No Questionnaire Thrive Questionnaire Date Thrive assessed: 04/29/24 I am a: Patient What is your living situation today?: I have a steady place to live Within the past 12 months, did the food you bought not last and you didn't have the money to get more?: Never true Within the past 12 months, did you worry whether your food would run out before you got money to buy more?: Never true Do you have trouble paying for medicines?: No Do you have trouble getting transportation to medical appointments?: No Do you have trouble paying your heating and electricity bill?: Yes Do you have trouble taking care of your child, family member or friend?: No Do you have trouble with day-to-day activities such as bathing, preparing meals, shopping, managing finances, etc.?: No Are you currently unemployed and looking for a job?: No Are you interested in more education?: No Please select the resources that you would like help with: None Currently or been in a relationship where the following occur: No concerns reported THRIVE Score: 1 WILLAM-7 AMB Questionnaire WILLAM-7 Date WILLAM - 7 assessed: 03/24/24 Source: Developed by Drs. Pedro Masterson, Laura Perrin, Alexis Saleh and colleagues, with an educational farhad from [employer]. Review of Systems Const All systems reviewed & are unremarkable except as noted in HPI and below Eyes Reports no additional complaints ENT Reports no additional complaints Card Reports no additional complaints Resp Reports no additional complaints GI Reports no additional complaints Physical exam (Primary Care) Vital Signs: Last Vital Signs Temp 97.8 F 01/22/25 13:36 Pulse 77 01/22/25 13:36 BP 126/80 01/22/25 13:36 Pulse Ox 94 01/22/25 13:36 Oxygen Delivery Method Room Air 01/22/25 13:36 BMI result Body Mass Index 30.0 Tobacco/Smoking Status: Tobacco use Status Tobacco use date assessed 01/22/25 01/22/25 13:41 Patient Tobacco Use Status Current everyday Tobacco 01/22/25 13:41 Tobacco use type Cigarette 01/22/25 13:41 e-Cigarette/Vaping Use Former Use 01/22/25 13:41 Thrive Assessment: Date of Thrive Assessment Date Thrive assessed 04/29/24 01/22/25 13:41 Currently or been in a relationship where the following occur: No concerns reported Const General: no acute distress HENMT Mouth: Normal oral and palatal mucosa present Eyes General: appearance normal, both eyes and all related structures Neck Neck: Yes supple Resp Effort & Inspection: normal respiratory effort Auscultation: clear to auscultation bilaterally Cardio Rhythm: regular rhythm Heart sounds: S1 normal heart sound present and S2 normal heart sound present Coding Level of Care Code Est Pt Level 4 (03962) Diagnoses HTN (hypertension) I10 Hyperlipidemia E78.5 Chronic obstructive pulmonary disease with acute exacerbation J44.1 COPD type: COPD with acute exacerbation Assessment & Plan Assessment & Plan (1) HTN (hypertension): Code(s): I10 - Essential (primary) hypertension Category: Medical Plan: Patient's blood pressure has been elevated during dentist office visit. Losartan will be changed to valsartan with HCTZ 160/25 , low-sodium diet discussed with the patient she will return in 2 weeks for blood test and follow- up in 3 weeks (2) Hyperlipidemia: Code(s): E78.5 - Hyperlipidemia, unspecified Category: Medical Plan: Continue statin check lipid profile (3) COPD (chronic obstructive pulmonary disease): Comment: Controlled on Trelegy Code(s): J44.9 - Chronic obstructive pulmonary disease, unspecified Category: Medical Qualifiers: COPD type: COPD with acute exacerbation Qualified Code(s): J44.1 - Chronic obstructive pulmonary disease with (acute) exacerbation Plan: Continue Trelegy Orders: Orders Comprehensive [place]. Panel Fast 2 Weeks E78.5 - Hyperlipidemia, unspecified, I10 - Essential (primary) hypertension Complete Blood Count Auto Diff 2 Weeks E78.5 - Hyperlipidemia, unspecified, I10 - Essential (primary) hypertension Lipid Panel 2 Weeks E78.5 - Hyperlipidemia, unspecified, I10 - Essential (primary) hypertension TSH reflex Free T4 2 Weeks E78.5 - Hyperlipidemia, unspecified, I10 - Essential (primary) hypertension Vitamin D 25-OH Total 2 Weeks E78.5 - Hyperlipidemia, unspecified, I10 - Essential (primary) hypertension Medications: New valsartan-hydrochlorothiazide 160-25 mg 1 tab PO DAILY 90 tabs 0RF
[2025-01-22 13:36] VITALS: BP 126/80; PULSE 77; TEMP 36.6; O2SAT 94
--- OUTSIDE RECORDS SUMMARY | 2025-01-22 16:04 | XMS_ITS ---
Author Name [facility] Organization Unknown Encounters Encounter Type Encounter Reason Primary Diagnosis Location Date Ambulatory [facility] [place] 07/12/2022
== END 2025-01-22 17:07 | disposition home or self-care (01) ==
LOC: HO.HMCC 13:11
PROVIDERS: PCP Internal Medicine; Visit Provider Internal Medicine
DX: I10 Essential (primary) hypertension (principal); E78.5 Hyperlipidemia, unspecified; J44.1 Chronic obstructive pulmonary disease with (acute) exacerbation

== ENCOUNTER 2025-02-23 11:27 | Outpatient (REF) | payer BC, SELFPAY ==
[2025-02-23 13:51] LABS: Hematocrit 34.7 % (37.0-47.0); Hemoglobin 11.2 g/dl (12.0-16.0); Imm Gran Abs Auto 0.15 X10*3/uL (0.00-0.03); Imm Gran Pct Auto 0.8 % (0.0-0.4); Lymphocytes Absolute Auto 2.4 X10*3/uL (1.2-4.9); MANUAL DIFF FLAG SCAN; Mean Corpuscular HGB Conc 32.3 g/dl (31.0-35.0); Mean Corpuscular Hemoglobin 28.6 pg (27.0-33.0); Mean Corpuscular Volume 88.7 fL (80.0-98.0); NRBC Abs Auto 0.000 X10*3/uL (0.0-0.012); NRBC Pct Auto 0.0 /100WBC (0.0-0.2); Platelet Count 453 X10*3/uL (160-400); Red Blood Count 3.91 X10*6/uL (4.20-5.50); SCAN SMEAR FLAG 1; White Blood Count 19.4 X10*3/uL (4.8-10.8)
[2025-02-23 17:27] LABS: Alanine Aminotransferase 6 U/L (0-31); Albumin Level 4.5 g/dL (3.5-5.0); Alkaline Phosphatase 138 U/L (39-117); Anion Gap 15 (12-20); Aspartate Amino Transferase 16 U/L (5-31); Blood Urea Nitrogen 30 mg/dL (9-16); Calcium 9.6 mg/dL (8.4-10.2); Carbon Dioxide 26 mmol/L (22-29); Chloride 101 mmol/L (96-108); Cholesterol 171 mg/dL (<200); Estimated Glomerular Filt Rate > 60; HDL Cholesterol 41 mg/dL (>40); Potassium 3.5 mmol/L (3.3-5.1); Sodium 138 mmol/L (135-145); Total Protein 7.6 g/dL (6.5-8.0); Triglycerides 149 mg/dL (<150)
== END 2025-02-23 11:28 | disposition home or self-care (01) ==
LOC: HO.HMGCLDS 11:27
PROVIDERS: PCP Internal Medicine; Visit Provider Internal Medicine
DX: I10 Essential (primary) hypertension (principal); J44.1 Chronic obstructive pulmonary disease with (acute) exacerbation; F32.9 Major depressive disorder, single episode, unspecified; F41.9 Anxiety disorder, unspecified; E78.5 Hyperlipidemia, unspecified; Z13.1 Encounter for screening for diabetes mellitus; Z13.21 Encounter for screening for nutritional disorder
CPT/HCPCS: 36415; 80053; 80061; 82306; 83036; 84443; 85025

== ENCOUNTER 2025-02-25 12:49 | Outpatient (REF) | payer BC, SELFPAY ==
--- NOTE | ~2025-02-25 | XR_ITS ---
EXAMINATION: XR CHEST CLINICAL INFORMATION: R05.2 - Subacute cough COMPARISON: 03/16/2023. TECHNIQUE: Frontal view of the chest was obtained. FINDINGS: The cardiac, hilar, and mediastinal contours are normal. There is right middle lobe consolidation. Left lung is clear. No pneumothorax or effusion. No focal osseous or soft tissue abnormality. XR/XR chest 1V IMPRESSION: Right middle lobe consolidation in keeping with pneumonia. Recommend radiographic follow-up after treatment to document resolution. Electronically signed by: Ken Santos MD 02/25/2025 01:44 PM EST
== END 2025-02-25 12:50 | disposition home or self-care (01) ==
LOC: HO.HMGCX 12:49
PROVIDERS: PCP Internal Medicine; Visit Provider Internal Medicine
DX: R05.2 Subacute cough (principal); I10 Essential (primary) hypertension; J44.1 Chronic obstructive pulmonary disease with (acute) exacerbation; F32.9 Major depressive disorder, single episode, unspecified
CPT/HCPCS: 71045

== ENCOUNTER 2025-02-25 12:49 | Outpatient (AMB) | payer BC, SELFPAY ==
[2025-02-25 12:51] VITALS: BP 108/70; PULSE 91; RESP 19; TEMP 36.9; O2SAT 96; BMI 29.5
--- NOTE | 2025-02-25 12:51 | A.OFFPC_ITS ---
Vital Signs 02/25/25 12:51 Height 5 ft 8 in Weight 194 lb BMI 29.5 BP 108/70 Blood Pressure Location Lt brachial Position Sitting Respiration 19 Pulse 91 Pulse Source Pulse Oximeter Temp 98.5 F Temp Source Oral Pulse Oximetry (%) 96 Oxygen Delivery Method Room Air Intake Visit Reasons: 3 week follow up Intake Note: Pt is here today for 3 weeks follow up visit. Pt states that she has been sick for the last 10 days, cough, congestion, chills and bad taste in her mouth when she is couging up phlegm. Allergies sulfamethoxazole Allergy (Intermediate, Verified 02/25/25 12:54) Rash bupropion Adverse Reaction (Intermediate, Verified 02/25/25 12:54) Nausea Medication List - Last Reconciled 02/25/25 by Demetrice Keene MD albuterol sulfate 90 mcg/actuation 2 puffs inhalation Q8H albuterol sulfate 2.5 mg (3 mL) inhalation Q6H PRN 30 days apple cider vinegar 300 mg PO DAILY bupropion HCl XL 300 mg PO DAILY fluoxetine 60 mg PO DAILY rlzuoilxpnf-uyyufdvwg-ccdrwmbp 100-62.5-25 mcg (Trelegy Ellipta) 1 ea inhalation DAILY claudia (Zingiber officinalis) (claudia extract) 250 mg PO DAILY losartan 100 mg PO DAILY multivitamin 1 tab PO DAILY pravastatin 40 mg PO DAILY pregabalin 225 mg PO BID Trelegy Ellipta 200-62.5-25 mcg (rxophxjpaqr-qhnaohduc-zacthwgo) 1 ea inhalation DAILY NS turmeric root extract 500 mg PO DAILY valsartan-hydrochlorothiazide 160-25 mg 1 tab PO DAILY Tobacco use date assessed: 02/25/25 Dental Screening Dental Screen Date: 03/24/24 HPI 3 week follow up HPI Details Pt c/o general fatigue fever, chills, productive cough for 2 weeks. Patient reports increased wheezing and has been using albuterol up to 3 times a day. Patient has been using Trelegy 200 mcg daily. Hypertension is controlled on valsartan. Patient has stopped her antidepressants and is looking for a new psychiatrist complains of chronic anxiety and insomnia but denies suicide ideation or change in appetite PFSH Medical History (Updated 02/25/25 @ 13:18 by Demetrice Keene MD) Cough COPD (chronic obstructive pulmonary disease) Nicotine dependence, cigarettes, uncomplicated Anxiety Depression Basal cell carcinoma DJD (degenerative joint disease) Surgical History History of lung surgery History of chest tube placement History of basal cell carcinoma excision Family History Father Cancer Mother HTN (hypertension) Social History Household Members: None Housing: Apartment Do you presently have visiting nurse or other home services: No Comment: pt refusing alarms Patient Tobacco Use Status: Current everyday Tobacco user Tobacco use type: Cigarette Cigarette Packs Per Day: 1 Cigarettes Per Day: 6 e-Cigarette/Vaping Use: Former Use Second Hand Smoke Exposure: No service: No Current occupational status: employed Cognitive needs: No Hearing needs: No Vision needs: No Questionnaire Thrive Questionnaire Date Thrive assessed: 04/29/24 I am a: Patient What is your living situation today?: I have a steady place to live Within the past 12 months, did the food you bought not last and you didn't have the money to get more?: Never true Within the past 12 months, did you worry whether your food would run out before you got money to buy more?: Never true Do you have trouble paying for medicines?: No Do you have trouble getting transportation to medical appointments?: No Do you have trouble paying your heating and electricity bill?: Yes Do you have trouble taking care of your child, family member or friend?: No Do you have trouble with day-to-day activities such as bathing, preparing meals, shopping, managing finances, etc.?: No Are you currently unemployed and looking for a job?: No Are you interested in more education?: No Please select the resources that you would like help with: None Currently or been in a relationship where the following occur: No concerns reported THRIVE Score: 1 WILLAM-7 AMB Questionnaire WILLAM-7 Date WILLAM - 7 assessed: 03/24/24 Source: Developed by Drs. Pedro Masterson, Laura Perrin, Alexis Saleh and colleagues, with an educational farhad from [employer]. Review of Systems Const All systems reviewed & are unremarkable except as noted in HPI and below Eyes Reports no additional complaints ENT Reports no additional complaints Card Reports no additional complaints Resp Reports no additional complaints GI Reports no additional complaints Reports no additional complaints Physical exam (Primary Care) Vital Signs: Last Vital Signs Temp 98.5 F 02/25/25 12:51 Pulse 91 02/25/25 12:51 Resp 19 02/25/25 12:51 BP 108/70 02/25/25 12:51 Pulse Ox 96 02/25/25 12:51 Oxygen Delivery Method Room Air 02/25/25 12:51 BMI result Body Mass Index 29.5 Tobacco/Smoking Status: Tobacco use Status Tobacco use date assessed 02/25/25 02/25/25 12:58 Patient Tobacco Use Status Current everyday Tobacco 02/25/25 12:51 Tobacco use type Cigarette 02/25/25 12:51 e-Cigarette/Vaping Use Former Use 02/25/25 12:51 Thrive Assessment: Date of Thrive Assessment Date Thrive assessed 04/29/24 02/25/25 12:51 Currently or been in a relationship where the following occur: No concerns reported Const General: no acute distress HENMT Head: Yes normal to inspection Ears: TM's normal bilaterally Throat: Yes posterior oropharynx abnormal and Yes postnasal drainage Eyes General: appearance normal, both eyes and all related structures Neck Neck: Yes supple Resp Effort & Inspection: able to speak in complete sentences and audible wheezes Auscultation: wheezes and diminished lung sounds Cardio Rhythm: regular rhythm Heart sounds: S1 normal heart sound present and S2 normal heart sound present GI Inspection: Yes normal to inspection Palpation (GI): Soft to palpation Percussion: Yes normal to percussion Auscultation: normal bowel sounds Coding Level of Care Code Est Pt Level 4 (04638) Diagnoses Subacute cough R05.2 Cough type: subacute HTN (hypertension) I10 Chronic obstructive pulmonary disease with acute exacerbation J44.1 COPD type: COPD with acute exacerbation Depression F32.9 Assessment & Plan Assessment & Plan (1) Cough: Code(s): R05.9 - Cough, unspecified Category: Medical Qualifiers: Cough type: subacute Qualified Code(s): R05.2 - Subacute cough Plan: Check chest x-ray for COPD exacerbation prednisone taper and Zithromax are prescribed patient was advised to continue Trelegy and albuterol as needed (2) HTN (hypertension): Code(s): I10 - Essential (primary) hypertension Category: Medical Plan: Continue current medications (3) COPD (chronic obstructive pulmonary disease): Comment: Controlled on Trelegy Code(s): J44.9 - Chronic obstructive pulmonary disease, unspecified Category: Medical Qualifiers: COPD type: COPD with acute exacerbation Qualified Code(s): J44.1 - Chronic obstructive pulmonary disease with (acute) exacerbation Plan: As above (4) Depression: Comment: established with psychiatry, recently increased Fluoxetine to 60 mg 10/2023, patient has stopped antidepressant and is looking for a new Psychiatry 02/2025 Code(s): F32.9 - Major depressive disorder, single episode, unspecified Category: Medical Plan: Patient is a process of changing psychiatrist. She is not interested in taking medications Orders: Orders XR chest 1V Today R05.2 - Subacute cough Medications: New azithromycin For 250 mg dose pack: take 500 mg today (day 1), then 250 mg for 4 days (days 2-5) PO 6 tabs 0RF prednisone 4 tabl qd x 3 days,then 3 tabl qd x 3 days, then 2 tabl qd x 3 days, then 1 tabl qd x 3 days orally daily; 30 tabs 0RF Discontinued losartan Discontinued Reason: Doctor's Order 100 mg PO DAILY 90 tabs 3RF qfkxqxepfzv-gsdxaqwup-etazrqbb 100-62.5-25 mcg (Trelegy Ellipta) Discontinued Reason: Doctor's Order 1 ea inhalation DAILY 60 ea 1RF
== END 2025-02-25 13:21 | disposition home or self-care (01) ==
LOC: HO.HMCC 12:50
PROVIDERS: PCP Internal Medicine; Visit Provider Internal Medicine
DX: R05.2 Subacute cough (principal); I10 Essential (primary) hypertension; J44.1 Chronic obstructive pulmonary disease with (acute) exacerbation; F32.9 Major depressive disorder, single episode, unspecified

== ENCOUNTER → 2025-02-25 13:30 | Outpatient (BNV) | payer BC, SELFPAY | PROVIDERS: PCP Internal Medicine; Visit Provider Radiology Diagnostic Radiology | DX: R91.8 Other nonspecific abnormal finding of lung field (principal) | CPT/HCPCS: 71045 ==

== ENCOUNTER 2025-03-10 10:57 | Outpatient (AMB) | payer BC, SELFPAY ==
[2025-03-10 11:02] VITALS: BP 110/74; PULSE 82; O2SAT 97; BMI 28.4
--- NOTE | 2025-03-10 11:02 | A.OFFPC_ITS ---
Vital Signs 03/10/25 11:02 Height 5 ft 8 in Weight 187 lb BMI 28.4 BP 110/74 Blood Pressure Location Lt brachial Position Sitting Pulse 82 Pulse Source Pulse Oximeter Pulse Oximetry (%) 97 Oxygen Delivery Method Room Air Intake Visit Reasons: Follow up after pneumonia Allergies sulfamethoxazole Allergy (Intermediate, Verified 03/10/25 11:02) Rash bupropion Adverse Reaction (Intermediate, Verified 03/10/25 11:02) Nausea Medication List - Last Reconciled 03/10/25 by Demetrice Keene MD albuterol sulfate 2.5 mg (3 mL) inhalation Q6H PRN 30 days albuterol sulfate 90 mcg/actuation 2 puffs inhalation Q8H apple cider vinegar 300 mg PO DAILY bupropion HCl XL 300 mg PO DAILY fluoxetine 60 mg PO DAILY claudia (Zingiber officinalis) (claudia extract) 250 mg PO DAILY multivitamin 1 tab PO DAILY pravastatin 40 mg PO DAILY pregabalin 225 mg PO BID Trelegy Ellipta 200-62.5-25 mcg (ljrlnjgmlxm-vjtmmsljb-yvrwgozw) 1 ea inhalation DAILY NS turmeric root extract 500 mg PO DAILY valsartan-hydrochlorothiazide 160-25 mg 1 tab PO DAILY Tobacco use date assessed: 02/25/25 Fall risk assessment: No Falls in past year Last assessed Fall Risk: 03/10/25 Dental Screening Dental Screen Date: 03/24/24 HPI Follow up after pneumonia HPI Details Patient presents for the follow-up of COPD exacerbation and pneumonia. She completed course of antibiotics and prednisone and is feeling better. Patient has cut down smoking to 2 cigarettes a day and is trying to quit. Hypertension and hyperlipidemia controlled on current medications. Chronic anxiety stable on current medications. [facility] Medical History (Updated 03/10/25 @ 12:07 by Demetrice Keene MD) Pneumonia Cough COPD (chronic obstructive pulmonary disease) Nicotine dependence, cigarettes, uncomplicated Anxiety Depression Basal cell carcinoma DJD (degenerative joint disease) Surgical History History of lung surgery History of chest tube placement History of basal cell carcinoma excision Family History Father Cancer Mother HTN (hypertension) Social History Household Members: None Housing: Apartment Do you presently have visiting nurse or other home services: No Comment: pt refusing alarms Patient Tobacco Use Status: Current everyday Tobacco user Tobacco use type: Cigarette Cigarette Packs Per Day: 1 Cigarettes Per Day: 6 e-Cigarette/Vaping Use: Former Use Second Hand Smoke Exposure: No service: No Current occupational status: employed Cognitive needs: No Hearing needs: No Vision needs: No Questionnaire Thrive Questionnaire Date Thrive assessed: 04/29/24 I am a: Patient What is your living situation today?: I have a steady place to live Within the past 12 months, did the food you bought not last and you didn't have the money to get more?: Never true Within the past 12 months, did you worry whether your food would run out before you got money to buy more?: Never true Do you have trouble paying for medicines?: No Do you have trouble getting transportation to medical appointments?: No Do you have trouble paying your heating and electricity bill?: Yes Do you have trouble taking care of your child, family member or friend?: No Do you have trouble with day-to-day activities such as bathing, preparing meals, shopping, managing finances, etc.?: No Are you currently unemployed and looking for a job?: No Are you interested in more education?: No Currently or been in a relationship where the following occur: No concerns reported THRIVE Score: 1 WILLAM-7 AMB Questionnaire WILLAM-7 Date WILLAM - 7 assessed: 03/24/24 Source: Developed by Drs. Pedro Masterson, Laura Perrin, Alexis Saleh and colleagues, with an educational farhad from [employer]. Review of Systems Const All systems reviewed & are unremarkable except as noted in HPI and below Eyes Reports no additional complaints Card Reports no additional complaints Resp Reports no additional complaints GI Reports no additional complaints Reports no additional complaints Physical exam (Primary Care) Vital Signs: Last Vital Signs Pulse 82 03/10/25 11:02 BP 110/74 03/10/25 11:02 Pulse Ox 97 03/10/25 11:02 Oxygen Delivery Method Room Air 03/10/25 11:02 BMI result Body Mass Index 28.4 Tobacco/Smoking Status: Tobacco use Status Tobacco use date assessed 02/25/25 03/10/25 11:04 Patient Tobacco Use Status Current everyday Tobacco 03/10/25 11:04 Tobacco use type Cigarette 03/10/25 11:04 e-Cigarette/Vaping Use Former Use 03/10/25 11:04 Thrive Assessment: Date of Thrive Assessment Date Thrive assessed 04/29/24 03/10/25 11:04 Currently or been in a relationship where the following occur: No concerns reported Const General: no acute distress HENMT Head: Yes normal to inspection Mouth: Normal oral and palatal mucosa present Resp Effort & Inspection: normal respiratory effort Auscultation: diminished lung sounds Cardio Rhythm: regular rhythm Heart sounds: S1 normal heart sound present and S2 normal heart sound present Coding Level of Care Code Est Pt Level 4 (61108) Diagnoses Pneumonia J18.9 Chronic obstructive pulmonary disease with acute exacerbation J44.1 COPD type: COPD with acute exacerbation HTN (hypertension) I10 Assessment & Plan Assessment & Plan (1) Pneumonia: Code(s): J18.9 - Pneumonia, unspecified organism Category: Medical Plan: Repeat chest x-ray in 1 week. (2) COPD (chronic obstructive pulmonary disease): Comment: Controlled on Trelegy Code(s): J44.9 - Chronic obstructive pulmonary disease, unspecified Category: Medical Qualifiers: COPD type: COPD with acute exacerbation Qualified Code(s): J44.1 - Chronic obstructive pulmonary disease with (acute) exacerbation Plan: Continue Trelegy albuterol as needed and patient is trying to quit smoking will try Chantix. Follow-up in 1 month (3) HTN (hypertension): Code(s): I10 - Essential (primary) hypertension Category: Medical Plan: Continue medications Orders: Orders XR chest 1V Today J15.9 - Unspecified bacterial pneumonia Medications: New albuterol sulfate 90 mcg/actuation 2 puffs inhalation Q8H 8.5 grams 2RF varenicline tartrate (Chantix Starting Month Box) PO PER PKG DIR 53 ea 0RF varenicline tartrate (Chantix Continuing Month Box) 1 mg PO BID 56 tabs 1RF
== END 2025-03-10 11:38 | disposition home or self-care (01) ==
LOC: HO.HMCC 10:58
PROVIDERS: PCP Internal Medicine; Visit Provider Internal Medicine
DX: J18.9 Pneumonia, unspecified organism (principal); J44.1 Chronic obstructive pulmonary disease with (acute) exacerbation; I10 Essential (primary) hypertension